=== PATIENT | female | born 1935 | race Caucasian/White ===

== ENCOUNTER 2016-09-02 05:07 | Inpatient (IN) | payer MEDICARE, OTHER ==
[~2016-09-02] VITALS: Ht 152.4 cm; Wt 73.3 kg
[~2016-09-02 05:07] MED LIST: AMLO5TAB4 PO; CALC500T11 PO; CHOL500051 PO; CLON0.2T5 PO; DOCU-144 PO; EZET10TA3 PO; FER325 PO; GLIM2TAB PO; HYDR-3498 PO; LORA1TAB PO; MECL12.574 PO; METO25TA7 PO; OLME40TA14 PO; OMEP20CA16 PO; ROSU20TA PO; SENN8.6C3 PO; SOLI5TAB5 PO; ZOLP5TAB PO
[2016-09-02] MEDS ORDERED: morphine 4 MG/ML VIAL IV STA ×2 (05:12→20:17)
[2016-09-02] MEDS ORDERED: HYDROmorphONE 1 MG/ML SYG IV STA ×3 (05:14→08:30)
--- NOTE | 2016-09-02 06:12 | RADRPT ---
PROCEDURE: Right hip. CLINICAL INDICATION: Pain. TECHNIQUE: Two views of the right hip were obtained. COMPARISON: 01/19/2015. FINDINGS: There is comminuted fractures of the right proximal humerus involving in the intertrochanteric regio n. There is a mildly displaced fracture of the right lesser trochanter. There is no dislocation. T here is mild narrowing of the right hip joint space. Bone mineralization is within normal limits. There is no radiopaque foreign body or abnormal calcification. IMPRESSION: Comminuted right intertrochanteric and proximal femoral shaft fractures. .Judson Burr MD, Date Time Electronically viewed and signed by .Judson Burr MD, MD on 09/02/2016 06:12 .T/
[2016-09-02] MEDS ORDERED: ONDANSETRON 4 MG INJ IV STA (06:29)
[2016-09-02] MEDS ORDERED: LORAZEPAM 2 MG INJ IV ONE (07:00)
[2016-09-02 07:17] LABS: ADD SCAN DIFF NO
[2016-09-02 07:21] LABS: ABNORMAL IP MESSAGE 1; HEMATOCRIT 36.7 % (37.0-47.0); HEMOGLOBIN 12.2 g/dl (12.0-16.0); MEAN CORPUSCULAR HEMOGLOBIN 30.7 pg (29.0-33.0); MEAN CORPUSCULAR HGB CONC 33.2 g/dl (32.0-37.0); MEAN CORPUSCULAR VOLUME 92.2 fl (82.0-101.0); MEAN PLATELET VOLUME 10.2 fl (7.4-10.4); PLATELET COUNT 258 10^3/UL (140-415); RED BLOOD COUNT 3.98 10^6/ul (4.20-5.40); RED CELL DISTRIBUTION WIDTH 12.6 % (11.5-14.5)
[2016-09-02 07:26] LABS: INR 1.01; PARTIAL THROMBOPLASTIN TIME 25.4 Sec (25.0-35.0); PROTIME 13.3 Sec (12.2-14.2)
[2016-09-02 07:28] LABS: ALANINE AMINOTRANSFERASE 30 IU/L (13-69); ALBUMIN 4.2 g/dl (3.3-4.9); ALBUMIN/GLOBULIN RATIO 1.27; ALKALINE PHOSPHATASE 52 IU/L (42-121); ANION GAP 16 (8-16); ASPARTATE AMINO TRANSFERASE 21 IU/L (15-46); BILIRUBIN,INDIRECT 0.1 mg/dl (0-1.1); BILIRUBIN,TOTAL 0.1 mg/dl (0.2-1.3); BLOOD UREA NITROGEN 20 mg/dl (7-20); CALCIUM 9.5 mg/dl (8.4-10.2); CARBON DIOXIDE 24 mmol/L (21-31); CHLORIDE 105 mmol/L (97-110); GLUCOSE 177 mg/dl (70-220); POTASSIUM 3.9 mmol/L (3.5-5.1); SODIUM 141 mmol/L (135-144); TOTAL PROTEIN 7.5 g/dl (6.1-8.1)
--- NOTE | 2016-09-02 07:30 | RADRPT ---
PROCEDURE: XR Chest. CLINICAL INDICATION: Status post fall, hip fracture. TECHNIQUE: AP Portable chest. COMPARISON: Chest x-ray 01/31/2014. FINDINGS: The cardiomediastinal silhouette is normal. Atherosclerotic calcifications of the thoracic aorta ar e noted. There are scattered interstitial markings seen in the lungs bilaterally, stable since the prior study. No areas of consolidation are noted. No pleural effusion is seen. Degenerative change s of the thoracic spine are evident. IMPRESSION: 1. No radiographic evidence of acute cardiopulmonary disease. 2. Unchanged interstitial prominence in the lungs bilaterally. 3. Atherosclerotic calcifications of the thoracic aorta. RPTAT: HJAH .Jo Gonzalez MD, MD Date Time Electronically viewed and signed by .Jo Gonzalez MD, on 09/02/2016 07:29 .H/
[2016-09-02 07:43] LABS: TROPONIN-I < 0.012 ng/ml (0.00-0.12)
--- NOTE | 2016-09-02 08:36 | ERA ---
ER Documentation Chief Complaint Date/Time DATE: 09/02/16 TIME: 08:33 Chief Complaint BIBA RA39, rt hip pain r/t fall, possible dislocation HPI This is an 81-year-old female who was getting up to use the bathroom early this morning and she lost her balance and sustained a mechanical fall that resulted in her landing on her right hip, resulting in a inability to stand or move her right leg due to pain. There is no loss of consciousness no head injury. She denies headache neck pain back pain chest pain shortness of breath abdominal pain. Patient is sharp pain in her right hip this worse with movement and better with rest. No radiation of pain. ROS All systems reviewed and are negative except as per history of present illness. Medications Home Meds Active Scripts Clonidine Hcl* (Clonidine Hcl*) 0.2 Mg Tablet, 0.2 MG PO Q8 Y for SBP>170, #30 TAB Prov:EDINSON PAREDES 03/21/16 Docusate Sodium* (Colace*) 100 Mg Capsule, 100 MG PO TID, #30 Prov:RUDY CARRIZALES MD 01/19/15 Hydrocodone Bit-Acetaminophen* (Olalla*) 5-325 Mg Tab, 1 TAB PO Q6 Y for PAIN, # 16 TAB Prov:RUDY CARRIZALES MD 01/19/15 Reported Medications Omeprazole* (Omeprazole*) 20 Mg Capsule.dr, 20 MG PO DAILY, #30 CAP 03/18/16 Meclizine Hcl* (Antivert*) 12.5 Mg Tab, 12.5 MG PO Q8H Y for VERTIGO, #30 TAB 03/18/16 Ezetimibe* (Zetia*) 10 Mg Tablet, 10 MG PO HS, TAB 03/18/16 Rosuvastatin Calcium* (Crestor*) 20 Mg Tablet, 20 MG PO QHS, #30 TAB 03/18/16 Calcium Carbonate (Oysco-500) 500 Mg Tablet, 500 MG PO DAILY, TAB 03/18/16 Cholecalciferol (Vitamin D3) (Vitamin D3) 50,000 Unit Capsule, 88668 UNIT PO WEEKLY, CAP 03/18/16 Solifenacin* (Vesicare*) 5 Mg Tablet, 5 MG PO DAILY, TAB 03/18/16 Lorazepam* (Lorazepam*) 1 Mg Tablet, 1 MG PO QPM, TAB 01/31/14 Lorazepam* (Lorazepam*) 1 Mg Tablet, 0.5 MG PO QAM, TAB 01/31/14 Zolpidem Tartrate* (Ambien*) 5 Mg Tablet, 10 MG PO HS Y for INSOMNIA, TAB 01/31/14 Sennosides* (Senna*) 8.6 Mg Capsule, 17.2 MG PO BID, CAP 01/31/14 Olmesartan Medoxomil (Benicar) 40 Mg Tablet, 40 MG PO DAILY, TAB 01/31/14 Ferrous Sulfate* (Ferrous Sulfate*) 325 Mg Tabec, 325 MG PO DAILY, TAB 01/31/14 Amlodipine Besylate* (Norvasc*) 5 Mg Tablet, 5 MG PO DAILY, TAB 01/31/14 Metoprolol Succinate* (Toprol XL*) 25 Mg Tab.sr.24h, 25 MG PO DAILY, TAB 01/31/14 Glimepiride* (Glimepiride*) 2 Mg Tablet, 2 MG PO BID, TAB 01/31/14 Allergies Allergies: Coded Allergies: aspirin (Verified Allergy, Mild, 01/31/14) ibuprofen (Verified Allergy, Unknown, 01/31/14) PMhx/Soc History of Surgery: Yes (R Colles' fx, lap. cholecystectomy, appy, cataract) Anesthesia Reaction: No Hx Neurological Disorder: Yes (DM type 2) Hx Respiratory Disorders: No Hx Cardiac Disorders: Yes (HTN) Hx Psychiatric Problems: No Hx Alcohol Use: No Hx Substance Use: No Hx Tobacco Use: No Smoking Status: Never smoker FmHx Family History: No coronary disease Physical Exam Vitals Vital Signs Date Time Temp Pulse Resp B/P Pulse Ox O2 Delivery O2 Flow Rate FiO2 09/02/16 06:33 Nasal Cannula 2 09/02/16 06:13 98.2 104 18 196/77 97 Room Air 09/02/16 05:11 98.2 95 18 184/98 98 09/02/16 05:10 100 20 185/80 100 Room Air Physical Exam Const: Well-developed, well-nourished Head: Atraumatic, normocephalic Eyes: Normal Conjunctiva, PERRLA, EOMI, normal sclera, no nystagmus ENT: Normal External Ears, Nose and Mouth, moist mucus membranes. Neck: Full range of motion. No meningismus, no lymphadenopathy. Resp: Clear to auscultation bilaterally, no wheezing, rhonchi, rales Cardio: Regular rate and rhythm, no murmurs, S1 S2 present Abd: Soft, non tender x 4, non distended. Normal bowel sounds, no guarding or rebound, no pulsitile abdominal masses or bruits Skin: No petechiae or rashes, no ecchymosis , no maculopapular rash Back: No midline or flank tenderness Ext: No cyanosis, or edema, FROM x 4, normal inspection, neurovascularly intact x 3, there is no movement of the right hip due to pain. There is a deformity of the right leg is shortened Neur: Awake and alert, STR 5/5 x 4, sensation intact x 4, no focal findings, cerebellum intact Psych: Normal Mood and Affect Result Diagram: 09/02/1651409/02/1615 Results 24 hrs Laboratory Tests Test 09/02/16 05:15 White Blood Count 14.110^3/ul Red Blood Count 3.9810^6/ul Hemoglobin 12.2g/dl Hematocrit 36.7% Mean Corpuscular Volume 92.2fl Mean Corpuscular Hemoglobin 30.7pg Mean Corpuscular Hemoglobin Concent 33.2g/dl Red Cell Distribution Width 12.6% Platelet Count 08508^3/UL Mean Platelet Volume 10.2fl Prothrombin Time 13.3Sec Prothrombin Time Ratio 1.0 INR International Normalized Ratio 1.01 Activated Partial Thromboplast Time 25.4Sec Sodium Level 141mmol/L Potassium Level 3.9mmol/L Chloride Level 105mmol/L Carbon Dioxide Level 24mmol/L Anion Gap 16 Blood Urea Nitrogen 20mg/dl Creatinine 0.90mg/dl Glucose Level 177mg/dl Calcium Level 9.5mg/dl Total Bilirubin 0.1mg/dl Direct Bilirubin 0.00mg/dl Indirect Bilirubin 0.1mg/dl Aspartate Amino Transf (AST/SGOT) 21IU/L Alanine Aminotransferase (ALT/SGPT) 30IU/L Alkaline Phosphatase 52IU/L Troponin I < 0.012ng/ml Total Protein 7.5g/dl Albumin 4.2g/dl Globulin 3.30g/dl Albumin/Globulin Ratio 1.27 Current Medications Medications (Trade) Dose Ordered Sig/Roxie Route PRN Reason Start Time Stop Time Status Last Admin Dose Admin Morphine Sulfate (morphine) 4 mg ONCE STAT IV 09/02/16 05:12 09/02/16 05:15 DC Hydromorphone HCl (Dilaudid) 1 mg ONCE STAT IV 09/02/16 05:14 09/02/16 05:15 DC 09/02/16 05:19 Hydromorphone HCl (Dilaudid) 1 mg ONCE STAT IV 09/02/16 06:29 09/02/16 06:32 DC 09/02/16 06:34 Ondansetron HCl (Zofran Inj) 4 mg ONCE STAT IV 09/02/16 06:29 09/02/16 06:32 DC 09/02/16 06:36 Lorazepam (Ativan) 1 mg ONCE ONCE IV 09/02/16 07:00 09/02/16 07:01 DC 09/02/16 07:04 Hydromorphone HCl (Dilaudid) 1 mg ONCE STAT IV 09/02/16 08:30 09/02/16 08:31 DC 09/02/16 08:33 Procedures/MDM PROCEDURE: XR Chest. CLINICAL INDICATION: Status post fall, hip fracture. TECHNIQUE: AP Portable chest. COMPARISON: Chest x-ray 01/31/2014. FINDINGS: The cardiomediastinal silhouette is normal. Atherosclerotic calcifications of the thoracic aorta are noted. There are scattered interstitial markings seen in the lungs bilaterally, stable since the prior study. No areas of consolidation are noted. No pleural effusion is seen. Degenerative changes of the thoracic spine are evident. IMPRESSION: 1. No radiographic evidence of acute cardiopulmonary disease. 2. Unchanged interstitial prominence in the lungs bilaterally. 3. Atherosclerotic calcifications of the thoracic aorta. RPTAT: HJAH .Jo Gonzalez MD, Date Time Electronically viewed and signed by .Jo Gonzalez MD, on 09/02/2016 07:29 .H/ CC: BEE KOCH DO PROCEDURE: Right hip. CLINICAL INDICATION: Pain. TECHNIQUE: Two views of the right hip were obtained. COMPARISON: 01/19/2015. FINDINGS: There is comminuted fractures of the right proximal humerus involving in the intertrochanteric region. There is a mildly displaced fracture of the right lesser trochanter. There is no dislocation. There is mild narrowing of the right hip joint space. Bone mineralization is within normal limits. There is no radiopaque foreign body or abnormal calcification. IMPRESSION: Comminuted right intertrochanteric and proximal femoral shaft fractures. .Judson Burr MD, Date Time Electronically viewed and signed by .Judson Burr MD, on 09/02/2016 06:12 .T/ CC: SOWMYA MODI DO Spoke with Dr. Roberts of orthopedics will see her in consultation. Spoke with Dr. Wall of panel for admission. She will get surgical clearance before operative repair right hip fracture EKG: Rate/Rhythm: Normal Sinus Rhythm,NL intervals QRS, ST, QT: NORMAL [place], QRS, QT] Impression: NORMAL EKG Departure Diagnosis: Primary Impression: Comminuted fracture of right hip Qualified Code: S72.091A - Comminuted fracture of right hip, closed, initial encounter Condition: Stable BEE KOCH RhondaBonifacio RAY September 02, 2016 08:36
[2016-09-02] MEDS ORDERED: SOD CHLORIDE 0.9% 1,000 ML IV SCH (08:37)
[2016-09-02 08:56] LABS: EOSINOPHILS # 0.3 10^3/ul (0.0-0.5); LYMPHOCYTES # 10.3 10^3/ul (0.8-2.9); MONOCYTE # 0.4 10^3/ul (0.3-0.9); NEUTROPHIL # 3.1 10^3/ul (1.6-7.5)
[2016-09-02 08:57] LABS: BURR CELLS OCCASIONAL
[2016-09-02] MEDS ORDERED: ACETAMINOPHEN 325 MG TAB PO PRN ×2 (09:00→10:00)
[2016-09-02] MEDS ORDERED: ONDANSETRON 4 MG INJ IV PRN ×2 (09:00→10:00)
[2016-09-02] MEDS ORDERED: morphine 2 MG INJ IV PRN (10:00)
[2016-09-02] MEDS ORDERED: NACL 0.9% 3 ML SYG IV SCH (10:00)
[2016-09-02] MEDS ORDERED: BISACODYL (EC) 5 MG TAB PO PRN (10:00)
[2016-09-02] MEDS ORDERED: hydrALAzine 20 MG INJ IV PRN (10:00)
[2016-09-02] MEDS ORDERED: MAGNESIUM HYDROXIDE 30ML CUP PO PRN (10:00)
[2016-09-02 10:21] VITALS: TEMP 98.3
[2016-09-02] MEDS ORDERED: Discontinue Glyburide, Glipizide, and/or Glimepiride prior to starting Insulin XX ONE (10:30)
[2016-09-02] MEDS ORDERED: GLUCOSE GEL 15 GRAM TUBE BUCCAL PRN (10:30)
[2016-09-02] MEDS ORDERED: DEXTROSE 50% 50 ML SYRINGE IV PRN ×2 (10:30)
[2016-09-02] MEDS ORDERED: GLUCOSE GEL 15 GRAM TUBE PO PRN ×2 (10:30)
[2016-09-02] MEDS ORDERED: HYPOGLYCEMIA PROTOCOL when Glucose is <70 mg/dL or symptomatic <90 mg/dL. XX ONE (10:30)
[2016-09-02] MEDS ORDERED: GLUCAGON 1 MG INJ IM PRN (10:30)
[2016-09-02 11:00] VITALS: Ht 152.4 cm; Wt 73.3 kg
[2016-09-02 11:10] VITALS: BP 185/80; RESP 24
[2016-09-02] MEDS: HYDROCODONE/APAP (5/325) TAB PO PRN ×2 (12:48→19:02)
[2016-09-02] MEDS: DOCUSATE SODIUM 100 MG CAP PO SCH ×2 (12:48→21:06)
[2016-09-02] MEDS: INSULIN ASPART [NOVOLOG] 3 ML PEN SC SCH ×5 (12:57→21:00)
[2016-09-02] MEDS ORDERED: morphine 2 MG INJ IV STA (15:09)
[2016-09-02] MEDS ORDERED: morphine 4 MG/ML VIAL IV PRN (15:30)
--- NOTE | 2016-09-02 16:15 | HP ---
DATE OF ADMISSION: 09/02/2016 TIME OF EVALUATION: 9:00 a.m. REASON FOR ADMISSION: Status post mechanical fall with right hip pain. CONSULTATIONS: 1. Dr. Ashok Roberts, Orthopedic Surgery. 2. Dr. Richardson Cannon, Cardiology. HISTORY OF PRESENT ILLNESS: This is an 81-year-old Ma[place] female with past medical history of essential hypertension, type 2 diabetes mellitus, dyslipidemia, carotid artery disease, multiple falls and recent left inferior and superior pubic rami fracture in 03/2016, who was brought to the emergency room status post fall at home. As per the patient's son, who was at the bedside , the patient had a mechanical fall while she was trying to get out of the bathroom. There was no reported presyncope or syncope. There was no reported loss of consciousness. There was no reported head injury. The patient uses a walker for walking. After the fall, the patient was having a sharp right hip pain and also noticeable deformity of the right hip joint. Hence, the patient was brought to the emergency room. The patient denied any chest pain, dyspnea, abdominal pain, diarrhea, hematochezia or dysuria. In the emergency room, the patient underwent a right hip x-ray that showed comminuted right intertrochanteric and proximal femoral shaft fractures. The patient was noticed to have leukocytosis with no bandemia. The patient's chest x-ray was negative for acute intra-thoracic findings. The patient was treated with IV analgesics in the emergency room. 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 Left inferior and superior pubic rami fracture. PAST SURGICAL HISTORY: Laparoscopic cholecystectomy, appendectomy, cataract surgery. HOME MEDICATIONS: 1. Clonidine 0.2 mg p.o. q.8 hours p.r.n. SBP greater than 170 mmHg. 2. Colace 100 mg p.o. t.i.d. 3. [place] 5/325 one tablet p.o. q.6 hours p.r.n. pain 4. Meclizine 12.5 mg p.o. q.8 hours p.r.n. vertigo. 5. Zetia 10 mg p.o. at bedtime. 6. Crestor 20 mg p.o. at bedtime. 7. Calcium carbonate 500 mg p.o. daily. 8. Vitamin D3 50,000 units p.o. weekly. 9. VESIcare 5 mg p.o. daily. 10. Lorazepam 1 mg p.o. q.a.m. p.r.n. anxiety. 11. Ambien 10 mg p.o. at bedtime p.r.n. insomnia. 12. Benicar 40 mg p.o. daily. 13. Ferrous sulfate 325 mg p.o. daily. 14. Amlodipine 5 mg p.o. daily. 15. Metoprolol succinate 25 mg p.o. daily. 16. Glimepiride 20 p.o. b.i.d. ALLERGIES: 1. ASPIRIN. 2. IBUPROFEN. SOCIAL HISTORY: The patient lives at home with her family. The patient currently uses a walker for ambulation. She denied any history of tobacco, alcohol or illicit drug use. REVIEW OF SYSTEMS: A 12-point review of systems were made and review of systems are negative other than what is mentioned in the history of present illness. PHYSICAL EXAMINATION: VITAL SIGNS: Temperature 98.2, pulse rate 80, respiratory rate 15, blood pressure is 177/60, oxygen saturation 97% on room air. GENERAL: This is a fragile looking 81-year-old female lying in bed in no apparent distress. HEENT: Head normocephalic and atraumatic. Eyes: Anicteric sclerae. Conjunctivae clear. ENT: Nasal septum is midline. Mucosa is dry. NECK: Supple. JVD noticed. RESPIRATORY: Bilaterally diminished breath sounds. No use of accessory muscles of respiration. No adventitious breath sounds. CARDIAC: S1, S2 heard. Regular rate and rhythm. GASTROINTESTINAL: Abdomen soft, nontender, nondistended. Bowel sounds positive in all 4 quadrants. GENITOURINARY: Deferred. EXTREMITIES: Right lower extremity externally rotated right hip joint. Tenderness to palpation of the right hip. Bilateral lower extremity pedal edema. Bilateral lower extremities, diminished peripheral pulses. NEUROLOGIC: The patient is awake, alert and oriented. Cranial nerves are grossly intact. LABORATORY AND DIAGNOSTIC DATA: WBC 14.1, hemoglobin 12.2, hematocrit 36.7, platelet count 258. Sodium 141, potassium 3.9, chloride 105, carbon dioxide 24 , anion gap 15, BUN 20, creatinine 0.96, glucose 177, calcium 9.5, AST 21, ALT 30, alkaline phosphatase 52. Troponin 0.012. PT 13.3, INR 1.01, aPTT 25.4. Chest x-ray: No acute intrathoracic findings. Hip x-ray. Comminuted right intratrochanteric and proximal femoral shaft fractures. IMPRESSION: This is an 81-year-old female with multiple comorbidities who was brought to the emergency room status post a fall at home with resultant right hip intertrochanteric fracture and proximal femoral shaft fracture, who will be admitted here for further treatment and evaluation. ASSESSMENT AND PLAN: 1. Status post mechanical fall with right femoral intratrochanteric and the proximal femoral shaft fracture. The patient will be kept on bed rest. The patient was provided with adequate pain control. The patient probably needs surgical repair. Cardiology consult will be obtained for cardiac clearance since the patient has multiple comorbidities. 2. Essential hypertension. The patient was maintained on antihypertensives including p.r.n. antihypertensives for any systolic blood pressure readings greater than 160 mmHg. 3. Type 2 diabetes mellitus. The patient will be started on sliding scale insulin along with basal insulin and premeal insulin. 4. Dyslipidemia. The patient will be maintained on a statin. A fasting lipid panel will be obtained. 5. 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 6. Osteoporosis. The patient will be maintained on vitamin D supplements. A vitamin D level will be obtained. 7. Leukocytosis, most probably reactive in origin. Will obtain a urinalysis on this patient. Plan. The patient will be admitted to inpatient setting. The patient will be started on a carbohydrate controlled low cholesterol diet. The patient was started on DVT prophylaxis and gastrointestinal prophylaxis. The patient will remain a FULL CODE. Activities will be as tolerated. The rest of the patient's management will be based on her clinical course, the results of diagnostic studies, and inputs from consultants. Based on the patient's clinical presentation, she most probably requires more than 2 midnights' stay for further management and evaluation of her clinical presentation. The case and management of this patient was fully discussed with Dr. Wall. CELY WALL MD, AM/THOMAS Conf#: [id number] DID#: [id number] [facility]
[2016-09-02] MEDS: morphine 4 MG/ML VIAL IV PRN (17:27)
--- NOTE | 2016-09-02 18:18 | CONS ---
DATE OF ADMISSION: 09/02/2016 DATE OF CONSULTATION: 09/02/2016 HISTORY OF PRESENT ILLNESS: The patient is an 81-year-old [place] female who was admitted on 09/02 when she was brought into the emergency room because of the painful swelling and deformity inv olving her right hip. She obviously was ambulating with walker until the day of injury, when she shelby d sustained a ground-level fall while she was trying to get out of the bathroom. Following the fall , there was a severe pain and swelling involving the right hip and she was not able to stand up or w alk. She is known to have multiple medical problems including essential hypertension, diabetes mellitus, dyslipidemia, carotid artery disease. Because of her multiple falls in the past, she had a pelvic f racture in March 2016. She obviously was conscious after the accident. She denies any head inju malcom. PHYSICAL EXAMINATION: My examination revealed an 81-year-old female who seems to be alert and orien kulwant, even though there was a language barrier. There was tenderness and swelling around the right h ip. Her right lower extremity was obviously shortened and externally rotated. There was no evidenc e of acute neurovascular compromise involving the right lower extremity. DIAGNOSTIC STUDIES: X-rays of the right hip revealed a severely comminuted intertrochanteric fractu re and subtrochanteric fracture. The greater trochanter and lesser trochanter were obviously averse d. DIAGNOSTIC IMPRESSION: Four part intertrochanteric and subtrochanteric fracture of the right femur, extremely comminuted and obviously unstable. TREATMENT PLAN: To carry out the open reduction and internal fixation as soon as she can be medical ly cleared for surgery. Dictated By: ADIN KWAN MD IK/NTS Conf#: [id number] DID#: [id number] CC: ANGELA DURHAM MD;*EndCC*
[2016-09-02 18:57] VITALS: BP 193/79; RESP 18
[2016-09-02] MEDS ORDERED: HYDROCODONE/APAP (10/325) TAB PO PRN (20:30)
[2016-09-02] MEDS ORDERED: GLIMEPIRIDE 2 MG TAB PO SCH (21:00)
[2016-09-02] MEDS ORDERED: ZOLPIDEM 5 MG TAB PO PRN (21:00)
[2016-09-02] MEDS: EZETIMIBE 10 MG TAB PO SCH (21:06)
[2016-09-02] MEDS: FAMOTIDINE 20 MG TAB PO SCH (21:06)
[2016-09-02] MEDS: ATORVASTATIN 80 MG TAB PO SCH (21:06)
[2016-09-02] MEDS: INSULIN GLARGINE [LANtus] 3 ML PEN SC SCH (21:27)
[2016-09-02 21:30] VITALS: BP 140/65; RESP 16
[2016-09-03] MEDS: morphine 4 MG/ML VIAL IV PRN ×5 (00:46→22:02)
[2016-09-03] MEDS: ACCUCHECK AT 2AM (Patients on SS coverage) XX SCH ×2 (02:00→22:51)
[2016-09-03] MEDS ORDERED: HYDROmorphONE 1 MG/ML SYG IV STA (03:46)
[2016-09-03] MEDS: HYDROCODONE/APAP (10/325) TAB PO PRN ×3 (03:57→15:40)
[2016-09-03 05:54] LABS: ADD SCAN DIFF NO
[2016-09-03 05:58] LABS: BASOPHILS % 0.2 % (0.0-2.0); EOSINOPHILS # 0.1 10^3/ul (0.0-0.5); EOSINOPHILS % 0.5 % (0.0-7.0); HEMATOCRIT 31.3 % (37.0-47.0); HEMOGLOBIN 9.9 g/dl (12.0-16.0); LYMPHOCYTES # 4.5 10^3/ul (0.8-2.9); LYMPHOCYTES % 36.3 % (15.0-51.0); MEAN CORPUSCULAR HEMOGLOBIN 29.7 pg (29.0-33.0); MEAN CORPUSCULAR HGB CONC 31.6 g/dl (32.0-37.0); MEAN PLATELET VOLUME 10.1 fl (7.4-10.4); MONOCYTE # 1.1 10^3/ul (0.3-0.9); MONOCYTES % 9.2 % (0.0-11.0); NEUTROPHIL # 6.6 10^3/ul (1.6-7.5); NEUTROPHILS % 53.4 % (39.0-77.0); PLATELET COUNT 197 10^3/UL (140-415); RED BLOOD COUNT 3.33 10^6/ul (4.20-5.40); WHITE BLOOD COUNT 12.4 10^3/ul (4.8-10.8)
[2016-09-03 06:19] LABS: CHOL/HDL RATIO 1.8 RATIO; MAGNESIUM 1.2 mg/dl (1.7-2.5); PHOSPHORUS 4.6 mg/dl (2.5-4.9)
[2016-09-03 06:26] LABS: TROPONIN-I 0.061 ng/ml (0.00-0.12)
--- NOTE | 2016-09-03 06:53 | CONS ---
DATE OF ADMISSION: 09/02/2016 DATE OF CONSULTATION: 09/02/2016 REASON FOR CONSULTATION: Preop cardiac clearance. HISTORY OF PRESENT ILLNESS: The patient is an 81-year-old female who had a fall in the middle of e night as she was going to the restroom. Apparently per son she felt dizzy prior to the fall, but n o syncope. No history of palpitations, chest pain, shortness of breath. No nausea, vomiting, no fe destinee, chills or rigors. PAST MEDICAL HISTORY: Significant for: 1. Coronary artery disease status post myocardial infarction. 2. Obesity. 3. Urinary incontinence. 4. Anxiety disorder. 5. Bilateral carotid artery stenosis. 6. Osteoporosis. 7. Alzheimer disease. 8. History of pelvic fracture. SOCIAL HISTORY: No smoking, alcohol or recreational drugs. ALLERGIES: ASPIRIN, IBUPROFEN. CURRENT MEDICATIONS: 1. Lovenox. 2. Amlodipine. 3. Calcium carbonate. 4. Ferrous sulfate. 5. Metoprolol. 6. VESIcare. 7. Losartan. 8. Vitamin D. 9. Famotidine. 10. Zetia. 11. Insulin. 12. Lipitor. 13. Colace. REVIEW OF SYSTEMS: unremarkable except that mentioned in the HPI. PHYSICAL EXAMINATION: VITAL SIGNS: Temperature 98.1, heart rate of 65, blood pressure 113/57 mmHg, breathing at 18 and sa turating 98%. GENERAL: Patient awake, alert, in no apparent distress. NECK: No JVD or carotid bruit. CARDIOVASCULAR: Regular rate and rhythm, no murmur, rub or gallop. LUNGS: Clear to auscultation. ABDOMEN: Soft. Bowel sounds are present. There is no organomegaly. EXTREMITIES: No pedal edema. Pedal pulses are felt bilaterally. DIAGNOSTIC DATA: Review of 12-lead EKG shows normal sinus rhythm with a ventricular rate of 92 beat s per minute with normal ID, normal QRS and normal QT interval. There was no acute ST-T wave change s. Chest x-ray shows no congestion or infiltrates. Hip x-ray shows right intertrochanteric and proximal femoral shaft fracture. LABORATORY DATA: WBC of 40.1, hemoglobin 12.2, hematocrit 36.7, with a platelet of 258. Sodium 141 , potassium 3.9, chloride 105, CO2 24, BUN 20, creatinine 0.9. Troponin first set is negative. TSH is elevated at 5.3. ASSESSMENT AND PLAN: 1. An 81-year-old female with a right intertrochanteric and proximal femoral shaft fracture. 2. Coronary artery disease status post myocardial infarction. 3. Hypertension. 4. Diabetes. 5. Dyslipidemia. 6. History of pelvic fracture. 7. Osteoporosis. 8. DJD. Review of 12-lead EKG shows normal sinus rhythm with no acute ST-T wave changes. SUMMARY: 1. Recommend a 2-D echo to assess for segmental wall motion abnormality and rule out for pulmonary hypertension and pericardial disease. 2. Recommend Lexiscan to rule out for reversible ischemia, since she has history of coronary artery disease status post [place] in the past and with traditional cardiac risk factors. 3. Trend troponins, BMP. 4. Continue current metoprolol, amlodipine and losartan as scheduled. 5. Continue Zetia and Lipitor. 6. Continue Insulin. 7. Continue GI and DVT prophylaxis. Patient will be cleared after review of 2D echocardiogram and stress test. Dictated By: MICHAEL DOWD MD SR/THOMAS Conf#: [id number] DID#: [id number]
[2016-09-03 06:57] LABS: POTASSIUM 3.9 mmol/L (3.5-5.1)
[2016-09-03 06:59] LABS: CREATININE 0.78 mg/dl (0.44-1.00)
[2016-09-03 07:00] LABS: CALCIUM 8.3 mg/dl (8.4-10.2)
[2016-09-03 07:37] VITALS: BP 121/59; RESP 18
[2016-09-03] MEDS: INSULIN ASPART [NOVOLOG] 3 ML PEN SC SCH ×7 (08:03→20:18)
[2016-09-03] MEDS: SOLIFENACIN 5 MG TAB PO SCH (08:04)
[2016-09-03] MEDS: METOPROLOL (XL) 25 MG TAB PO SCH (08:04)
[2016-09-03] MEDS: LOSARTAN 50 MG TAB PO SCH (08:04)
[2016-09-03] MEDS: CHOLECALCIFEROL 1,000 UNIT TAB PO SCH (08:04)
[2016-09-03] MEDS: CALCIUM CARBONATE 1.25 GM TAB PO SCH (08:04)
[2016-09-03] MEDS: AMLODIPINE 5 MG TAB PO SCH (08:04)
[2016-09-03] MEDS: FERROUS SULFATE (EC) 325 MG TAB PO SCH (08:04)
[2016-09-03] MEDS: DOCUSATE SODIUM 100 MG CAP PO SCH ×3 (08:04→20:17)
[2016-09-03] MEDS: ENOXAPARIN 30 MG/0.3 ML SYG SC SCH (08:05)
[2016-09-03] MEDS: REGADENOSON 0.4 MG/5 ML SYG ONE ×2 (10:53→11:55)
[2016-09-03] MEDS: LORAZEPAM 2 MG INJ IV PRN (11:23)
--- NOTE | 2016-09-03 12:02 | CONS ---
Date/Time of Note Date/Time of Note DATE: 09/03/16 TIME: 11:54 Assessment/Plan Assessment/Plan Chief Complaint/Hosp Course Imp: 1.Pre-op-for Hiop fx 2. s/p fall-? mechanical 3. H/O cad/MA 4.HTN 5.Dyslipidemia Recc: -Continue BB/ARB/CCB -Continue pain control -Lexiscan stress test today Problems: Consultation Date/Type/Reason Admit Date/Time September 02, 2016 at 08:37 Initial Consult Date 09/02/2016 Type of Consultation: Cardiology Reason for Consultation Pre-op Referring Provider: ANGELA DURHAM Exam/Review of Systems Vital Signs Vitals Vital Signs Date Time Temp Pulse Resp B/P Pulse Ox O2 Delivery O2 Flow Rate FiO2 09/03/16 07:37 98.8 110 18 121/59 96 09/02/16 21:30 Nasal Cannula 2.0 Intake and Output 09/02/16 09/02/16 09/03/16 15:00 23:00 07:00 Intake Total 740 ml 720 ml Output Total 700 ml 500 ml Balance 40 ml 220 ml Exam Review of Systems: CONSTITUTIONAL: No fevers, chills. PULMONARY: No sob CARDIOVASCULAR: No chest pain/palpitations GASTROINTESTINAL: No nausea/vomiting. GENITOURINARY: No hematuria/dysuria. MUSCULOSKELETAL: No myagias/arthalgias. PSYCHIATRIC: The patient denies depression. NEUROLOGIC: No weakness Constitutional: alert Psych: no complaints Head: normocephalic ENMT: mucosa pink and moist Neck: jvd, supple Respiratory: diminished breath sounds (at bases/B) Cardiovascular: regular rate and rhythm Gastrointestinal: non-tender, soft Musculoskeletal: other (s/p Hip fx) Results Result Diagram: 09/03/16 0525 09/03/16 0525 Results 24 hrs Laboratory Tests Test 09/02/16 12:20 09/02/16 17:29 09/02/16 18:35 09/02/16 21:09 Bedside Glucose 185 110 129 Troponin I 0.068 Test 09/03/16 00:21 09/03/16 05:25 09/03/16 07:57 Troponin I 0.075 0.061 White Blood Count 12.4 H Red Blood Count 3.33 L Hemoglobin 9.9 L Hematocrit 31.3 L Mean Corpuscular Volume 94.0 Mean Corpuscular Hemoglobin 29.7 Mean Corpuscular Hemoglobin Concent 31.6 L Red Cell Distribution Width 13.0 Platelet Count 197 # Mean Platelet Volume 10.1 Neutrophils % 53.4 Lymphocytes % 36.3 Monocytes % 9.2 Eosinophils % 0.5 Basophils % 0.2 Nucleated Red Blood Cells % 0.0 Neutrophils # 6.6 Lymphocytes # 4.5 H Monocytes # 1.1 H Eosinophils # 0.1 Basophils # 0.0 Nucleated Red Blood Cells # 0.0 Sodium Level 142 Potassium Level 3.9 Chloride Level 106 Carbon Dioxide Level 24 Anion Gap 16 Blood Urea Nitrogen 15 Creatinine 0.78 Glucose Level 153 Calcium Level 8.3 L Phosphorus Level 4.6 Magnesium Level 1.2 L Triglycerides Level 109 Cholesterol Level 73 L LDL Cholesterol, Calculated 11 HDL Cholesterol 40 Cholesterol/HDL Ratio 1.8 Bedside Glucose 132 Medications Medications Current Medications Lorazepam (Ativan) 0.5 mg Q6H PRN IV ANXIETY Last administered on 09/03/16 11: 23; Admin Dose 0.5 MG; Start 09/02/16 at 10:00 Ondansetron HCl (Zofran Inj) 4 mg Q6H PRN IV NAUSEA AND/OR VOMITING; Start at 10:00 Acetaminophen (Tylenol Tab) 650 mg Q6H PRN PO PAIN LEVEL 1-3 OR FEVER; Start at 10:00 Magnesium Hydroxide (Milk Of Mag) 30 ml DAILY PRN PO CONSTIPATION; Start at 10:00 Bisacodyl (Dulcolax) 5 mg DAILY PRN PO CONSTIPATION; Start 09/02/16 at 10:00 Famotidine (Pepcid) 20 mg Q24H PO Last administered on 09/02/16 21:06; Admin Dose 20 MG; Start 09/02/16 at 21:00 Enoxaparin Sodium (Lovenox) 30 mg DAILY SC ; Start 09/03/16 at 09:00 Hydralazine HCl (Apresoline) 10 mg Q6H PRN IV SBP>160; Start 09/02/16 at 10:00 Amlodipine Besylate (Norvasc) 5 mg DAILY PO ; Start 09/03/16 at 09:00 Calcium Carbonate (Oyster Shell Calcium) 0.5 gm DAILY PO ; Start 09/03/16 at 09: 00 Docusate Sodium (Colace) 100 mg TID PO Last administered on 09/02/16 21:06; Admin Dose 100 MG; Start 09/02/16 at 13:00 EZETIMIBE (Zetia) 10 mg HS PO Last administered on 09/02/16 21:06; Admin Dose 10 MG; Start 09/02/16 at 21:00 Ferrous Sulfate (Ferrous Sulfate (Ec)) 325 mg DAILY PO ; Start 09/03/16 at 09:00 Metoprolol Succinate (Toprol Xl) 25 mg DAILY PO ; Start 09/03/16 at 09:00 Solifenacin (Vesicare) 5 mg DAILY PO ; Start 09/03/16 at 09:00 Losartan Potassium (Cozaar) 100 mg DAILY PO ; Start 09/03/16 at 09:00 Atorvastatin Calcium (Lipitor) 80 mg DAILY@21 PO Last administered on 21:06; Admin Dose 80 MG; Start 09/02/16 at 21:00 Cholecalciferol (Vitamin D) 1,000 unit DAILY PO ; Start 09/03/16 at 09:00 Insulin Glargine (Lantus) 15 unit DAILY@20 SC Last administered on 09/02/16 21 :27; Admin Dose 15 UNIT; Start 09/02/16 at 20:00 Miscellaneous Information 1 ea NOTE XX ; Start 09/02/16 at 10:30 Glucose (Glutose) 15 gm Q15M PRN PO DECREASED GLUCOSE; Start 09/02/16 at 10:30 Glucose (Glutose) 22.5 gm Q15M PRN PO DECREASED GLUCOSE; Start 09/02/16 at 10: 30 Dextrose (D50w Syringe) 25 ml Q15M PRN IV DECREASED GLUCOSE; Start 09/02/16 at 10:30 Dextrose (D50w Syringe) 50 ml Q15M PRN IV DECREASED GLUCOSE; Start 09/02/16 at 10:30 Glucagon (Glucagen) 1 mg Q15M PRN IM DECREASED GLUCOSE; Start 09/02/16 at 10:30 Glucose (Glutose) 15 gm Q15M PRN BUCCAL DECREASED GLUCOSE; Start 09/02/16 at 10 :30 Diagnostic Test (Pha) (Accu-Chek) 1 ea 02 XX ; Start 09/03/16 at 02:00 Morphine Sulfate (morphine) 4 mg Q4H PRN IV SEVERE PAIN LEVEL 7-10 Last administered on 09/03/16 08:01; Admin Dose 4 MG; Start 09/02/16 at 15:30 Morphine Sulfate (morphine) 4 mg Q4H PRN IV Pain; Start 09/02/16 at 15:30 Acetaminophen/ Hydrocodone Bitart ([place] (10/325)) 1 tab Q4H PRN PO PAIN Last administered on 09/02/16 22:33; Admin Dose 1 TAB; Start 09/02/16 at 20:30 Acetaminophen/ Hydrocodone Bitart ([place] (10/325)) 2 tab Q4H PRN PO PAIN Last administered on 09/03/16 10:04; Admin Dose 2 TAB; Start 09/03/16 at 04:00 AMANDA DICK September 03, 2016 12:02
[2016-09-03 13:11] VITALS: BP 199/73; PULSE 126; RESP 22
--- NOTE | 2016-09-03 13:17 | RADRPT ---
PROCEDURE: Lexiscan myocardial perfusion study CLINICAL INDICATION: 81 -year-old patient complaining of chest pain. TECHNIQUE: Lexiscan 0.4 mg intravenously separate acquisition gated myocardial perfusion SPECT usi ng Tc 99m Myoview 30.2 mCi intravenously at stress and Tc-99m Myoview, 10.0 mCi intravenously at res t was performed using the rest/stress sequence. Poststress Myoview SPECT images were obtained in th e supine position. COMPARISON: No prior studies. FINDINGS: Perfusion images reveal no evidence of perfusion defects. Lexiscan post stress gated SPECT images demonstrate no wall motion abnormalities. IMPRESSION: 1. Normal study with no evidence of perfusion defects or wall motion abnormalities. 2. The left ventricle ejection fraction at stress is greater than 70%. A call report was made to Dr. Metzger at 01:15 p.m. on September 03, 2016 RPTAT: HH .Stephanie Marin MD, Date Time Electronically viewed and signed by .Stephanie Marin MD, on 09/03/2016 13:16 .L/
--- NOTE | 2016-09-03 13:42 | PN ---
Date/Time of Note Date/Time of Note DATE: 09/03/16 TIME: 13:41 Assessment/Plan VTE Prophylaxis VTE Prophylaxis Intervention: LMWH Lines/Catheters IV Catheter Type (from [place]): Peripheral IV Urinary Cath still in place: Yes Reason Cath still needed: other (indicate) Assessment/Plan Chief Complaint/Hosp Course 1. Status post mechanical fall with right femoral intratrochanteric and the proximal femoral shaft fracture. The patient will be kept on bed rest. The patient will be provided with adequate pain control. Orthopedic Surgery recommending surgical intervention. 2. Essential hypertension. The patient will be maintained on antihypertensives including p.r.n. antihypertensives for any systolic blood pressure readings greater than 160 mmHg. 3. Type 2 diabetes mellitus. The patient will be continued on sliding scale insulin along with basal insulin and premeal insulin. 4. Dyslipidemia. The patient will be maintained on statins. Fasting lipid panel satisfactory. 5. 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 6. Osteoporosis. The patient will be maintained on vitamin D supplements. 7. Leukocytosis. Most probably reactive in origin. Will obtain a urinalysis on this patient. 8. Fluids, electrolytes, and nutrition. Carbohydrate controlled diet. 9. DVT prophylaxis. Subcutaneous Lovenox. 10. Gastrointestinal prophylaxis. Histamine 2 receptor blockers. Plan. Continue pain control. Await surgical intervention. Replete magnesium. Perioperative risk stratification: The patient has multiple comorbidities including essential hypertension, DM, and dyslipidemia. The patient has a underlying acute right hip fracture. Given the patient's comorbidities, she is at intermediate risk for untoward medical complications perioperatively. Nevertheless, the benefits would outweigh the risks of any surgical intervention for the acute right hip fracture. Case discussed with Dr. Hu. Problems: Subjective 24 Hr Interval Summary Free Text/Dictation The patient is S/P cardiac stress test today. Exam/Review of Systems Vital Signs Vitals Vital Signs Date Time Temp Pulse Resp B/P Pulse Ox O2 Delivery O2 Flow Rate FiO2 09/03/16 13:11 126 22 199/73 99 Nasal Cannula 4.0 09/03/16 07:37 98.8 Intake and Output 09/02/16 09/02/16 09/03/16 15:00 23:00 07:00 Intake Total 740 ml 720 ml Output Total 700 ml 500 ml Balance 40 ml 220 ml Exam GENERAL: This is a fragile looking 81-year-old female lying in bed in no apparent distress. HEENT: Head normocephalic and atraumatic. Eyes: Anicteric sclerae. Conjunctivae clear. ENT: Nasal septum is midline. Mucosa is dry. NECK: Supple. JVD noticed. RESPIRATORY: Bilaterally diminished breath sounds. No use of accessory muscles of respiration. No adventitious breath sounds. CARDIAC: S1, S2 heard. Regular rate and rhythm. GASTROINTESTINAL: Abdomen soft, nontender, nondistended. Bowel sounds positive in all 4 quadrants. GENITOURINARY: Deferred. EXTREMITIES: Right lower extremity externally rotated right hip joint. Tenderness to palpation of the right hip. Bilateral lower extremity pedal edema. Bilateral lower extremities, diminished peripheral pulses. NEUROLOGIC: The patient is awake, alert and oriented. Cranial nerves are grossly intact. Results Result Diagram: 09/03/16 0525 09/03/16 0525 Results 24 hrs Laboratory Tests Test 09/02/16 17:29 09/02/16 18:35 09/02/16 21:09 09/03/16 00:21 Bedside Glucose 110 129 Troponin I 0.068 0.075 Test 09/03/16 05:25 09/03/16 07:57 09/03/16 13:15 White Blood Count 12.4 H Red Blood Count 3.33 L Hemoglobin 9.9 L Hematocrit 31.3 L Mean Corpuscular Volume 94.0 Mean Corpuscular Hemoglobin 29.7 Mean Corpuscular Hemoglobin Concent 31.6 L Red Cell Distribution Width 13.0 Platelet Count 197 # Mean Platelet Volume 10.1 Neutrophils % 53.4 Lymphocytes % 36.3 Monocytes % 9.2 Eosinophils % 0.5 Basophils % 0.2 Nucleated Red Blood Cells % 0.0 Neutrophils # 6.6 Lymphocytes # 4.5 H Monocytes # 1.1 H Eosinophils # 0.1 Basophils # 0.0 Nucleated Red Blood Cells # 0.0 Sodium Level 142 Potassium Level 3.9 Chloride Level 106 Carbon Dioxide Level 24 Anion Gap 16 Blood Urea Nitrogen 15 Creatinine 0.78 Glucose Level 153 Calcium Level 8.3 L Phosphorus Level 4.6 Magnesium Level 1.2 L Troponin I 0.061 Triglycerides Level 109 Cholesterol Level 73 L LDL Cholesterol, Calculated 11 HDL Cholesterol 40 Cholesterol/HDL Ratio 1.8 Bedside Glucose 132 196 Medications Medications Current Medications Lorazepam (Ativan) 0.5 mg Q6H PRN IV ANXIETY Last administered on 09/03/16 11: 23; Admin Dose 0.5 MG; Start 09/02/16 at 10:00 Ondansetron HCl (Zofran Inj) 4 mg Q6H PRN IV NAUSEA AND/OR VOMITING; Start at 10:00 Acetaminophen (Tylenol Tab) 650 mg Q6H PRN PO PAIN LEVEL 1-3 OR FEVER; Start at 10:00 Magnesium Hydroxide (Milk Of Mag) 30 ml DAILY PRN PO CONSTIPATION; Start at 10:00 Bisacodyl (Dulcolax) 5 mg DAILY PRN PO CONSTIPATION; Start 09/02/16 at 10:00 Famotidine (Pepcid) 20 mg Q24H PO Last administered on 09/02/16 21:06; Admin Dose 20 MG; Start 09/02/16 at 21:00 Enoxaparin Sodium (Lovenox) 30 mg DAILY SC ; Start 09/03/16 at 09:00 Hydralazine HCl (Apresoline) 10 mg Q6H PRN IV SBP>160; Start 09/02/16 at 10:00 Amlodipine Besylate (Norvasc) 5 mg DAILY PO ; Start 09/03/16 at 09:00 Calcium Carbonate (Oyster Shell Calcium) 0.5 gm DAILY PO ; Start 09/03/16 at 09: 00 Docusate Sodium (Colace) 100 mg TID PO Last administered on 09/02/16 21:06; Admin Dose 100 MG; Start 09/02/16 at 13:00 EZETIMIBE (Zetia) 10 mg HS PO Last administered on 09/02/16 21:06; Admin Dose 10 MG; Start 09/02/16 at 21:00 Ferrous Sulfate (Ferrous Sulfate (Ec)) 325 mg DAILY PO ; Start 09/03/16 at 09:00 Metoprolol Succinate (Toprol Xl) 25 mg DAILY PO ; Start 09/03/16 at 09:00 Solifenacin (Vesicare) 5 mg DAILY PO ; Start 09/03/16 at 09:00 Losartan Potassium (Cozaar) 100 mg DAILY PO ; Start 09/03/16 at 09:00 Atorvastatin Calcium (Lipitor) 80 mg DAILY@21 PO Last administered on 21:06; Admin Dose 80 MG; Start 09/02/16 at 21:00 Cholecalciferol (Vitamin D) 1,000 unit DAILY PO ; Start 09/03/16 at 09:00 Insulin Glargine (Lantus) 15 unit DAILY@20 SC Last administered on 09/02/16 21 :27; Admin Dose 15 UNIT; Start 09/02/16 at 20:00 Miscellaneous Information 1 ea NOTE XX ; Start 09/02/16 at 10:30 Glucose (Glutose) 15 gm Q15M PRN PO DECREASED GLUCOSE; Start 09/02/16 at 10:30 Glucose (Glutose) 22.5 gm Q15M PRN PO DECREASED GLUCOSE; Start 09/02/16 at 10: 30 Dextrose (D50w Syringe) 25 ml Q15M PRN IV DECREASED GLUCOSE; Start 09/02/16 at 10:30 Dextrose (D50w Syringe) 50 ml Q15M PRN IV DECREASED GLUCOSE; Start 09/02/16 at 10:30 Glucagon (Glucagen) 1 mg Q15M PRN IM DECREASED GLUCOSE; Start 09/02/16 at 10:30 Glucose (Glutose) 15 gm Q15M PRN BUCCAL DECREASED GLUCOSE; Start 09/02/16 at 10 :30 Diagnostic Test (Pha) (Accu-Chek) 1 ea 02 XX ; Start 09/03/16 at 02:00 Morphine Sulfate (morphine) 4 mg Q4H PRN IV SEVERE PAIN LEVEL 7-10 Last administered on 09/03/16 13:08; Admin Dose 4 MG; Start 09/02/16 at 15:30 Morphine Sulfate (morphine) 4 mg Q4H PRN IV Pain; Start 09/02/16 at 15:30 Acetaminophen/ Hydrocodone Bitart ([place] (10/325)) 1 tab Q4H PRN PO PAIN Last administered on 09/02/16 22:33; Admin Dose 1 TAB; Start 09/02/16 at 20:30 Acetaminophen/ Hydrocodone Bitart ([place] (10/325)) 2 tab Q4H PRN PO PAIN Last administered on 09/03/16 10:04; Admin Dose 2 TAB; Start 09/03/16 at 04:00 CELY WHATLEY NP September 03, 2016 13:42
[2016-09-03 14:00] VITALS: BP 139/75; PULSE 110; RESP 18
--- NOTE | 2016-09-03 15:40 | RADRPT ---
Echocardiogram Report Patient Name: CYNTHIA RAMIREZ Gender: Female Date: 1935 Study Date: 03-Sep-2016 [employer] Professor: Michael Dale [facility] Location: [id number] Ref. Physician: RICHARDSON CANNON Quality: Good Procedures: Transthoracic echocardiogram with complete 2D, M-Mode, and doppler examination. Indications: Pre-op. 2D/M Mode Doppler Measurement Value Normal Ranges Measurement Value Normal Ranges LVIDd 2D 3.4 3.5 - 5.6 cm AV Peak Rebel 1.9 m/sec LVIDs 2D 2.2 2.1 - 4.1 cm AV Peak PG 15.0 mmHg FS 2D 34.7 % AI Peak PG 44.0 mmHg LVPWd 2D 0.8 0.6 - 1.1 cm AI Peak Rebel 3.3 m/sec IVSd 2D 0.8 0.6 - 1.1 cm AI PHT 361.0 msec IVS/LVPW 2D 1.0 LVOT Peak Rebel 1.1 m/sec AoR Diam 2D 2.5 2.0 - 3.7 cm LVOT Peak PG 4.0 mmHg LA/Ao 2D 1 0 - 1 TR Peak Rebel 2.6 m/sec EDV 2D 40.4 cm3 TR Peak PG 27.0 mmHg ESV 2D 11.2 cm3 RVSP 30.0 mmHg LA Dimen 2D 2.9 2.3 - 4.0 cm Findings Left Ventricle: Normal left ventricular systolic function. Normal left ventricular cavity size. Normal left ventricular wall thickness. Ejection fraction is visually estimated at 65 %. Tissue Doppler/Mitral Doppler indices are consistent with impaired relaxation (Stage I diastolic dysfunction). Right Ventricle: Normal right ventricular size. Normal right ventricular systolic function. Left Atrium: The left atrium is normal in size. Right Atrium: The right atrium is normal in size. Mitral Valve: Mitral valve leaflets appear mildly thickened. Mild mitral annular calcification. Trace mitral regurgitation. Aortic Valve: No hemodynamically significant aortic stenosis by doppler. Aortic cusps appear mildly calcified. Trace aortic valve regurgitation. Tricuspid Valve: Normal appearance of the tricuspid valve. Estimated peak PA systolic pressure 30 mmHg. There is trace tricuspid regurgitation. Pulmonic Valve: Normal pulmonic valve appearance. Pericardium: Normal pericardium with no significant pericardial effusion. Aorta: Normal aortic root. IVC: Normal size and normal respiratory collapse consistent with normal right atrial pressure. Conclusions Normal left ventricular systolic function. Normal left ventricular cavity size. Normal left ventricular wall thickness. Ejection fraction is visually estimated at 65 %. Tissue Doppler/Mitral Doppler indices are consistent with impaired relaxation (Stage I diastolic dysfunction). Normal right ventricular size. Normal right ventricular systolic function. No hemodynamically significant aortic stenosis by doppler. Aortic cusps appear mildly calcified. Trace aortic valve regurgitation. Mitral valve leaflets appear mildly thickened. Mild mitral annular calcification. Trace mitral regurgitation. Normal appearance of the tricuspid valve. Estimated peak PA systolic pressure 30 mmHg. There is trace tricuspid regurgitation. Normal pericardium with no significant pericardial effusion. Electronically Signed By: Richardson Cannon 03-Sep-2016 15:39:11 -0700 Patient Name: CYNTHIA RAMIREZ Study Date: 03-Sep-2016 [id number]
[2016-09-03] MEDS ORDERED: MAGNESIUM SULFATE 3 GM in SOD CHLORIDE 0.9% 100 ML IVPB ONE (16:00)
[2016-09-03 19:47] VITALS: BP 189/83; RESP 18
[2016-09-03 20:09] VITALS: BP 125/56; PULSE 107
[2016-09-03] MEDS: ATORVASTATIN 80 MG TAB PO SCH (20:17)
[2016-09-03] MEDS: EZETIMIBE 10 MG TAB PO SCH (20:17)
[2016-09-03] MEDS: FAMOTIDINE 20 MG TAB PO SCH (20:17)
[2016-09-03] MEDS: INSULIN GLARGINE [LANtus] 3 ML PEN SC SCH (20:22)
[2016-09-03] MEDS ORDERED: DEXTROSE 5%-0.45% NACL 1,000 ML IV SCH (22:00)
[2016-09-04] MEDS: morphine 4 MG/ML VIAL IV PRN ×3 (02:21→11:24)
[2016-09-04 04:00] VITALS: BP 131/64; PULSE 102
[2016-09-04 05:50] LABS: ADD SCAN DIFF NO
[2016-09-04 05:59] LABS: BASOPHILS % 0.3 % (0.0-2.0); EOSINOPHILS % 0.3 % (0.0-7.0); HEMATOCRIT 29.8 % (37.0-47.0); HEMOGLOBIN 9.7 g/dl (12.0-16.0); LYMPHOCYTES # 3.3 10^3/ul (0.8-2.9); MEAN CORPUSCULAR HEMOGLOBIN 29.9 pg (29.0-33.0); MEAN CORPUSCULAR HGB CONC 32.6 g/dl (32.0-37.0); MEAN PLATELET VOLUME 10.1 fl (7.4-10.4); MONOCYTE # 0.8 10^3/ul (0.3-0.9); MONOCYTES % 6.8 % (0.0-11.0); NEUTROPHIL # 7.6 10^3/ul (1.6-7.5); NEUTROPHILS % 64.3 % (39.0-77.0); PLATELET COUNT 182 10^3/UL (140-415); RED BLOOD COUNT 3.24 10^6/ul (4.20-5.40); RED CELL DISTRIBUTION WIDTH 12.9 % (11.5-14.5); WHITE BLOOD COUNT 11.9 10^3/ul (4.8-10.8)
[2016-09-04 06:05] LABS: POTASSIUM 3.6 mmol/L (3.5-5.1)
[2016-09-04 06:08] LABS: CALCIUM 8.5 mg/dl (8.4-10.2); CREATININE 0.78 mg/dl (0.44-1.00)
[2016-09-04 06:11] LABS: PHOSPHORUS 2.1 mg/dl (2.5-4.9)
--- NOTE | 2016-09-04 07:35 | PN ---
Date/Time of Note Date/Time of Note DATE: 09/04/16 TIME: 07:33 Assessment/Plan VTE Prophylaxis VTE Prophylaxis Intervention: LMWH Lines/Catheters IV Catheter Type (from Nrs): Peripheral IV Urinary Cath still in place: Yes Reason Cath still needed: other (indicate) Assessment/Plan Chief Complaint/Hosp Course 1. Status post mechanical fall with right femoral intratrochanteric and the proximal femoral shaft fracture. The patient will be kept on bed rest. The patient will be provided with adequate pain control. Orthopedic Surgery recommending surgical intervention. 2. Essential hypertension. The patient will be maintained on antihypertensives including p.r.n. antihypertensives for any systolic blood pressure readings greater than 160 mmHg. 3. Type 2 diabetes mellitus. The patient will be continued on sliding scale insulin along with basal insulin and premeal insulin. 4. Dyslipidemia. The patient will be maintained on statins. Fasting lipid panel satisfactory. 5. 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 6. Osteoporosis. The patient will be maintained on vitamin D supplements. 7. Leukocytosis. Most probably reactive in origin. Improving. 8. Fluids, electrolytes, and nutrition. Carbohydrate controlled diet. 9. DVT prophylaxis. Subcutaneous Lovenox. 10. Gastrointestinal prophylaxis. Histamine 2 receptor blockers. Plan. Continue pain control. Await surgical intervention. Replete phosphorous. Perioperative risk stratification: The patient has multiple comorbidities including essential hypertension, DM, and dyslipidemia. The patient has a underlying acute right hip fracture. Given the patient's comorbidities, she is at intermediate risk for untoward medical complications perioperatively. Nevertheless, the benefits would outweigh the risks of any surgical intervention for the acute right hip fracture. Case discussed with Dr. Hu. Problems: Subjective 24 Hr Interval Summary Free Text/Dictation Complains of right hip pain. Exam/Review of Systems Vital Signs Vitals Vital Signs Date Time Temp Pulse Resp B/P Pulse Ox O2 Delivery O2 Flow Rate FiO2 09/04/16 04:00 102 131/64 95 Nasal Cannula 3.0 09/03/16 19:47 97.3 18 Intake and Output 09/03/16 09/03/16 09/04/16 15:00 23:00 07:00 Intake Total 946 ml 600 ml Output Total 450 ml Balance 496 ml 600 ml Exam GENERAL: This is a fragile looking 81-year-old female lying in bed in no apparent distress. HEENT: Head normocephalic and atraumatic. Eyes: Anicteric sclerae. Conjunctivae clear. ENT: Nasal septum is midline. Mucosa is dry. NECK: Supple. JVD noticed. RESPIRATORY: Bilaterally diminished breath sounds. No use of accessory muscles of respiration. No adventitious breath sounds. CARDIAC: S1, S2 heard. Regular rate and rhythm. GASTROINTESTINAL: Abdomen soft, nontender, nondistended. Bowel sounds positive in all 4 quadrants. GENITOURINARY: Deferred. EXTREMITIES: Right lower extremity externally rotated right hip joint. Tenderness to palpation of the right hip. Bilateral lower extremity pedal edema. Bilateral lower extremities, diminished peripheral pulses. NEUROLOGIC: The patient is awake, alert and oriented. Cranial nerves are grossly intact. Results Result Diagram: 09/04/1652509/04/16525 Results 24 hrs Laboratory Tests Test 09/03/16 07:57 09/03/16 13:15 09/03/16 17:16 09/03/16 18:30 Bedside Glucose 132 196 208 Troponin I 0.041 Test 09/03/16 20:11 09/04/16 05:26 Bedside Glucose 118 White Blood Count 11.9 H Red Blood Count 3.24 L Hemoglobin 9.7 L Hematocrit 29.8 L Mean Corpuscular Volume 92.0 Mean Corpuscular Hemoglobin 29.9 Mean Corpuscular Hemoglobin Concent 32.6 Red Cell Distribution Width 12.9 Platelet Count 182 Mean Platelet Volume 10.1 Neutrophils % 64.3 Lymphocytes % 28.0 Monocytes % 6.8 Eosinophils % 0.3 Basophils % 0.3 Nucleated Red Blood Cells % 0.0 Neutrophils # 7.6 H Lymphocytes # 3.3 H Monocytes # 0.8 Eosinophils # 0.0 Basophils # 0.0 Nucleated Red Blood Cells # 0.0 Sodium Level 139 Potassium Level 3.6 Chloride Level 106 Carbon Dioxide Level 22 Anion Gap 15 Blood Urea Nitrogen 11 Creatinine 0.78 Glucose Level 221 H Calcium Level 8.5 Phosphorus Level 2.1 #L Magnesium Level 2.0 Medications Medications Current Medications Lorazepam (Ativan) 0.5 mg Q6H PRN IV ANXIETY Last administered on 09/03/16t 11: 23; Admin Dose 0.5 MG; Start 09/02/16 at 10:00 Ondansetron HCl (Zofran Inj) 4 mg Q6H PRN IV NAUSEA AND/OR VOMITING; Start at 10:00 Acetaminophen (Tylenol Tab) 650 mg Q6H PRN PO PAIN LEVEL 1-3 OR FEVER; Start at 10:00 Magnesium Hydroxide (Milk Of Mag) 30 ml DAILY PRN PO CONSTIPATION; Start at 10:00 Bisacodyl (Dulcolax) 5 mg DAILY PRN PO CONSTIPATION; Start 09/02/16 at 10:00 Famotidine (Pepcid) 20 mg Q24H PO Last administered on 09/03/16 20:17; Admin Dose 20 MG; Start 09/02/16 at 21:00 Enoxaparin Sodium (Lovenox) 30 mg DAILY SC ; Start 09/03/16 at 09:00 Hydralazine HCl (Apresoline) 10 mg Q6H PRN IV SBP>160; Start 09/02/16 at 10:00 Amlodipine Besylate (Norvasc) 5 mg DAILY PO ; Start 09/03/16 at 09:00 Calcium Carbonate (Oyster Shell Calcium) 0.5 gm DAILY PO ; Start 09/03/16 at 09: 00 Docusate Sodium (Colace) 100 mg TID PO Last administered on 09/03/16 20:17; Admin Dose 100 MG; Start 09/02/16 at 13:00 EZETIMIBE (Zetia) 10 mg HS PO Last administered on 09/03/16 20:17; Admin Dose 10 MG; Start 09/02/16 at 21:00 Ferrous Sulfate (Ferrous Sulfate (Ec)) 325 mg DAILY PO ; Start 09/03/16 at 09:00 Metoprolol Succinate (Toprol Xl) 25 mg DAILY PO ; Start 09/03/16 at 09:00 Solifenacin (Vesicare) 5 mg DAILY PO ; Start 09/03/16 at 09:00 Losartan Potassium (Cozaar) 100 mg DAILY PO ; Start 09/03/16 at 09:00 Atorvastatin Calcium (Lipitor) 80 mg DAILY@21 PO Last administered on 20:17; Admin Dose 80 MG; Start 09/02/16 at 21:00 Cholecalciferol (Vitamin D) 1,000 unit DAILY PO ; Start 09/03/16 at 09:00 Insulin Glargine (Lantus) 15 unit DAILY@20 SC Last administered on 09/03/16 20 :22; Admin Dose 15 UNIT; Start 09/02/16 at 20:00 Miscellaneous Information 1 ea NOTE XX ; Start 09/02/16 at 10:30 Glucose (Glutose) 15 gm Q15M PRN PO DECREASED GLUCOSE; Start 09/02/16 at 10:30 Glucose (Glutose) 22.5 gm Q15M PRN PO DECREASED GLUCOSE; Start 09/02/16 at 10: 30 Dextrose (D50w Syringe) 25 ml Q15M PRN IV DECREASED GLUCOSE; Start 09/02/16 at 10:30 Dextrose (D50w Syringe) 50 ml Q15M PRN IV DECREASED GLUCOSE; Start 09/02/16 at 10:30 Glucagon (Glucagen) 1 mg Q15M PRN IM DECREASED GLUCOSE; Start 09/02/16 at 10:30 Glucose (Glutose) 15 gm Q15M PRN BUCCAL DECREASED GLUCOSE; Start 09/02/16 at 10 :30 Diagnostic Test (Pha) (Accu-Chek) 1 ea 02 XX ; Start 09/03/16 at 02:00 Morphine Sulfate (morphine) 4 mg Q4H PRN IV SEVERE PAIN LEVEL 7-10 Last administered on 09/04/16 06:09; Admin Dose 4 MG; Start 09/02/16 at 15:30 Morphine Sulfate (morphine) 4 mg Q4H PRN IV Pain; Start 09/02/16 at 15:30 Acetaminophen/ Hydrocodone Bitart ([employer] (10/325)) 1 tab Q4H PRN PO PAIN Last administered on 09/02/16 22:33; Admin Dose 1 TAB; Start 09/02/16 at 20:30 Acetaminophen/ Hydrocodone Bitart 2 tab 2 tab Q4H PRN PO PAIN Last administered on 09/03/16 15:40; Admin Dose 2 TAB; Start 09/03/16 at 04:00 Dextrose/Sodium Chloride (D5-1/2ns) 1,000 ml @ 75 mls/hr [id number] IV Last administered on 09/03/16 22:05; Admin Dose 75 MLS/HR; Start 09/03/16 at 22:00 CELY WHATLEY NP September 04, 2016 07:35
[2016-09-04 07:52] VITALS: BP 180/74; RESP 19
[2016-09-04] MEDS: INSULIN ASPART [NOVOLOG] 3 ML PEN SC SCH ×7 (08:00→21:01)
--- NOTE | 2016-09-04 08:02 | CARRPT ---
DATE OF PROCEDURE: 09/02/2016 TYPE OF PROCEDURE: Lexiscan Cardiolite stress test, electrocardiogram portion. INDICATION: Preoperative evaluation, abnormal electrocardiogram, assess for ischemia. BASELINE VITAL SIGNS AND ELECTROCARDIOGRAM: Pulse of 94, blood pressure 118/84. Electrocardiogram reveals normal sinus rhythm at 94, normal axis, normal intervals, with nonspecific ST ____. PROCEDURE: The patient ____ over 10 seconds followed by radiolabeled tracer. The patient's test wa s stopped due to completion of protocol. Maximal achieved maximum heart rate during the test 131. Maximal blood pressure during the test 117/31. SYMPTOMS: The patient had no obvious chest pain or shortness of breath during stress testing. The patient is somewhat agitated, ____ throughout the test. ELECTROCARDIOGRAM FINDINGS: The patient did not develop any new Lexiscan-induced ST or T-wave chapman es from baseline abnormalities. Patient had occasional PVCs. IMPRESSION: 1. No Lexiscan-induced ST or T-wave changes from baseline abnormalities of diagnostic cardiac ische manish. 2. No complaints of chest pain or shortness of breath during stress test. 3. Single PVC contractions during stress testing. 4. Report of nuclear images to follow in separate dictation. Dictated By: AMANDA MCINTOSH/THOMAS Conf#: [id number] DID#: [id number] CC: ANGELA DURHAM MD;*EndCC*
[2016-09-04] MEDS ORDERED: morphine 4 MG/ML VIAL IV STA (09:11)
[2016-09-04] MEDS: AMLODIPINE 5 MG TAB PO SCH (09:24)
[2016-09-04] MEDS: LOSARTAN 50 MG TAB PO SCH (09:25)
[2016-09-04] MEDS: METOPROLOL (XL) 25 MG TAB PO SCH (09:26)
[2016-09-04] MEDS: CALCIUM CARBONATE 1.25 GM TAB PO SCH (09:29)
[2016-09-04] MEDS: CHOLECALCIFEROL 1,000 UNIT TAB PO SCH (09:29)
[2016-09-04] MEDS: SOLIFENACIN 5 MG TAB PO SCH (09:29)
[2016-09-04] MEDS: DOCUSATE SODIUM 100 MG CAP PO SCH ×3 (09:29→20:29)
[2016-09-04] MEDS: FERROUS SULFATE (EC) 325 MG TAB PO SCH (09:29)
[2016-09-04] MEDS ORDERED: POTASSIUM PHOSPHATE 15 MM in SOD CHLORIDE 0.9% 250 ML IVPB SCH (10:00)
[2016-09-04] MEDS: ENOXAPARIN 30 MG/0.3 ML SYG SC SCH (10:15)
[2016-09-04 10:36] VITALS: BP 201/89; PULSE 122; RESP 18
--- NOTE | 2016-09-04 10:51 | CONS ---
Date/Time of Note Date/Time of Note DATE: 09/04/16 TIME: 10:48 Assessment/Plan Assessment/Plan Additional Assessment/Plan 1.Pre-op-for Hiop fx - s/p STRES TEST - normal EF, no ischemia - OK to proceed with surgery 2. s/p fall-? mechanical - will monito now 3. H/O cad/NM - now with negative s tress test 4.HTN - very high - with pain, con't to adjus t Rx as needed 5.Dyslipidemia Consultation Date/Type/Reason Admit Date/Time September 02, 2016 at 08:37 Initial Consult Date Type of Consultation: Cardiology Referring Provider: ANGEAL DURHAM 24 HR Interval Summary Free Text/Dictation Negative stress test - OK to proceed with surgery - Rx pain and HTN ROS: No fever, no chills, no nausea, no vomiting, no diarrhea/constipation No recent weight changes No chest pain, no PND, no orthopnea No dizziness, blurred vision No thirst, no heat or cold intolerance Exam/Review of Systems Vital Signs Vitals Vital Signs Date Time Temp Pulse Resp B/P Pulse Ox O2 Delivery O2 Flow Rate FiO2 09/04/16 10:36 98.5 122 18 201/89 95 Nasal Cannula 2.0 Intake and Output 09/03/16 09/03/16 09/04/16 15:00 23:00 07:00 Intake Total 946 ml 600 ml Output Total 450 ml Balance 496 ml 600 ml Exam General: WN/WD/NAD, AOx 1-2 s/p pain meds HEENT: Unicetric/atraumatic/EOMI (does not follow commands) NECK: JVD elevated, no thyromegaly Lymph: no lymphadenopathy HEART: regular with no S3, II/ systolic murmur at apex LUNGS: Coarse sounds ABD: soft, NT, ND, +BS : Intact Neuro: non focal SKIN: chronic changes EXT: trace edema, hip FXR Results Result Diagram: 09/04/16 0526 09/04/16 0526 Results 24 hrs Laboratory Tests Test 09/03/16 13:15 09/03/16 17:16 09/03/16 18:30 09/03/16 20:11 Bedside Glucose 196 208 118 Troponin I 0.041 Test 09/04/16 05:26 09/04/16 07:51 White Blood Count 11.9 H Red Blood Count 3.24 L Hemoglobin 9.7 L Hematocrit 29.8 L Mean Corpuscular Volume 92.0 Mean Corpuscular Hemoglobin 29.9 Mean Corpuscular Hemoglobin Concent 32.6 Red Cell Distribution Width 12.9 Platelet Count 182 Mean Platelet Volume 10.1 Neutrophils % 64.3 Lymphocytes % 28.0 Monocytes % 6.8 Eosinophils % 0.3 Basophils % 0.3 Nucleated Red Blood Cells % 0.0 Neutrophils # 7.6 H Lymphocytes # 3.3 H Monocytes # 0.8 Eosinophils # 0.0 Basophils # 0.0 Nucleated Red Blood Cells # 0.0 Sodium Level 139 Potassium Level 3.6 Chloride Level 106 Carbon Dioxide Level 22 Anion Gap 15 Blood Urea Nitrogen 11 Creatinine 0.78 Glucose Level 221 H Calcium Level 8.5 Phosphorus Level 2.1 #L Magnesium Level 2.0 Bedside Glucose 212 Medications Medications Current Medications Lorazepam (Ativan) 0.5 mg Q6H PRN IV ANXIETY Last administered on 09/03/16 11: 23; Admin Dose 0.5 MG; Start 09/02/16 at 10:00 Ondansetron HCl (Zofran Inj) 4 mg Q6H PRN IV NAUSEA AND/OR VOMITING; Start at 10:00 Acetaminophen (Tylenol Tab) 650 mg Q6H PRN PO PAIN LEVEL 1-3 OR FEVER; Start at 10:00 Magnesium Hydroxide (Milk Of Mag) 30 ml DAILY PRN PO CONSTIPATION; Start at 10:00 Bisacodyl (Dulcolax) 5 mg DAILY PRN PO CONSTIPATION; Start 09/02/16 at 10:00 Famotidine (Pepcid) 20 mg Q24H PO Last administered on 09/03/16 20:17; Admin Dose 20 MG; Start 09/02/16 at 21:00 Enoxaparin Sodium (Lovenox) 30 mg DAILY SC Last administered on 09/04/16 10:15 ; Admin Dose 30 MG; Start 09/03/16 at 09:00 Hydralazine HCl (Apresoline) 10 mg Q6H PRN IV SBP>160 Last administered on 09/04 10:39; Admin Dose 10 MG; Start 09/02/16 at 10:00 Amlodipine Besylate (Norvasc) 5 mg DAILY PO Last administered on 09/04/16 09: 24; Admin Dose 5 MG; Start 09/03/16 at 09:00 Calcium Carbonate (Oyster Shell Calcium) 0.5 gm DAILY PO Last administered on 09:29; Admin Dose 0.5 GM; Start 09/03/16 at 09:00 Docusate Sodium (Colace) 100 mg TID PO Last administered on 09/04/16 09:29; Admin Dose 100 MG; Start 09/02/16 at 13:00 EZETIMIBE (Zetia) 10 mg HS PO Last administered on 09/03/16 20:17; Admin Dose 10 MG; Start 09/02/16 at 21:00 Ferrous Sulfate (Ferrous Sulfate (Ec)) 325 mg DAILY PO Last administered on 09:29; Admin Dose 325 MG; Start 09/03/16 at 09:00 Metoprolol Succinate (Toprol Xl) 25 mg DAILY PO Last administered on 09/04/16 09:26; Admin Dose 25 MG; Start 09/03/16 at 09:00 Solifenacin (Vesicare) 5 mg DAILY PO Last administered on 09/04/16 09:29; Admin Dose 5 MG; Start 09/03/16 at 09:00 Losartan Potassium (Cozaar) 100 mg DAILY PO Last administered on 09/04/16 09: 25; Admin Dose 100 MG; Start 09/03/16 at 09:00 Atorvastatin Calcium (Lipitor) 80 mg DAILY@21 PO Last administered on 20:17; Admin Dose 80 MG; Start 09/02/16 at 21:00 Cholecalciferol (Vitamin D) 1,000 unit DAILY PO Last administered on 09/04/16 09:29; Admin Dose 1,000 UNIT; Start 09/03/16 at 09:00 Insulin Glargine (Lantus) 15 unit DAILY@20 SC Last administered on 09/03/16 20 :22; Admin Dose 15 UNIT; Start 09/02/16 at 20:00 Miscellaneous Information 1 ea NOTE XX ; Start 09/02/16 at 10:30 Glucose (Glutose) 15 gm Q15M PRN PO DECREASED GLUCOSE; Start 09/02/16 at 10:30 Glucose (Glutose) 22.5 gm Q15M PRN PO DECREASED GLUCOSE; Start 09/02/16 at 10: 30 Dextrose (D50w Syringe) 25 ml Q15M PRN IV DECREASED GLUCOSE; Start 09/02/16 at 10:30 Dextrose (D50w Syringe) 50 ml Q15M PRN IV DECREASED GLUCOSE; Start 09/02/16 at 10:30 Glucagon (Glucagen) 1 mg Q15M PRN IM DECREASED GLUCOSE; Start 09/02/16 at 10:30 Glucose (Glutose) 15 gm Q15M PRN BUCCAL DECREASED GLUCOSE; Start 09/02/16 at 10 :30 Diagnostic Test (Pha) (Accu-Chek) 1 ea 02 XX ; Start 09/03/16 at 02:00 Morphine Sulfate (morphine) 4 mg Q4H PRN IV SEVERE PAIN LEVEL 7-10 Last administered on 09/04/16 06:09; Admin Dose 4 MG; Start 09/02/16 at 15:30 Morphine Sulfate (morphine) 4 mg Q4H PRN IV Pain; Start 09/02/16 at 15:30 Acetaminophen/ Hydrocodone Bitart ([place] (10/325)) 1 tab Q4H PRN PO PAIN Last administered on 09/02/16 22:33; Admin Dose 1 TAB; Start 09/02/16 at 20:30 Acetaminophen/ Hydrocodone Bitart 2 tab 2 tab Q4H PRN PO PAIN Last administered on 09/03/16 15:40; Admin Dose 2 TAB; Start 09/03/16 at 04:00 Dextrose/Sodium Chloride 1,000 ml @ 75 mls/hr [id number] IV Last administered on 09/03/16 22:05; Admin Dose 75 MLS/HR; Start 09/03/16 at 22:00 Potassium Phosphate/Sodium Chloride (K Phos (Mm)/NS) 255 ml @ 63.75 mls/ hr ONCE IVPB Last administered on 09/04/16 10:41; Admin Dose 63.75 MLS/HR; Start 09/04/16 at 10:00; Stop 09/04/16 at 13:59 SHAILESH SAINI MD September 04, 2016 10:51
[2016-09-04 10:59] VITALS: BP 147/64; PULSE 119; RESP 18
[2016-09-04] MEDS ORDERED: hydrALAzine 20 MG INJ IV PRN (11:30)
[2016-09-04] MEDS: NS + KCL 20 MEQ 1,000 ML IV SCH (13:18)
[2016-09-04] MEDS: LORAZEPAM 2 MG INJ IV PRN (14:31)
[2016-09-04 14:34] LABS: ADD UMIC YES; URINE BILIRUBIN (Dip) NEGATIVE (NEGATIVE); URINE BLOOD (Dip) 3+ (NEGATIVE); URINE COLOR LT. YELLOW (YELLOW); URINE GLUCOSE (Dip) NEGATIVE (NEGATIVE); URINE KETONES (Dip) 15 (NEGATIVE); URINE LEUKOCYTE ESTERASE (Dip) 3+ (NEGATIVE); URINE NITRITE (Dip) NEGATIVE (NEGATIVE); URINE TOTAL PROTEIN (Dip) 1+ (NEGATIVE); URINE UROBILINOGEN (Dip) 0.2 E.U./dL (0.1-1.0)
[2016-09-04] MEDS: HYDROmorphONE 1 MG/ML SYG IV PRN ×2 (14:46→20:20)
[2016-09-04 16:03] LABS: BACTERIA,URINE MANY; SQUAMOUS EPITHELIAL CELL,UR MODERATE
[2016-09-04 19:19] VITALS: BP 153/67; RESP 20
[2016-09-04] MEDS: ATORVASTATIN 80 MG TAB PO SCH (20:29)
[2016-09-04] MEDS: EZETIMIBE 10 MG TAB PO SCH (20:30)
[2016-09-04] MEDS: FAMOTIDINE 20 MG TAB PO SCH (20:30)
[2016-09-04] MEDS: INSULIN GLARGINE [LANtus] 3 ML PEN SC SCH (21:00)
[2016-09-05] VITALS (10 sets, daily range): BP systolic 101–157; BP diastolic 46–70; PULSE 92–108; RESP 18–46
[2016-09-05] MEDS: HYDROmorphONE 1 MG/ML SYG IV PRN (00:36)
[2016-09-05] MEDS: NS + KCL 20 MEQ 1,000 ML IV SCH ×2 (01:50→03:56)
[2016-09-05] MEDS: ACCUCHECK AT 2AM (Patients on SS coverage) XX SCH (02:33)
[2016-09-05] MEDS: LORAZEPAM 2 MG INJ IV PRN (06:38)
[2016-09-05] MEDS: DOCUSATE SODIUM 100 MG CAP PO SCH ×3 (08:10→20:48)
[2016-09-05] MEDS: LOSARTAN 50 MG TAB PO SCH (08:10)
[2016-09-05] MEDS: AMLODIPINE 5 MG TAB PO SCH (08:10)
[2016-09-05] MEDS: FERROUS SULFATE (EC) 325 MG TAB PO SCH (08:10)
[2016-09-05] MEDS: CALCIUM CARBONATE 1.25 GM TAB PO SCH (08:11)
[2016-09-05] MEDS: METOPROLOL (XL) 25 MG TAB PO SCH (08:11)
[2016-09-05] MEDS: CHOLECALCIFEROL 1,000 UNIT TAB PO SCH (08:11)
[2016-09-05] MEDS: SOLIFENACIN 5 MG TAB PO SCH (08:11)
[2016-09-05] MEDS: ENOXAPARIN 30 MG/0.3 ML SYG SC SCH (08:11)
[2016-09-05] MEDS: INSULIN ASPART [NOVOLOG] 3 ML PEN SC SCH ×7 (08:15→21:04)
[2016-09-05] MEDS ORDERED: HALOPERIDOL 5 MG INJ IM PRN (11:30)
[2016-09-05 11:55] LABS: ADD SCAN DIFF NO
[2016-09-05 12:04] LABS: BASOPHILS % 0.3 % (0.0-2.0); EOSINOPHILS % 0.2 % (0.0-7.0); HEMOGLOBIN 9.1 g/dl (12.0-16.0); LYMPHOCYTES % 18.9 % (15.0-51.0); MEAN CORPUSCULAR HEMOGLOBIN 30.5 pg (29.0-33.0); MEAN CORPUSCULAR HGB CONC 32.5 g/dl (32.0-37.0); MEAN PLATELET VOLUME 10.1 fl (7.4-10.4); MONOCYTE # 0.9 10^3/ul (0.3-0.9); MONOCYTES % 8.2 % (0.0-11.0); NEUTROPHIL # 7.8 10^3/ul (1.6-7.5); NEUTROPHILS % 71.9 % (39.0-77.0); PLATELET COUNT 206 10^3/UL (140-415); RED BLOOD COUNT 2.98 10^6/ul (4.20-5.40); RED CELL DISTRIBUTION WIDTH 12.9 % (11.5-14.5); WHITE BLOOD COUNT 10.8 10^3/ul (4.8-10.8)
[2016-09-05 12:24] LABS: MAGNESIUM 1.7 mg/dl (1.7-2.5); PHOSPHORUS 2.9 mg/dl (2.5-4.9)
[2016-09-05 12:25] LABS: CALCIUM 8.2 mg/dl (8.4-10.2); CREATININE 0.76 mg/dl (0.44-1.00); POTASSIUM 4.1 mmol/L (3.5-5.1)
[2016-09-05] MEDS ORDERED: POLYMYXIN/BACITRACIN 1L IRRIG ONE (13:38)
--- NOTE | 2016-09-05 14:29 | HPN ---
Date/Time of Note Date/Time of Note DATE: 09/05/16 TIME: 14:28 Interval H&P Admission Note Pt. seen H&P reviewed: No system changes KENNETH KWAN MD September 05, 2016 14:29
[2016-09-05] MEDS ORDERED: PROPOFOL 20 ML ONE (14:47)
[2016-09-05] MEDS ORDERED: LIDOCAINE 2% (SDV) 5 ML INJ ONE (14:47)
[2016-09-05] MEDS ORDERED: morphine SULFATE/PF (10 MG/10 ML) INJ ONE (14:48)
[2016-09-05] MEDS ORDERED: FENTAnyl 50 MCG/ML VIAL ONE (14:48)
[2016-09-05] MEDS ORDERED: PHENYLephrine (100 MCG/ML) 5ML SYG ONE (15:36)
--- NOTE | 2016-09-05 15:37 | CONS ---
Date/Time of Note Date/Time of Note DATE: 09/05/16 TIME: 15:32 Assessment/Plan Assessment/Plan Chief Complaint/Hosp Course Imp: 1.Pre-op-for Hip fx- No ischemia by lexiscan/NL EF. NO cardiac contraindication to proceeding to oR on current medications without further noninvasive evaluation at moderate risk. NL EF by echo and no sig valve abnl 2. s/p fall-? mechanical 3. H/O cad/NH 4.HTN 5.Dyslipidemia Recc: -Continue BB/ARB/CCB -Continue pain control -pnding surgery today Problems: Consultation Date/Type/Reason Admit Date/Time September 02, 2016 at 08:37 Initial Consult Date 09/02/2016 Type of Consultation: Cardiology Reason for Consultation HTN Referring Provider: ANGELA DURHAM Exam/Review of Systems Vital Signs Vitals Vital Signs Date Time Temp Pulse Resp B/P Pulse Ox O2 Delivery O2 Flow Rate FiO2 09/05/16 07:36 98.8 117 21 156/70 93 09/05/16 02:54 3.0 09/04/16 20:00 Nasal Cannula Intake and Output 09/04/16 09/04/16 09/05/16 15:00 23:00 07:00 Intake Total 915 ml 540 ml 920 ml Output Total 550 ml 300 ml 450 ml Balance 365 ml 240 ml 470 ml Exam Review of Systems: CONSTITUTIONAL: No fevers, chills. PULMONARY: No sob CARDIOVASCULAR: No chest pain/palpitations GASTROINTESTINAL: No nausea/vomiting. GENITOURINARY: No hematuria/dysuria. MUSCULOSKELETAL: No myagias/arthalgias. PSYCHIATRIC: The patient denies depression. NEUROLOGIC: No weakness Constitutional: alert Psych: no complaints Head: normocephalic ENMT: mucosa pink and moist Neck: jvd (9 cm water), supple Respiratory: diminished breath sounds (at bases/B) Cardiovascular: regular rate and rhythm Gastrointestinal: non-tender, soft Musculoskeletal: muscle tone (normakl) Extremities: edema (none) Neurological: other (No focal deficits) Results Result Diagram: 09/05/16 1150 09/05/16 1150 Results 24 hrs Laboratory Tests Test 09/04/16 17:20 09/04/16 20:26 09/05/16 02:26 09/05/16 08:05 Bedside Glucose 212 214 174 219 Test 09/05/16 11:50 09/05/16 12:19 White Blood Count 10.8 Red Blood Count 2.98 L Hemoglobin 9.1 L Hematocrit 28.0 L Mean Corpuscular Volume 94.0 Mean Corpuscular Hemoglobin 30.5 Mean Corpuscular Hemoglobin Concent 32.5 Red Cell Distribution Width 12.9 Platelet Count 206 Mean Platelet Volume 10.1 Neutrophils % 71.9 Lymphocytes % 18.9 Monocytes % 8.2 Eosinophils % 0.2 Basophils % 0.3 Nucleated Red Blood Cells % 0.0 Neutrophils # 7.8 H Lymphocytes # 2.0 Monocytes # 0.9 Eosinophils # 0.0 Basophils # 0.0 Nucleated Red Blood Cells # 0.0 Sodium Level 139 Potassium Level 4.1 Chloride Level 109 Carbon Dioxide Level 23 Anion Gap 11 Blood Urea Nitrogen 12 Creatinine 0.76 Glucose Level 180 Calcium Level 8.2 L Phosphorus Level 2.9 Magnesium Level 1.7 Bedside Glucose 176 Medications Medications Current Medications Lorazepam (Ativan) 0.5 mg Q6H PRN IV ANXIETY Last administered on 09/05/16 06: 38; Admin Dose 0.5 MG; Start 09/02/16 at 10:00 Ondansetron HCl (Zofran Inj) 4 mg Q6H PRN IV NAUSEA AND/OR VOMITING; Start at 10:00 Acetaminophen (Tylenol Tab) 650 mg Q6H PRN PO PAIN LEVEL 1-3 OR FEVER; Start at 10:00 Magnesium Hydroxide (Milk Of Mag) 30 ml DAILY PRN PO CONSTIPATION; Start at 10:00 Bisacodyl (Dulcolax) 5 mg DAILY PRN PO CONSTIPATION Last administered on 14:39; Admin Dose 5 MG; Start 09/02/16 at 10:00 Famotidine (Pepcid) 20 mg Q24H PO Last administered on 09/04/16 20:30; Admin Dose 20 MG; Start 09/02/16 at 21:00 Enoxaparin Sodium (Lovenox) 30 mg DAILY SC Last administered on 09/04/16 10:15 ; Admin Dose 30 MG; Start 09/03/16 at 09:00 Hydralazine HCl (Apresoline) 10 mg Q6H PRN IV SBP>160 Last administered on 09/04 10:39; Admin Dose 10 MG; Start 09/02/16 at 10:00 Amlodipine Besylate (Norvasc) 5 mg DAILY PO Last administered on 09/04/16 09: 24; Admin Dose 5 MG; Start 09/03/16 at 09:00 Calcium Carbonate (Oyster Shell Calcium) 0.5 gm DAILY PO Last administered on 09:29; Admin Dose 0.5 GM; Start 09/03/16 at 09:00 Docusate Sodium (Colace) 100 mg TID PO Last administered on 09/04/16 20:29; Admin Dose 100 MG; Start 09/02/16 at 13:00 EZETIMIBE (Zetia) 10 mg HS PO Last administered on 09/04/16 20:30; Admin Dose 10 MG; Start 09/02/16 at 21:00 Ferrous Sulfate (Ferrous Sulfate (Ec)) 325 mg DAILY PO Last administered on 09:29; Admin Dose 325 MG; Start 09/03/16 at 09:00 Metoprolol Succinate (Toprol Xl) 25 mg DAILY PO Last administered on 09/04/16 09:26; Admin Dose 25 MG; Start 09/03/16 at 09:00 Solifenacin (Vesicare) 5 mg DAILY PO Last administered on 09/04/16 09:29; Admin Dose 5 MG; Start 09/03/16 at 09:00 Losartan Potassium (Cozaar) 100 mg DAILY PO Last administered on 09/04/16 09: 25; Admin Dose 100 MG; Start 09/03/16 at 09:00 Atorvastatin Calcium (Lipitor) 80 mg DAILY@21 PO Last administered on 20:29; Admin Dose 80 MG; Start 09/02/16 at 21:00 Cholecalciferol (Vitamin D) 1,000 unit DAILY PO Last administered on 09/04/16 09:29; Admin Dose 1,000 UNIT; Start 09/03/16 at 09:00 Insulin Glargine (Lantus) 15 unit DAILY@20 SC Last administered on 09/04/16 21 :00; Admin Dose 15 UNIT; Start 09/02/16 at 20:00 Miscellaneous Information 1 ea NOTE XX ; Start 09/02/16 at 10:30 Glucose (Glutose) 15 gm Q15M PRN PO DECREASED GLUCOSE; Start 09/02/16 at 10:30 Glucose (Glutose) 22.5 gm Q15M PRN PO DECREASED GLUCOSE; Start 09/02/16 at 10: 30 Dextrose (D50w Syringe) 25 ml Q15M PRN IV DECREASED GLUCOSE; Start 09/02/16 at 10:30 Dextrose (D50w Syringe) 50 ml Q15M PRN IV DECREASED GLUCOSE; Start 09/02/16 at 10:30 Glucagon (Glucagen) 1 mg Q15M PRN IM DECREASED GLUCOSE; Start 09/02/16 at 10:30 Glucose (Glutose) 15 gm Q15M PRN BUCCAL DECREASED GLUCOSE; Start 09/02/16 at 10 :30 Diagnostic Test (Pha) (Accu-Chek) 1 ea 02 XX Last administered on 09/05/16 02: 33; Admin Dose 1 EA; Start 09/03/16 at 02:00 Acetaminophen/ Hydrocodone Bitart ([place] (10/325)) 1 tab Q4H PRN PO PAIN Last administered on 09/02/16 22:33; Admin Dose 1 TAB; Start 09/02/16 at 20:30 Acetaminophen/ Hydrocodone Bitart ([place] (10/325)) 2 tab Q4H PRN PO PAIN Last administered on 09/03/16 15:40; Admin Dose 2 TAB; Start 09/03/16 at 04:00 Hydralazine HCl (Apresoline) 10 mg Q4H PRN IV sbp > 160; Start 09/04/16 at 11: 30 Hydromorphone HCl 1 mg 1 mg Q4H PRN IV PAIN Last administered on 09/05/16 00: 36; Admin Dose 1 MG; Start 09/04/16 at 12:30 Potassium Chloride/Sodium Chloride (NS-KCl 20 Meq) 1,000 ml @ 75 mls/hr [id number] IV Last administered on 09/05/16 03:56; Admin Dose 75 MLS/HR; Start at 12:30 Haloperidol (Haldol) 5 mg Q8H PRN IM PSYCHOSIS; Start 09/05/16 at 11:30 AMANDA DICK September 05, 2016 15:37
[2016-09-05] MEDS ORDERED: CEFAZOLIN 1 GM INJ ONE (15:55)
[2016-09-05] MEDS ORDERED: hydrALAzine 20 MG INJ IV PRN (16:00)
[2016-09-05] MEDS ORDERED: HYDROmorphONE (0.2 MG/ML) 10ML SYG IV PRN (16:00)
[2016-09-05] MEDS ORDERED: PROCHLORPERAZINE 10 MG INJ IV PRN (16:00)
[2016-09-05] MEDS ORDERED: MEPERIDINE 25 MG INJ IV PRN (16:00)
[2016-09-05] MEDS ORDERED: ONDANSETRON 4 MG INJ IV PRN (16:00)
[2016-09-05] MEDS ORDERED: FENTAnyl 50 MCG/ML VIAL IV PRN (16:00)
[2016-09-05] MEDS ORDERED: LABETALOL HCL 20MG INJ IV PRN (16:00)
[2016-09-05] MEDS ORDERED: POLYMYXIN/BACITRACIN 1L IRRIG IRR ONE (16:03)
--- NOTE | 2016-09-05 16:03 | PN ---
Date/Time of Note Date/Time of Note DATE: 09/05/16 TIME: 15:58, Patient was evaluate at 10 am Assessment/Plan VTE Prophylaxis VTE Prophylaxis Intervention: heparin Lines/Catheters IV Catheter Type (from Nrsg): Peripheral IV Urinary Cath still in place: No (patient pulled out valles) Reason Cath still needed: other (indicate) Assessment/Plan Assessment/Plan 1. Status post mechanical fall with right femoral intratrochanteric and the proximal femoral shaft fracture. The patient will be kept on bed rest. The patient will be provided with adequate pain control. Orthopedic Surgery recommending surgical intervention. 2. Essential hypertension. The patient will be maintained on antihypertensives including p.r.n. antihypertensives for any systolic blood pressure readings greater than 160 mmHg. 3. Type 2 diabetes mellitus. The patient will be continued on sliding scale insulin along with basal insulin and premeal insulin. 4. Dyslipidemia. The patient will be maintained on statins. Fasting lipid panel satisfactory. 5. 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 6. Osteoporosis. The patient will be maintained on vitamin D supplements. 7. Leukocytosis. Most probably reactive in origin. Improving. 8. Fluids, electrolytes, and nutrition. Carbohydrate controlled diet. 9. DVT prophylaxis. Subcutaneous Lovenox. 10. Gastrointestinal prophylaxis. Histamine 2 receptor blockers. Plan. Continue pain control. Await surgical intervention Subjective 24 Hr Interval Summary Free Text/Dictation * patient belligerent and ?confused. * Had pulled out valles with balloon yesterday * refuses nurses to even touch her * Son at bedside, gave consent for haldol Exam/Review of Systems Vital Signs Vitals Vital Signs Date Time Temp Pulse Resp B/P Pulse Ox O2 Delivery O2 Flow Rate FiO2 09/05/16 07:36 98.8 117 21 156/70 93 09/05/16 02:54 3.0 09/04/16 20:00 Nasal Cannula Intake and Output 09/04/16 09/04/16 09/05/16 15:00 23:00 07:00 Intake Total 915 ml 540 ml 920 ml Output Total 550 ml 300 ml 450 ml Balance 365 ml 240 ml 470 ml Exam Constitutional: alert, obese Psych: confusion Head: normocephalic Eyes: PERRL ENMT: mucosa pink and moist Neck: supple Respiratory: diminished breath sounds Cardiovascular: regular rate and rhythm, No murmurs/extra sounds Gastrointestinal: bowel sounds, non-tender, soft Musculoskeletal: No range of motion Extremities: No edema Neurological: confused Results Result Diagram: 09/05/16 1150 09/05/16 1150 Results 24 hrs Laboratory Tests Test 09/04/16 17:20 09/04/16 20:26 09/05/16 02:26 09/05/16 08:05 Bedside Glucose 212 214 174 219 Test 09/05/16 11:50 09/05/16 12:19 White Blood Count 10.8 Red Blood Count 2.98 L Hemoglobin 9.1 L Hematocrit 28.0 L Mean Corpuscular Volume 94.0 Mean Corpuscular Hemoglobin 30.5 Mean Corpuscular Hemoglobin Concent 32.5 Red Cell Distribution Width 12.9 Platelet Count 206 Mean Platelet Volume 10.1 Neutrophils % 71.9 Lymphocytes % 18.9 Monocytes % 8.2 Eosinophils % 0.2 Basophils % 0.3 Nucleated Red Blood Cells % 0.0 Neutrophils # 7.8 H Lymphocytes # 2.0 Monocytes # 0.9 Eosinophils # 0.0 Basophils # 0.0 Nucleated Red Blood Cells # 0.0 Sodium Level 139 Potassium Level 4.1 Chloride Level 109 Carbon Dioxide Level 23 Anion Gap 11 Blood Urea Nitrogen 12 Creatinine 0.76 Glucose Level 180 Calcium Level 8.2 L Phosphorus Level 2.9 Magnesium Level 1.7 Bedside Glucose 176 Medications Medications Current Medications Lorazepam (Ativan) 0.5 mg Q6H PRN IV ANXIETY Last administered on 09/05/16 06: 38; Admin Dose 0.5 MG; Start 09/02/16 at 10:00 Ondansetron HCl (Zofran Inj) 4 mg Q6H PRN IV NAUSEA AND/OR VOMITING; Start at 10:00 Acetaminophen (Tylenol Tab) 650 mg Q6H PRN PO PAIN LEVEL 1-3 OR FEVER; Start at 10:00 Magnesium Hydroxide (Milk Of Mag) 30 ml DAILY PRN PO CONSTIPATION; Start at 10:00 Bisacodyl (Dulcolax) 5 mg DAILY PRN PO CONSTIPATION Last administered on 14:39; Admin Dose 5 MG; Start 09/02/16 at 10:00 Famotidine (Pepcid) 20 mg Q24H PO Last administered on 09/04/16 20:30; Admin Dose 20 MG; Start 09/02/16 at 21:00 Enoxaparin Sodium (Lovenox) 30 mg DAILY SC Last administered on 09/04/16 10:15 ; Admin Dose 30 MG; Start 09/03/16 at 09:00 Hydralazine HCl (Apresoline) 10 mg Q6H PRN IV SBP>160 Last administered on 09/04 10:39; Admin Dose 10 MG; Start 09/02/16 at 10:00 Amlodipine Besylate (Norvasc) 5 mg DAILY PO Last administered on 09/04/16 09: 24; Admin Dose 5 MG; Start 09/03/16 at 09:00 Calcium Carbonate (Oyster Shell Calcium) 0.5 gm DAILY PO Last administered on 09:29; Admin Dose 0.5 GM; Start 09/03/16 at 09:00 Docusate Sodium (Colace) 100 mg TID PO Last administered on 09/04/16 20:29; Admin Dose 100 MG; Start 09/02/16 at 13:00 EZETIMIBE (Zetia) 10 mg HS PO Last administered on 09/04/16 20:30; Admin Dose 10 MG; Start 09/02/16 at 21:00 Ferrous Sulfate (Ferrous Sulfate (Ec)) 325 mg DAILY PO Last administered on 09:29; Admin Dose 325 MG; Start 09/03/16 at 09:00 Metoprolol Succinate (Toprol Xl) 25 mg DAILY PO Last administered on 09/04/16 09:26; Admin Dose 25 MG; Start 09/03/16 at 09:00 Solifenacin (Vesicare) 5 mg DAILY PO Last administered on 09/04/16 09:29; Admin Dose 5 MG; Start 09/03/16 at 09:00 Losartan Potassium (Cozaar) 100 mg DAILY PO Last administered on 09/04/16 09: 25; Admin Dose 100 MG; Start 09/03/16 at 09:00 Atorvastatin Calcium (Lipitor) 80 mg DAILY@21 PO Last administered on 20:29; Admin Dose 80 MG; Start 09/02/16 at 21:00 Cholecalciferol (Vitamin D) 1,000 unit DAILY PO Last administered on 09/04/16 09:29; Admin Dose 1,000 UNIT; Start 09/03/16 at 09:00 Insulin Glargine (Lantus) 15 unit DAILY@20 SC Last administered on 09/04/16 21 :00; Admin Dose 15 UNIT; Start 09/02/16 at 20:00 Miscellaneous Information 1 ea NOTE XX ; Start 09/02/16 at 10:30 Glucose (Glutose) 15 gm Q15M PRN PO DECREASED GLUCOSE; Start 09/02/16 at 10:30 Glucose (Glutose) 22.5 gm Q15M PRN PO DECREASED GLUCOSE; Start 09/02/16 at 10: 30 Dextrose (D50w Syringe) 25 ml Q15M PRN IV DECREASED GLUCOSE; Start 09/02/16 at 10:30 Dextrose (D50w Syringe) 50 ml Q15M PRN IV DECREASED GLUCOSE; Start 09/02/16 at 10:30 Glucagon (Glucagen) 1 mg Q15M PRN IM DECREASED GLUCOSE; Start 09/02/16 at 10:30 Glucose (Glutose) 15 gm Q15M PRN BUCCAL DECREASED GLUCOSE; Start 09/02/16 at 10 :30 Diagnostic Test (Pha) (Accu-Chek) 1 ea 02 XX Last administered on 09/05/16 02: 33; Admin Dose 1 EA; Start 09/03/16 at 02:00 Acetaminophen/ Hydrocodone Bitart ([place] (10/325)) 1 tab Q4H PRN PO PAIN Last administered on 09/02/16 22:33; Admin Dose 1 TAB; Start 09/02/16 at 20:30 Acetaminophen/ Hydrocodone Bitart ([place] (10/325)) 2 tab Q4H PRN PO PAIN Last administered on 09/03/16 15:40; Admin Dose 2 TAB; Start 09/03/16 at 04:00 Hydralazine HCl (Apresoline) 10 mg Q4H PRN IV sbp > 160; Start 09/04/16 at 11: 30 Hydromorphone HCl 1 mg 1 mg Q4H PRN IV PAIN Last administered on 09/05/16 00: 36; Admin Dose 1 MG; Start 09/04/16 at 12:30 Potassium Chloride/Sodium Chloride (NS-KCl 20 Meq) 1,000 ml @ 75 mls/hr [id number] IV Last administered on 09/05/16 03:56; Admin Dose 75 MLS/HR; Start at 12:30 Haloperidol (Haldol) 5 mg Q8H PRN IM PSYCHOSIS; Start 09/05/16 at 11:30 Procedures Procedures PROCEDURE: Right hip. CLINICAL INDICATION: Pain. TECHNIQUE: Two views of the right hip were obtained. COMPARISON: 01/19/2015. FINDINGS: There is comminuted fractures of the right proximal humerus involving in the intertrochanteric region. There is a mildly displaced fracture of the right lesser trochanter. There is no dislocation. There is mild narrowing of the right hip joint space. Bone mineralization is within normal limits. There is no radiopaque foreign body or abnormal calcification. IMPRESSION: Comminuted right intertrochanteric and proximal femoral shaft fractures. .Judson Burr MD, MD Date Time Electronically viewed and signed by .Judson Burr MD, on 09/02/2016 06:12 .T/ CC: SOWMYA MODI DO PROCEDURE: Lexiscan myocardial perfusion study CLINICAL INDICATION: 81 -year-old patient complaining of chest pain. TECHNIQUE: Lexiscan 0.4 mg intravenously separate acquisition gated myocardial perfusion SPECT using Tc 99m Myoview 30.2 mCi intravenously at stress and Tc-99m Myoview, 10.0 mCi intravenously at rest was performed using the rest/stress sequence. Poststress Myoview SPECT images were obtained in the supine position. COMPARISON: No prior studies. FINDINGS: Perfusion images reveal no evidence of perfusion defects. Lexiscan post stress gated SPECT images demonstrate no wall motion abnormalities. IMPRESSION: 1. Normal study with no evidence of perfusion defects or wall motion abnormalities. 2. The left ventricle ejection fraction at stress is greater than 70%. A call report was made to Dr. Metzger at 01:15 p.m. on September 03, 2016 RPTAT: HH .Stephanie Marin MD, MD Date Time Electronically viewed and signed by .Stephanie Marin MD, MD on 09/03/2016 13:16 .L/ PROCEDURE: Lexiscan myocardial perfusion study CLINICAL INDICATION: 81 -year-old patient complaining of chest pain. TECHNIQUE: Lexiscan 0.4 mg intravenously separate acquisition gated myocardial perfusion SPECT using Tc 99m Myoview 30.2 mCi intravenously at stress and Tc-99m Myoview, 10.0 mCi intravenously at rest was performed using the rest/stress sequence. Poststress Myoview SPECT images were obtained in the supine position. COMPARISON: No prior studies. FINDINGS: Perfusion images reveal no evidence of perfusion defects. Lexiscan post stress gated SPECT images demonstrate no wall motion abnormalities. IMPRESSION: 1. Normal study with no evidence of perfusion defects or wall motion abnormalities. 2. The left ventricle ejection fraction at stress is greater than 70%. A call report was made to Dr. Metzger at 01:15 p.m. on September 03, 2016 RPTAT: HH .Stephanie Marin MD, MD Date Time Electronically viewed and signed by .Stephanie Marin MD, on 09/03/2016 13:16 .ANGELA TONY September 05, 2016 16:03
[2016-09-05] MEDS ORDERED: LABETALOL HCL 20MG INJ ONE (16:08)
[2016-09-05 16:10] LABS: WHITE BLOOD COUNT 14.1 10^3/ul (4.8-10.8)
[2016-09-05] MEDS ORDERED: FAMOTIDINE 20 MG INJ ONE (16:21)
[2016-09-05] MEDS ORDERED: ONDANSETRON 4 MG INJ ONE (16:21)
[2016-09-05] MEDS ORDERED: NACL 0.9% 3 ML SYG IV SCH (17:30)
[2016-09-05] MEDS ORDERED: HYDROCODONE/APAP (5/325) TAB PO PRN (17:30)
[2016-09-05] MEDS ORDERED: INSULIN ASPART [NOVOLOG] 3 ML PEN SC ONE (17:30)
[2016-09-05] MEDS ORDERED: morphine 2 MG INJ IV PRN (17:30)
[2016-09-05 17:51] LABS: ADD SCAN DIFF NO
[2016-09-05 17:52] LABS: BASOPHILS % 0.2 % (0.0-2.0); EOSINOPHILS # 0.1 10^3/ul (0.0-0.5); EOSINOPHILS % 0.4 % (0.0-7.0); HEMATOCRIT 24.7 % (37.0-47.0); HEMOGLOBIN 7.9 g/dl (12.0-16.0); LYMPHOCYTES # 2.5 10^3/ul (0.8-2.9); LYMPHOCYTES % 20.3 % (15.0-51.0); MEAN CORPUSCULAR HEMOGLOBIN 30.6 pg (29.0-33.0); MEAN CORPUSCULAR VOLUME 95.7 fl (82.0-101.0); MEAN PLATELET VOLUME 10.1 fl (7.4-10.4); NEUTROPHIL # 8.8 10^3/ul (1.6-7.5); NEUTROPHILS % 70.5 % (39.0-77.0); PLATELET COUNT 215 10^3/UL (140-415); RED BLOOD COUNT 2.58 10^6/ul (4.20-5.40); WHITE BLOOD COUNT 12.5 10^3/ul (4.8-10.8)
--- NOTE | 2016-09-05 18:15 | RADRPT ---
PROCEDURE: XR Hip. CLINICAL INDICATION: Internal metallic fixation of fracture of the right hip. TECHNIQUE: Single frontal view of the right hip.. COMPARISON: None. FINDINGS: To and IM bob fixation at the proximal right femur status post comminuted subtrochanteric fracture. Post surgical air and fluid over the right hip. IMPRESSION: No evident hardware complication. RPTAT: [facility] Physician Sheron Date Time Electronically viewed and signed by Physician Sheron on 09/05/2016 18:15 RS/
[2016-09-05] MEDS: CEFAZOLIN 1 GM/50 ML (PMX) 50 ML IVPB SCH (20:10)
[2016-09-05] MEDS: DEXTROSE 5%-LR 1,000 ML IV SCH (20:11)
[2016-09-05] MEDS: INSULIN GLARGINE [LANtus] 3 ML PEN SC SCH (20:20)
[2016-09-05] MEDS: FAMOTIDINE 20 MG TAB PO SCH (20:48)
[2016-09-05] MEDS: ATORVASTATIN 80 MG TAB PO SCH (20:48)
[2016-09-05] MEDS: EZETIMIBE 10 MG TAB PO SCH (20:48)
[2016-09-06] VITALS (12 sets, daily range): BP systolic 111–148; BP diastolic 55–77; PULSE 101–114; RESP 16–20
[2016-09-06] MEDS: CEFAZOLIN 1 GM/50 ML (PMX) 50 ML IVPB SCH ×2 (01:50→09:03)
[2016-09-06] MEDS: ACCUCHECK AT 2AM (Patients on SS coverage) XX SCH (01:54)
[2016-09-06] MEDS: NS + KCL 20 MEQ 1,000 ML IV SCH ×2 (04:30→17:45)
[2016-09-06] MEDS: DEXTROSE 5%-LR 1,000 ML IV SCH (05:35)
[2016-09-06 05:40] LABS: ADD SCAN DIFF NO
[2016-09-06 05:55] LABS: ABNORMAL IP MESSAGE 1; BASOPHILS % 0.1 % (0.0-2.0); EOSINOPHILS # 0.1 10^3/ul (0.0-0.5); EOSINOPHILS % 0.6 % (0.0-7.0); HEMATOCRIT 21.3 % (37.0-47.0); LYMPHOCYTES # 1.7 10^3/ul (0.8-2.9); LYMPHOCYTES % 19.4 % (15.0-51.0); MEAN CORPUSCULAR HEMOGLOBIN 30.4 pg (29.0-33.0); MEAN CORPUSCULAR HGB CONC 32.4 g/dl (32.0-37.0); MEAN CORPUSCULAR VOLUME 93.8 fl (82.0-101.0); MEAN PLATELET VOLUME 10.3 fl (7.4-10.4); MONOCYTE # 0.8 10^3/ul (0.3-0.9); NEUTROPHIL # 6.1 10^3/ul (1.6-7.5); NEUTROPHILS % 70.4 % (39.0-77.0); PLATELET COUNT 203 10^3/UL (140-415); RED BLOOD COUNT 2.27 10^6/ul (4.20-5.40); RED CELL DISTRIBUTION WIDTH 13.1 % (11.5-14.5); WHITE BLOOD COUNT 8.7 10^3/ul (4.8-10.8)
[2016-09-06 06:04] LABS: HEMOGLOBIN 6.9 g/dl (12.0-16.0)
[2016-09-06 06:18] LABS: INR 1.42; PROTIME 17.4 Sec (12.2-14.2); PT RATIO 1.4
[2016-09-06 06:32] LABS: ALBUMIN 2.6 g/dl (3.3-4.9)
[2016-09-06 06:33] LABS: POTASSIUM 3.7 mmol/L (3.5-5.1)
[2016-09-06 06:35] LABS: ALBUMIN/GLOBULIN RATIO 0.86; BILIRUBIN,INDIRECT 0.4 mg/dl (0-1.1); BILIRUBIN,TOTAL 0.4 mg/dl (0.2-1.3); CALCIUM 7.8 mg/dl (8.4-10.2); CREATININE 0.81 mg/dl (0.44-1.00); MAGNESIUM 1.6 mg/dl (1.7-2.5); TOTAL PROTEIN 5.6 g/dl (6.1-8.1)
[2016-09-06] MEDS: ENOXAPARIN 30 MG/0.3 ML SYG SC SCH (07:45)
[2016-09-06] MEDS ORDERED: ENOXAPARIN 30 MG/0.3 ML SYG SC ONE (08:00)
[2016-09-06] MEDS: SOLIFENACIN 5 MG TAB PO SCH (09:01)
[2016-09-06] MEDS: FERROUS SULFATE (EC) 325 MG TAB PO SCH (09:01)
[2016-09-06] MEDS: CHOLECALCIFEROL 1,000 UNIT TAB PO SCH (09:02)
[2016-09-06] MEDS: DOCUSATE SODIUM 100 MG CAP PO SCH ×3 (09:02→21:01)
[2016-09-06] MEDS: METOPROLOL (XL) 25 MG TAB PO SCH (09:02)
[2016-09-06] MEDS: CALCIUM CARBONATE 1.25 GM TAB PO SCH (09:02)
[2016-09-06] MEDS: AMLODIPINE 5 MG TAB PO SCH (09:03)
[2016-09-06] MEDS: LOSARTAN 50 MG TAB PO SCH (09:03)
[2016-09-06] MEDS: INSULIN ASPART [NOVOLOG] 3 ML PEN SC SCH ×7 (09:10→21:00)
--- NOTE | 2016-09-06 10:06 | PN ---
Date/Time of Note Date/Time of Note DATE: 09/06/16 TIME: 09:56 Assessment/Plan VTE Prophylaxis VTE Prophylaxis Intervention: LMWH Lines/Catheters IV Catheter Type (from [facility], [place]): Peripheral IV Urinary Cath still in place: No (patient pulled out valles) Assessment/Plan Assessment/Plan 1. Status post mechanical fall with right femoral intratrochanteric and the proximal femoral shaft fracture. * Patient is status post surgical repair September 05, 2016 /now a routine postop care. 2. Essential hypertension. The patient will be maintained on antihypertensives including p.r.n. antihypertensives for any systolic blood pressure readings greater than 160 mmHg. 3. Type 2 diabetes mellitus. The patient will be continued on sliding scale insulin along with basal insulin and premeal insulin. 4. Dyslipidemia. The patient will be maintained on statins. Fasting lipid panel satisfactory. 5. 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 6. Osteoporosis. The patient will be maintained on vitamin D supplements. 7. Leukocytosis. Most probably reactive in origin. Improving. 8. Fluids, electrolytes, and nutrition. Carbohydrate controlled diet. 9. DVT prophylaxis. Subcutaneous Lovenox. 10. Gastrointestinal prophylaxis. Histamine 2 receptor blockers. Plan. Continue pain control. Continue supportive care. Physical therapy and ambulation per Ortho. Patient will likely need halfway facility versus acute rehab. Subjective 24 Hr Interval Summary Free Text/Dictation Patient quite calm today, alert. Complains of pain at surgical site. Exam/Review of Systems Vital Signs Vitals Vital Signs Date Time Temp Pulse Resp B/P Pulse Ox O2 Delivery O2 Flow Rate FiO2 09/06/16 07:50 99.1 113 18 130/62 92 09/06/16 06:00 Room Air 09/05/16 17:32 2.0 Intake and Output 09/05/16 09/05/16 09/06/16 15:00 23:00 07:00 Intake Total 675 ml 1550 ml 690 ml Output Total 325 ml 600 ml Balance 675 ml 1225 ml 90 ml Exam Constitutional: other (Lethargic), No distress Head: atraumatic, normocephalic Eyes: PERRL, No icteric ENMT: mucosa pink and moist Neck: non-tender, supple Respiratory: clear to auscultation, No labored breathing Cardiovascular: regular rate and rhythm, No murmurs/extra sounds Gastrointestinal: bowel sounds, non-tender, soft Extremities: No edema Neurological: lethargic, No focal weakness Results Result Diagram: 09/06/1651609/06/16 0517 Results 24 hrs Laboratory Tests Test 09/05/16 11:50 09/05/16 12:19 09/05/16 17:21 09/05/16 17:40 White Blood Count 10.8 12.5 H Red Blood Count 2.98 L 2.58 L Hemoglobin 9.1 L 7.9 L Hematocrit 28.0 L 24.7 L Mean Corpuscular Volume 94.0 95.7 Mean Corpuscular Hemoglobin 30.5 30.6 Mean Corpuscular Hemoglobin Concent 32.5 32.0 Red Cell Distribution Width 12.9 13.0 Platelet Count 206 215 Mean Platelet Volume 10.1 10.1 Neutrophils % 71.9 70.5 Lymphocytes % 18.9 20.3 Monocytes % 8.2 8.0 Eosinophils % 0.2 0.4 Basophils % 0.3 0.2 Nucleated Red Blood Cells % 0.0 0.0 Neutrophils # 7.8 H 8.8 H Lymphocytes # 2.0 2.5 Monocytes # 0.9 1.0 H Eosinophils # 0.0 0.1 Basophils # 0.0 0.0 Nucleated Red Blood Cells # 0.0 0.0 Sodium Level 139 Potassium Level 4.1 Chloride Level 109 Carbon Dioxide Level 23 Anion Gap 11 Blood Urea Nitrogen 12 Creatinine 0.76 Glucose Level 180 Calcium Level 8.2 L Phosphorus Level 2.9 Magnesium Level 1.7 Bedside Glucose 176 218 Test 09/05/16 20:14 09/06/16 01:53 09/06/16 05:17 09/06/16 08:05 Bedside Glucose 224 H 218 260 H White Blood Count 8.7 # Red Blood Count 2.27 L Hemoglobin 6.9 *L Hematocrit 21.3 L Mean Corpuscular Volume 93.8 Mean Corpuscular Hemoglobin 30.4 Mean Corpuscular Hemoglobin Concent 32.4 Red Cell Distribution Width 13.1 Platelet Count 203 Mean Platelet Volume 10.3 Neutrophils % 70.4 Lymphocytes % 19.4 Monocytes % 9.0 Eosinophils % 0.6 Basophils % 0.1 Nucleated Red Blood Cells % 0.0 Neutrophils # 6.1 Lymphocytes # 1.7 Monocytes # 0.8 Eosinophils # 0.1 Basophils # 0.0 Nucleated Red Blood Cells # 0.0 Prothrombin Time 17.4 #H Prothrombin Time Ratio 1.4 INR International Normalized Ratio 1.42 Sodium Level 142 Potassium Level 3.7 Chloride Level 108 Carbon Dioxide Level 24 Anion Gap 14 Blood Urea Nitrogen 14 Creatinine 0.81 Glucose Level 227 H Calcium Level 7.8 L Magnesium Level 1.6 L Total Bilirubin 0.4 Direct Bilirubin 0.00 Indirect Bilirubin 0.4 Aspartate Amino Transf (AST/SGOT) 30 Alanine Aminotransferase (ALT/SGPT) 29 Alkaline Phosphatase 39 L Total Protein 5.6 L Albumin 2.6 L Globulin 3.00 Albumin/Globulin Ratio 0.86 Test 09/06/16 09:00 Bedside Glucose 339 H Medications Medications Current Medications Lorazepam (Ativan) 0.5 mg Q6H PRN IV ANXIETY Last administered on 09/05/16 06: 38; Admin Dose 0.5 MG; Start 09/02/16 at 10:00 Ondansetron HCl (Zofran Inj) 4 mg Q6H PRN IV NAUSEA AND/OR VOMITING; Start at 10:00 Acetaminophen (Tylenol Tab) 650 mg Q6H PRN PO PAIN LEVEL 1-3 OR FEVER; Start at 10:00 Magnesium Hydroxide (Milk Of Mag) 30 ml DAILY PRN PO CONSTIPATION; Start at 10:00 Bisacodyl (Dulcolax) 5 mg DAILY PRN PO CONSTIPATION Last administered on 14:39; Admin Dose 5 MG; Start 09/02/16 at 10:00 Famotidine (Pepcid) 20 mg Q24H PO Last administered on 09/05/16 20:48; Admin Dose 20 MG; Start 09/02/16 at 21:00 Enoxaparin Sodium (Lovenox) 30 mg DAILY SC Last administered on 09/04/16 10:15 ; Admin Dose 30 MG; Start 09/03/16 at 09:00 Hydralazine HCl (Apresoline) 10 mg Q6H PRN IV SBP>160 Last administered on 09/04 10:39; Admin Dose 10 MG; Start 09/02/16 at 10:00 Amlodipine Besylate (Norvasc) 5 mg DAILY PO Last administered on 09/06/16 09: 03; Admin Dose 5 MG; Start 09/03/16 at 09:00 Calcium Carbonate (Oyster Shell Calcium) 0.5 gm DAILY PO Last administered on 09:02; Admin Dose 0.5 GM; Start 09/03/16 at 09:00 Docusate Sodium (Colace) 100 mg TID PO Last administered on 09/06/16 09:02; Admin Dose 100 MG; Start 09/02/16 at 13:00 EZETIMIBE (Zetia) 10 mg HS PO Last administered on 09/05/16 20:48; Admin Dose 10 MG; Start 09/02/16 at 21:00 Ferrous Sulfate (Ferrous Sulfate (Ec)) 325 mg DAILY PO Last administered on 09:01; Admin Dose 325 MG; Start 09/03/16 at 09:00 Metoprolol Succinate (Toprol Xl) 25 mg DAILY PO Last administered on 09/06/16 09:02; Admin Dose 25 MG; Start 09/03/16 at 09:00 Solifenacin (Vesicare) 5 mg DAILY PO Last administered on 09/06/16 09:01; Admin Dose 5 MG; Start 09/03/16 at 09:00 Losartan Potassium (Cozaar) 100 mg DAILY PO Last administered on 09/06/16 09: 03; Admin Dose 100 MG; Start 09/03/16 at 09:00 Atorvastatin Calcium (Lipitor) 80 mg DAILY@21 PO Last administered on 20:48; Admin Dose 80 MG; Start 09/02/16 at 21:00 Cholecalciferol (Vitamin D) 1,000 unit DAILY PO Last administered on 09/06/16 09:02; Admin Dose 1,000 UNIT; Start 09/03/16 at 09:00 Insulin Glargine (Lantus) 15 unit DAILY@20 SC Last administered on 09/05/16 20 :20; Admin Dose 15 UNIT; Start 09/02/16 at 20:00 Miscellaneous Information 1 ea NOTE XX ; Start 09/02/16 at 10:30 Glucose (Glutose) 15 gm Q15M PRN PO DECREASED GLUCOSE; Start 09/02/16 at 10:30 Glucose (Glutose) 22.5 gm Q15M PRN PO DECREASED GLUCOSE; Start 09/02/16 at 10: 30 Dextrose (D50w Syringe) 25 ml Q15M PRN IV DECREASED GLUCOSE; Start 09/02/16 at 10:30 Dextrose (D50w Syringe) 50 ml Q15M PRN IV DECREASED GLUCOSE; Start 09/02/16 at 10:30 Glucagon (Glucagen) 1 mg Q15M PRN IM DECREASED GLUCOSE; Start 09/02/16 at 10:30 Glucose (Glutose) 15 gm Q15M PRN BUCCAL DECREASED GLUCOSE; Start 09/02/16 at 10 :30 Diagnostic Test (Pha) (Accu-Chek) 1 ea 02 XX Last administered on 09/06/16 01: 54; Admin Dose 1 EA; Start 09/03/16 at 02:00 Acetaminophen/ Hydrocodone Bitart ([place] (325)) 1 tab Q4H PRN PO PAIN Last administered on 09/02/16 22:33; Admin Dose 1 TAB; Start 09/02/16 at 20:30 Acetaminophen/ Hydrocodone Bitart ([place] (325)) 2 tab Q4H PRN PO PAIN Last administered on 09/03/16 15:40; Admin Dose 2 TAB; Start 09/03/16 at 04:00 Hydralazine HCl (Apresoline) 10 mg Q4H PRN IV sbp > 160; Start 09/04/16 at 11: 30 Hydromorphone HCl 1 mg 1 mg Q4H PRN IV PAIN Last administered on 09/05/16 00: 36; Admin Dose 1 MG; Start 09/04/16 at 12:30 Potassium Chloride/Sodium Chloride (NS-KCl 20 Meq) 1,000 ml @ 75 mls/hr [id number] IV Last administered on 09/05/16 03:56; Admin Dose 75 MLS/HR; Start at 12:30 Haloperidol 5 mg 5 mg Q8H PRN IM PSYCHOSIS Last administered on 09/05/16 18:19 ; Admin Dose 5 MG; Start 09/05/16 at 11:30 Dextrose/Lactated Ringer's 1,000 ml @ 80 mls/hr [id number] IV Last administered on 09/05/16 20:11; Admin Dose 80 MLS/HR; Start 09/05/16 at 17:05 Cefazolin Sodium (Ancef 1 Gm/50 ml (Pmx)) 50 ml @ 100 mls/hr Q8H IVPB Last administered on 09/06/16t 09:03; Admin Dose 100 MLS/HR; Start 09/05/16 at 17:30 ; Stop 09/06/16 at 09:59 Morphine Sulfate (morphine) 2 mg Q2H PRN IV PAIN; Start 09/05/16 at 17:30 Acetaminophen/ Hydrocodone Bitart ([place] (5/325)) 1 tab Q3H PRN PO PAIN; Start 09/05/16 at 17:30 Procedures Procedures PROCEDURE: XR Hip. CLINICAL INDICATION: Internal metallic fixation of fracture of the right hip. TECHNIQUE: Single frontal view of the right hip.. COMPARISON: None. FINDINGS: To and IM bob fixation at the proximal right femur status post comminuted subtrochanteric fracture. Post surgical air and fluid over the right hip. IMPRESSION: No evident hardware complication. RPTAT: [facility] Physician Sheron Date Time Electronically viewed and signed by Jerrell Rooney Physician on 09/05/2016 18:15 RS/ CC: KENNETH KWAN MD, B[place] M. September 06, 2016 10:06
--- NOTE | 2016-09-06 11:13 | RADRPT ---
PROCEDURE: XR Hip. CLINICAL INDICATION: Fracture. TECHNIQUE: Right hip x-rays, 7 intraoperative fluoroscopic views. Fluoroscopy time: 188.9 second s. COMPARISON: 09/02/2016. FINDINGS: Preliminary images demonstrate a comminuted intertrochanteric fracture of the right proximal femur. Final images demonstrate intramedullary hardware in place throughout the length of the femur. The hip joint is intact. IMPRESSION: Surgical changes compatible with ORIF of right intertrochanteric fracture. RPTAT: [facility] .Rachel Elmore MD, MD Date Time Electronically viewed and signed by .Rachel Elmore MD, on 09/06/2016 11:13 .T/
[2016-09-06] MEDS ORDERED: ACETAMINOPHEN 500 MG TAB PO PRN (11:30)
--- NOTE | 2016-09-06 13:31 | CONS ---
Date/Time of Note Date/Time of Note DATE: 09/06/16 TIME: 13:29 Assessment/Plan Assessment/Plan Chief Complaint/Hosp Course Imp: 1.Pre-op-for Hip fx- No ischemia by lexiscan/NL EF. NO cardiac contraindication to proceeding to oR on current medications without further noninvasive evaluation at moderate risk. NL EF by echo and no sig valve abnl. Now POD#1 s/p LE ORIF 2. s/p fall-? mechanical 3. H/O cad/PR 4.HTN 5.Dyslipidemia Recc: -Continue BB/ARB/CCB post-op -Continue pain control -Routine post-op care -check 12 lead ecg Problems: Consultation Date/Type/Reason Admit Date/Time September 02, 2016 at 08:37 Initial Consult Date 09/02/2016 Type of Consultation: Cardiology Reason for Consultation Preop Referring Provider: ANGELA DURHAM Exam/Review of Systems Vital Signs Vitals Vital Signs Date Time Temp Pulse Resp B/P Pulse Ox O2 Delivery O2 Flow Rate FiO2 09/06/16 07:50 99.1 113 18 130/62 92 09/06/16 06:00 Room Air 09/05/16 17:32 2.0 Intake and Output 09/05/16 09/05/16 09/06/16 15:00 23:00 07:00 Intake Total 675 ml 1550 ml 690 ml Output Total 325 ml 600 ml Balance 675 ml 1225 ml 90 ml Exam Review of Systems: CONSTITUTIONAL: No fevers, chills. PULMONARY: No sob CARDIOVASCULAR: No chest pain/palpitations GASTROINTESTINAL: No nausea/vomiting. GENITOURINARY: No hematuria/dysuria. MUSCULOSKELETAL:Pain in hip PSYCHIATRIC: The patient denies depression. NEUROLOGIC: No weakness Constitutional: alert Psych: no complaints Head: normocephalic ENMT: mucosa pink and moist Neck: jvd (9 cm water), supple Respiratory: diminished breath sounds (at bases/B) Cardiovascular: regular rate and rhythm Gastrointestinal: non-tender, soft Musculoskeletal: muscle tone (normal) Extremities: edema (none) Neurological: other (No focal deficits) Results Result Diagram: 09/06/16 0517 09/06/16 0517 Results 24 hrs Laboratory Tests Test 09/05/16 17:21 09/05/16 17:40 5/24/17 20:14 09/06/16 01:53 Bedside Glucose 218 224 H 218 White Blood Count 12.5 H Red Blood Count 2.58 L Hemoglobin 7.9 L Hematocrit 24.7 L Mean Corpuscular Volume 95.7 Mean Corpuscular Hemoglobin 30.6 Mean Corpuscular Hemoglobin Concent 32.0 Red Cell Distribution Width 13.0 Platelet Count 215 Mean Platelet Volume 10.1 Neutrophils % 70.5 Lymphocytes % 20.3 Monocytes % 8.0 Eosinophils % 0.4 Basophils % 0.2 Nucleated Red Blood Cells % 0.0 Neutrophils # 8.8 H Lymphocytes # 2.5 Monocytes # 1.0 H Eosinophils # 0.1 Basophils # 0.0 Nucleated Red Blood Cells # 0.0 Test 09/06/16 05:17 09/06/16 08:05 09/06/16 09:00 09/06/16 12:08 White Blood Count 8.7 # Red Blood Count 2.27 L Hemoglobin 6.9 *L Hematocrit 21.3 L Mean Corpuscular Volume 93.8 Mean Corpuscular Hemoglobin 30.4 Mean Corpuscular Hemoglobin Concent 32.4 Red Cell Distribution Width 13.1 Platelet Count 203 Mean Platelet Volume 10.3 Neutrophils % 70.4 Lymphocytes % 19.4 Monocytes % 9.0 Eosinophils % 0.6 Basophils % 0.1 Nucleated Red Blood Cells % 0.0 Neutrophils # 6.1 Lymphocytes # 1.7 Monocytes # 0.8 Eosinophils # 0.1 Basophils # 0.0 Nucleated Red Blood Cells # 0.0 Prothrombin Time 17.4 #H Prothrombin Time Ratio 1.4 INR International Normalized Ratio 1.42 Sodium Level 142 Potassium Level 3.7 Chloride Level 108 Carbon Dioxide Level 24 Anion Gap 14 Blood Urea Nitrogen 14 Creatinine 0.81 Glucose Level 227 H Calcium Level 7.8 L Magnesium Level 1.6 L Total Bilirubin 0.4 Direct Bilirubin 0.00 Indirect Bilirubin 0.4 Aspartate Amino Transf (AST/SGOT) 30 Alanine Aminotransferase (ALT/SGPT) 29 Alkaline Phosphatase 39 L Total Protein 5.6 L Albumin 2.6 L Globulin 3.00 Albumin/Globulin Ratio 0.86 Bedside Glucose 260 H 339 H 192 Medications Medications Current Medications Lorazepam (Ativan) 0.5 mg Q6H PRN IV ANXIETY Last administered on 09/05/16t 06: 38; Admin Dose 0.5 MG; Start 09/02/16 at 10:00 Ondansetron HCl (Zofran Inj) 4 mg Q6H PRN IV NAUSEA AND/OR VOMITING; Start at 10:00 Acetaminophen (Tylenol Tab) 650 mg Q6H PRN PO PAIN LEVEL 1-3 OR FEVER; Start at 10:00 Magnesium Hydroxide (Milk Of Mag) 30 ml DAILY PRN PO CONSTIPATION; Start at 10:00 Bisacodyl (Dulcolax) 5 mg DAILY PRN PO CONSTIPATION Last administered on 14:39; Admin Dose 5 MG; Start 09/02/16 at 10:00 Famotidine (Pepcid) 20 mg Q24H PO Last administered on 09/05/16 20:48; Admin Dose 20 MG; Start 09/02/16 at 21:00 Enoxaparin Sodium (Lovenox) 30 mg DAILY SC Last administered on 09/04/16 10:15 ; Admin Dose 30 MG; Start 09/03/16 at 09:00 Hydralazine HCl (Apresoline) 10 mg Q6H PRN IV SBP>160 Last administered on 09/04 10:39; Admin Dose 10 MG; Start 09/02/16 at 10:00 Amlodipine Besylate (Norvasc) 5 mg DAILY PO Last administered on 09/06/16 09: 03; Admin Dose 5 MG; Start 09/03/16 at 09:00 Calcium Carbonate (Oyster Shell Calcium) 0.5 gm DAILY PO Last administered on 09:02; Admin Dose 0.5 GM; Start 09/03/16 at 09:00 Docusate Sodium (Colace) 100 mg TID PO Last administered on 09/06/16 09:02; Admin Dose 100 MG; Start 09/02/16 at 13:00 EZETIMIBE (Zetia) 10 mg HS PO Last administered on 09/05/16 20:48; Admin Dose 10 MG; Start 09/02/16 at 21:00 Ferrous Sulfate (Ferrous Sulfate (Ec)) 325 mg DAILY PO Last administered on 09:01; Admin Dose 325 MG; Start 09/03/16 at 09:00 Metoprolol Succinate (Toprol Xl) 25 mg DAILY PO Last administered on 09/06/16 09:02; Admin Dose 25 MG; Start 09/03/16 at 09:00 Solifenacin (Vesicare) 5 mg DAILY PO Last administered on 09/06/16 09:01; Admin Dose 5 MG; Start 09/03/16 at 09:00 Losartan Potassium (Cozaar) 100 mg DAILY PO Last administered on 09/06/16 09: 03; Admin Dose 100 MG; Start 09/03/16 at 09:00 Atorvastatin Calcium (Lipitor) 80 mg DAILY@21 PO Last administered on 20:48; Admin Dose 80 MG; Start 09/02/16 at 21:00 Cholecalciferol (Vitamin D) 1,000 unit DAILY PO Last administered on 09/06/16 09:02; Admin Dose 1,000 UNIT; Start 09/03/16 at 09:00 Insulin Glargine (Lantus) 15 unit DAILY@20 SC Last administered on 09/05/16 20 :20; Admin Dose 15 UNIT; Start 09/02/16 at 20:00 Miscellaneous Information 1 ea NOTE XX ; Start 09/02/16 at 10:30 Glucose (Glutose) 15 gm Q15M PRN PO DECREASED GLUCOSE; Start 09/02/16 at 10:30 Glucose (Glutose) 22.5 gm Q15M PRN PO DECREASED GLUCOSE; Start 09/02/16 at 10: 30 Dextrose (D50w Syringe) 25 ml Q15M PRN IV DECREASED GLUCOSE; Start 09/02/16 at 10:30 Dextrose (D50w Syringe) 50 ml Q15M PRN IV DECREASED GLUCOSE; Start 09/02/16 at 10:30 Glucagon (Glucagen) 1 mg Q15M PRN IM DECREASED GLUCOSE; Start 09/02/16 at 10:30 Glucose (Glutose) 15 gm Q15M PRN BUCCAL DECREASED GLUCOSE; Start 09/02/16 at 10 :30 Diagnostic Test (Pha) (Accu-Chek) 1 ea 02 XX Last administered on 09/06/16 01: 54; Admin Dose 1 EA; Start 09/03/16 at 02:00 Acetaminophen/ Hydrocodone Bitart ([place] (10325)) 1 tab Q4H PRN PO PAIN Last administered on 09/02/16 22:33; Admin Dose 1 TAB; Start 09/02/16 at 20:30 Acetaminophen/ Hydrocodone Bitart ([place] (10/325)) 2 tab Q4H PRN PO PAIN Last administered on 09/03/16 15:40; Admin Dose 2 TAB; Start 09/03/16 at 04:00 Hydralazine HCl (Apresoline) 10 mg Q4H PRN IV sbp > 160; Start 09/04/16 at 11: 30 Hydromorphone HCl 1 mg 1 mg Q4H PRN IV PAIN Last administered on 09/05/16 00: 36; Admin Dose 1 MG; Start 09/04/16 at 12:30 Potassium Chloride/Sodium Chloride (NS-KCl 20 Meq) 1,000 ml @ 75 mls/hr [id number] IV Last administered on 09/05/16 03:56; Admin Dose 75 MLS/HR; Start at 12:30 Haloperidol 5 mg 5 mg Q8H PRN IM PSYCHOSIS Last administered on 09/05/16 18:19 ; Admin Dose 5 MG; Start 09/05/16 at 11:30 Dextrose/Lactated Ringer's (D5-Lr) 1,000 ml @ 80 mls/hr [id number] IV Last administered on 09/05/16 20:11; Admin Dose 80 MLS/HR; Start 09/05/16 at 17:05 Morphine Sulfate (morphine) 2 mg Q2H PRN IV PAIN; Start 09/05/16 at 17:30 Acetaminophen/ Hydrocodone Bitart ([place] (5/325)) 1 tab Q3H PRN PO PAIN; Start 09/05/16 at 17:30 Acetaminophen (Tylenol Tab) 1,000 mg Q6H PRN PO PAIN AND OR ELEVATED TEMP Last administered on 09/06/16 11:22; Admin Dose 1,000 MG; Start 09/06/16 at 11:30 AMANDA DICK September 06, 2016 13:31
[2016-09-06] MEDS: POLYETHYLENE GLYCOL 17 GM PACKET PO SCH (15:00)
--- NOTE | 2016-09-06 17:23 | OPR ---
DATE OF OPERATION: 09/06/2016 PROCEDURE AND FINDINGS: Under general anesthesia, the patient was placed on the fracture table. Ut ilizing fracture table and under fluoroscopic monitoring, preliminary manipulative reduction of the left hip was carried out until an acceptable alignment could be achieved. Usual prep and drape was done exposing the right hip. The right hip was approached through the late ral longitudinal incision, and the intertrochanteric area of the right hip was approached. The inte rtrochanteric area was approached with the small lateral longitudinal incision. After opening fasci a leticia, the tip of the greater trochanter was identified and through this tip of the greater trochan ter intramedullary canal was entered with the guide drill. After confirming satisfactory position o f the guide drill, opening was enlarged and after opening further with the cannulated drill. A ream er guide was then introduced into the intramedullary canal. After adjusting the position of the crow lukasz guide, measurement was made and it was my estimation that this patient would do best with the 34 cm intramedullary nailing combined with the 10 mm thickness and 125 degree angle. After reaming al teja the reamer, we selected intramedullary device in the size of 10 mm x 34 cm was pounded in. The tip after confirming satisfactory position of the intramedullary nail and after proper rotator adjus tment, a guide pin for the lag screw was properly positioned and the measurement revealed that the l ength of the lag screw should be 85 mm. At the end of the procedure, the alignment of the fracture was satisfactory and the position of the fixation device was proper. After irrigation and hemostasis, closure of the incision was carried ou t using 0 Vicryl for muscle and fascia and 2-0 Vicryl for subcutaneous tissues. Skin closure was ca rried out. The patient tolerated the entire procedure very well and was sent to the recovery room in good condi tion. Dictated By: ADIN CARPIO/THOMAS Conf#: [id number] DID#: [id number]
--- NOTE | 2016-09-06 17:40 | RADRPT ---
Vent Rate: 110 bpm RR Interval: 0 msec DE Interval: 142 msec QRS Duration: 70 msec QT Interval: 296 msec QTC Interval: 400 msec P-R-T [place]: 40 - 15 - 136 degrees Sinus tachycardia Nonspecific T wave abnormality Abnormal ECG Electronically Signed By: Ramez Blount [id number]
--- NOTE | 2016-09-06 20:18 | PN ---
DATE: 09/06/2016 SUBJECTIVE: Low-grade temperature. Postop x-ray shows acceptable alignment of the fractures. H an d H are down to 6.9/21.3, being transfused. No sign of neurovascular compromise. Dictated By: ADIN CARPIO/THOMAS Conf#: [id number] DID#: [id number]
[2016-09-06] MEDS: ATORVASTATIN 80 MG TAB PO SCH (21:01)
[2016-09-06] MEDS: EZETIMIBE 10 MG TAB PO SCH (21:01)
[2016-09-06] MEDS: FAMOTIDINE 20 MG TAB PO SCH (21:01)
[2016-09-06] MEDS: INSULIN GLARGINE [LANtus] 3 ML PEN SC SCH (21:06)
[2016-09-07] MEDS: ACCUCHECK AT 2AM (Patients on SS coverage) XX SCH (02:00)
[2016-09-07 05:30] LABS: ADD SCAN DIFF NO
[2016-09-07 05:38] LABS: BASOPHILS % 0.1 % (0.0-2.0); EOSINOPHILS # 0.3 10^3/ul (0.0-0.5); EOSINOPHILS % 2.8 % (0.0-7.0); HEMATOCRIT 28.6 % (37.0-47.0); HEMOGLOBIN 9.5 g/dl (12.0-16.0); LYMPHOCYTES % 28.3 % (15.0-51.0); MEAN CORPUSCULAR HEMOGLOBIN 30.3 pg (29.0-33.0); MEAN CORPUSCULAR HGB CONC 33.2 g/dl (32.0-37.0); MEAN CORPUSCULAR VOLUME 91.1 fl (82.0-101.0); MEAN PLATELET VOLUME 10.1 fl (7.4-10.4); MONOCYTE # 0.8 10^3/ul (0.3-0.9); MONOCYTES % 7.4 % (0.0-11.0); NEUTROPHIL # 6.4 10^3/ul (1.6-7.5); PLATELET COUNT 203 10^3/UL (140-415); RED BLOOD COUNT 3.14 10^6/ul (4.20-5.40); RED CELL DISTRIBUTION WIDTH 14.8 % (11.5-14.5); WHITE BLOOD COUNT 10.5 10^3/ul (4.8-10.8)
[2016-09-07 05:45] LABS: ALBUMIN 2.6 g/dl (3.3-4.9)
[2016-09-07 05:46] LABS: POTASSIUM 4.4 mmol/L (3.5-5.1)
[2016-09-07 05:48] LABS: ALBUMIN/GLOBULIN RATIO 0.86; BILIRUBIN,INDIRECT 0.6 mg/dl (0-1.1); BILIRUBIN,TOTAL 0.6 mg/dl (0.2-1.3); CREATININE 0.81 mg/dl (0.44-1.00); TOTAL PROTEIN 5.6 g/dl (6.1-8.1)
[2016-09-07 05:49] LABS: CALCIUM 7.6 mg/dl (8.4-10.2)
[2016-09-07 06:00] LABS: INR 1.15; PROTIME 14.7 Sec (12.2-14.2); PT RATIO 1.1
[2016-09-07] MEDS: NS + KCL 20 MEQ 1,000 ML IV SCH (06:13)
[2016-09-07 07:42] VITALS: BP 149/65; RESP 20
[2016-09-07] MEDS: FERROUS SULFATE (EC) 325 MG TAB PO SCH (08:09)
[2016-09-07] MEDS: DOCUSATE SODIUM 100 MG CAP PO SCH ×3 (08:09→20:47)
[2016-09-07] MEDS: SOLIFENACIN 5 MG TAB PO SCH (08:09)
[2016-09-07] MEDS: LOSARTAN 50 MG TAB PO SCH (08:09)
[2016-09-07] MEDS: CHOLECALCIFEROL 1,000 UNIT TAB PO SCH (08:09)
[2016-09-07] MEDS: AMLODIPINE 5 MG TAB PO SCH (08:10)
[2016-09-07] MEDS: CALCIUM CARBONATE 1.25 GM TAB PO SCH (08:10)
[2016-09-07] MEDS: METOPROLOL (XL) 25 MG TAB PO SCH ×2 (08:10→20:46)
[2016-09-07] MEDS: POLYETHYLENE GLYCOL 17 GM PACKET PO SCH (08:11)
[2016-09-07] MEDS: INSULIN ASPART [NOVOLOG] 3 ML PEN SC SCH ×7 (08:23→20:43)
[2016-09-07] MEDS: ENOXAPARIN 30 MG/0.3 ML SYG SC SCH (08:23)
--- NOTE | 2016-09-07 13:16 | PN ---
Date/Time of Note Date/Time of Note DATE: 09/07/16 TIME: 13:12 Assessment/Plan VTE Prophylaxis VTE Prophylaxis Intervention: LMWH Lines/Catheters IV Catheter Type (from Nrs): Peripheral IV Urinary Cath still in place: Yes (patient pulled out valles) Reason Cath still needed: other (indicate) (post op, pt is not ambulatory and weight bearing yet ) Assessment/Plan Assessment/Plan 1. Status post mechanical fall with right femoral intratrochanteric and the proximal femoral shaft fracture. * Patient is status post surgical repair September 05, 2016 2. Post op Acute blood loss anemia s/p PRBC transfusion 2. Essential hypertension. controlled, pain control 3. Type 2 diabetes mellitus. The patient will be continued on sliding scale insulin along with basal insulin and premeal insulin. 4. Dyslipidemia. on statin 5. 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 6. Osteoporosis. The patient will be maintained on vitamin D supplements. 7. Leukocytosis. Most probably reactive in origin. Improving. DVT prophylaxis. Subcutaneous Lovenox. GI prophylaxis; pepcid pt is still bedridden, BP stable, As per Orthopedic no weight bearing yet due to complex surgery , will wait for Ortho to clear for PT keep valles catheter for now SNF placement Subjective 24 Hr Interval Summary Free Text/Dictation Doing ok, s/p 2 units PRBC, BP stable , No weightbearing yet, still has valles catheter Exam/Review of Systems Vital Signs Vitals Vital Signs Date Time Temp Pulse Resp B/P Pulse Ox O2 Delivery O2 Flow Rate FiO2 09/07/16 11:59 98.1 09/07/16 07:42 108 20 149/65 94 09/06/16 16:00 Room Air 09/05/16 17:32 2.0 Intake and Output 09/06/16 09/06/16 09/07/16 15:00 23:00 07:00 Intake Total 410 ml 2580 ml 1240 ml Output Total 1200 ml 1200 ml Balance 410 ml 1380 ml 40 ml Exam Constitutional: alert, obese Psych: confusion Head: normocephalic awake,alert, no acute distress Respiratory: diminished breath sounds Cardiovascular: regular rate and rhythm, No murmurs/extra sounds Gastrointestinal: bowel sounds, non-tender, soft Musculoskeletal: No range of motion Extremities: knee dressing, + valles catheter Results Result Diagram: 09/07/16 0513 09/07/16 0513 Results 24 hrs Laboratory Tests Test 09/06/16 17:30 09/06/16 21:00 09/07/16 05:13 09/07/16 08:05 Bedside Glucose 275 H 138 175 White Blood Count 10.5 # Red Blood Count 3.14 #L Hemoglobin 9.5 #L Hematocrit 28.6 #L Mean Corpuscular Volume 91.1 Mean Corpuscular Hemoglobin 30.3 Mean Corpuscular Hemoglobin Concent 33.2 Red Cell Distribution Width 14.8 H Platelet Count 203 Mean Platelet Volume 10.1 Neutrophils % 61.0 Lymphocytes % 28.3 Monocytes % 7.4 Eosinophils % 2.8 Basophils % 0.1 Nucleated Red Blood Cells % 0.0 Neutrophils # 6.4 Lymphocytes # 3.0 H Monocytes # 0.8 Eosinophils # 0.3 Basophils # 0.0 Nucleated Red Blood Cells # 0.0 Prothrombin Time 14.7 H Prothrombin Time Ratio 1.1 INR International Normalized Ratio 1.15 Sodium Level 138 Potassium Level 4.4 Chloride Level 106 Carbon Dioxide Level 24 Anion Gap 12 Blood Urea Nitrogen 11 Creatinine 0.81 Glucose Level 160 Calcium Level 7.6 L Total Bilirubin 0.6 Direct Bilirubin 0.00 Indirect Bilirubin 0.6 Aspartate Amino Transf (AST/SGOT) 67 H Alanine Aminotransferase (ALT/SGPT) 53 Alkaline Phosphatase 54 Total Protein 5.6 L Albumin 2.6 L Globulin 3.00 Albumin/Globulin Ratio 0.86 Test 09/07/16 12:11 Bedside Glucose 174 Medications Medications Current Medications Lorazepam (Ativan) 0.5 mg Q6H PRN IV ANXIETY Last administered on 09/05/16 06: 38; Admin Dose 0.5 MG; Start 09/02/16 at 10:00 Ondansetron HCl (Zofran Inj) 4 mg Q6H PRN IV NAUSEA AND/OR VOMITING; Start at 10:00 Acetaminophen (Tylenol Tab) 650 mg Q6H PRN PO PAIN LEVEL 1-3 OR FEVER; Start at 10:00 Magnesium Hydroxide (Milk Of Mag) 30 ml DAILY PRN PO CONSTIPATION Last administered on 09/06/16 14:27; Admin Dose 30 ML; Start 09/02/16 at 10:00 Bisacodyl (Dulcolax) 5 mg DAILY PRN PO CONSTIPATION Last administered on 14:39; Admin Dose 5 MG; Start 09/02/16 at 10:00 Famotidine (Pepcid) 20 mg Q24H PO Last administered on 09/06/16 21:01; Admin Dose 20 MG; Start 09/02/16 at 21:00 Enoxaparin Sodium (Lovenox) 30 mg DAILY SC Last administered on 09/07/16 08:23 ; Admin Dose 30 MG; Start 09/03/16 at 09:00 Hydralazine HCl (Apresoline) 10 mg Q6H PRN IV SBP>160 Last administered on 09/04 10:39; Admin Dose 10 MG; Start 09/02/16 at 10:00 Amlodipine Besylate (Norvasc) 5 mg DAILY PO Last administered on 09/07/16 08: 10; Admin Dose 5 MG; Start 09/03/16 at 09:00 Calcium Carbonate (Oyster Shell Calcium) 0.5 gm DAILY PO Last administered on 08:10; Admin Dose 0.5 GM; Start 09/03/16 at 09:00 Docusate Sodium (Colace) 100 mg TID PO Last administered on 09/07/16 08:09; Admin Dose 100 MG; Start 09/02/16 at 13:00 EZETIMIBE (Zetia) 10 mg HS PO Last administered on 09/06/16 21:01; Admin Dose 10 MG; Start 09/02/16 at 21:00 Ferrous Sulfate (Ferrous Sulfate (Ec)) 325 mg DAILY PO Last administered on 08:09; Admin Dose 325 MG; Start 09/03/16 at 09:00 Metoprolol Succinate (Toprol Xl) 25 mg DAILY PO Last administered on 09/07/16 08:10; Admin Dose 25 MG; Start 09/03/16 at 09:00 Solifenacin (Vesicare) 5 mg DAILY PO Last administered on 09/07/16 08:09; Admin Dose 5 MG; Start 09/03/16 at 09:00 Losartan Potassium (Cozaar) 100 mg DAILY PO Last administered on 09/07/16 08: 09; Admin Dose 100 MG; Start 09/03/16 at 09:00 Atorvastatin Calcium (Lipitor) 80 mg DAILY@21 PO Last administered on 21:01; Admin Dose 80 MG; Start 09/02/16 at 21:00 Cholecalciferol (Vitamin D) 1,000 unit DAILY PO Last administered on 09/07/16 08:09; Admin Dose 1,000 UNIT; Start 09/03/16 at 09:00 Insulin Glargine (Lantus) 15 unit DAILY@20 SC Last administered on 09/06/16 21 :06; Admin Dose 15 UNIT; Start 09/02/16 at 20:00 Miscellaneous Information 1 ea NOTE XX ; Start 09/02/16 at 10:30 Glucose (Glutose) 15 gm Q15M PRN PO DECREASED GLUCOSE; Start 09/02/16 at 10:30 Glucose (Glutose) 22.5 gm Q15M PRN PO DECREASED GLUCOSE; Start 09/02/16 at 10: 30 Dextrose (D50w Syringe) 25 ml Q15M PRN IV DECREASED GLUCOSE; Start 09/02/16 at 10:30 Dextrose (D50w Syringe) 50 ml Q15M PRN IV DECREASED GLUCOSE; Start 09/02/16 at 10:30 Glucagon (Glucagen) 1 mg Q15M PRN IM DECREASED GLUCOSE; Start 09/02/16 at 10:30 Glucose (Glutose) 15 gm Q15M PRN BUCCAL DECREASED GLUCOSE; Start 09/02/16 at 10 :30 Diagnostic Test (Pha) (Accu-Chek) 1 ea 02 XX Last administered on 09/06/16 01: 54; Admin Dose 1 EA; Start 09/03/16 at 02:00 Acetaminophen/ Hydrocodone Bitart ([place] (10/325)) 1 tab Q4H PRN PO PAIN Last administered on 09/02/16 22:33; Admin Dose 1 TAB; Start 09/02/16 at 20:30 Acetaminophen/ Hydrocodone Bitart ([place] (10/325)) 2 tab Q4H PRN PO PAIN Last administered on 09/03/16 15:40; Admin Dose 2 TAB; Start 09/03/16 at 04:00 Hydralazine HCl (Apresoline) 10 mg Q4H PRN IV sbp > 160; Start 09/04/16 at 11: 30 Hydromorphone HCl 1 mg 1 mg Q4H PRN IV PAIN Last administered on 09/05/16 00: 36; Admin Dose 1 MG; Start 09/04/16 at 12:30 Potassium Chloride/Sodium Chloride (NS-KCl 20 Meq) 1,000 ml @ 75 mls/hr [id number] IV Last administered on 09/07/16 06:13; Admin Dose 75 MLS/HR; Start at 12:30 Haloperidol (Haldol) 5 mg Q8H PRN IM PSYCHOSIS Last administered on 09/05/16 18:19; Admin Dose 5 MG; Start 09/05/16 at 11:30 Morphine Sulfate (morphine) 2 mg Q2H PRN IV PAIN; Start 09/05/16 at 17:30 Acetaminophen/ Hydrocodone Bitart ([place] (5/325)) 1 tab Q3H PRN PO PAIN; Start 09/05/16 at 17:30 Acetaminophen (Tylenol Tab) 1,000 mg Q6H PRN PO PAIN AND OR ELEVATED TEMP Last administered on 09/06/16 11:22; Admin Dose 1,000 MG; Start 09/06/16 at 11:30 Polyethylene Glycol (Miralax) 8.5 gm DAILY PO ; Start 09/06/16 at 15:00 ADDISON BIRMINGHAM MD September 07, 2016 13:16
[2016-09-07 19:42] VITALS: BP 140/65; RESP 20
[2016-09-07] MEDS: INSULIN GLARGINE [LANtus] 3 ML PEN SC SCH (20:45)
[2016-09-07] MEDS: FAMOTIDINE 20 MG TAB PO SCH (20:46)
[2016-09-07] MEDS: EZETIMIBE 10 MG TAB PO SCH (20:46)
[2016-09-07] MEDS: ATORVASTATIN 20 MG TAB PO SCH (20:46)
[2016-09-08] MEDS: ACCUCHECK AT 2AM (Patients on SS coverage) XX SCH (02:00)
[2016-09-08 05:55] LABS: ADD SCAN DIFF NO
[2016-09-08 05:58] LABS: BASOPHILS % 0.3 % (0.0-2.0); EOSINOPHILS # 0.3 10^3/ul (0.0-0.5); EOSINOPHILS % 2.7 % (0.0-7.0); HEMATOCRIT 30.7 % (37.0-47.0); HEMOGLOBIN 10.2 g/dl (12.0-16.0); LYMPHOCYTES # 2.7 10^3/ul (0.8-2.9); LYMPHOCYTES % 28.2 % (15.0-51.0); MEAN CORPUSCULAR HEMOGLOBIN 30.3 pg (29.0-33.0); MEAN CORPUSCULAR HGB CONC 33.2 g/dl (32.0-37.0); MEAN CORPUSCULAR VOLUME 91.1 fl (82.0-101.0); MEAN PLATELET VOLUME 10.2 fl (7.4-10.4); MONOCYTE # 0.8 10^3/ul (0.3-0.9); MONOCYTES % 8.4 % (0.0-11.0); NEUTROPHIL # 5.8 10^3/ul (1.6-7.5); NEUTROPHILS % 59.9 % (39.0-77.0); PLATELET COUNT 259 10^3/UL (140-415); RED BLOOD COUNT 3.37 10^6/ul (4.20-5.40); RED CELL DISTRIBUTION WIDTH 14.3 % (11.5-14.5); WHITE BLOOD COUNT 9.7 10^3/ul (4.8-10.8)
[2016-09-08 06:20] LABS: INR 1.12; PROTIME 14.4 Sec (12.2-14.2); PT RATIO 1.1
[2016-09-08 06:23] LABS: CALCIUM 8.5 mg/dl (8.4-10.2); CREATININE 0.78 mg/dl (0.44-1.00); POTASSIUM 3.7 mmol/L (3.5-5.1)
[2016-09-08 06:25] LABS: PARTIAL THROMBOPLASTIN TIME 28.7 Sec (25.0-35.0)
[2016-09-08 07:46] VITALS: BP 180/74; RESP 18
[2016-09-08 08:31] VITALS: BP 158/74; PULSE 98
[2016-09-08] MEDS: CHOLECALCIFEROL 1,000 UNIT TAB PO SCH (08:32)
[2016-09-08] MEDS: CALCIUM CARBONATE 1.25 GM TAB PO SCH (08:32)
[2016-09-08] MEDS: DOCUSATE SODIUM 100 MG CAP PO SCH ×3 (08:32→21:39)
[2016-09-08] MEDS: METOPROLOL (XL) 25 MG TAB PO SCH ×2 (08:33→21:40)
[2016-09-08] MEDS: SOLIFENACIN 5 MG TAB PO SCH (08:33)
[2016-09-08] MEDS: AMLODIPINE 5 MG TAB PO SCH (08:33)
[2016-09-08] MEDS: LOSARTAN 50 MG TAB PO SCH (08:33)
[2016-09-08] MEDS: FERROUS SULFATE (EC) 325 MG TAB PO SCH (08:33)
[2016-09-08] MEDS: POLYETHYLENE GLYCOL 17 GM PACKET PO SCH (08:34)
[2016-09-08] MEDS: INSULIN ASPART [NOVOLOG] 3 ML PEN SC SCH ×7 (08:46→21:43)
[2016-09-08] MEDS: ENOXAPARIN 30 MG/0.3 ML SYG SC SCH (08:47)
--- NOTE | 2016-09-08 13:43 | PN ---
Date/Time of Note Date/Time of Note DATE: 09/08/16 TIME: 13:42 Assessment/Plan VTE Prophylaxis VTE Prophylaxis Intervention: LMWH Lines/Catheters IV [facility]ter [facility]from [facility] Assessment/Plan Chief Complaint/Hosp Course 1. Status post mechanical fall with right femoral intratrochanteric and the proximal femoral shaft fracture. * Patient is status post surgical repair September 05, 2016 2. Post op Acute blood loss anemia s/p PRBC transfusion 2. Essential hypertension. controlled, pain control 3. Type 2 diabetes mellitus. The patient will be continued on sliding scale insulin along with basal insulin and premeal insulin. 4. Dyslipidemia. on statin 5. 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 6. Osteoporosis. The patient will be maintained on vitamin D supplements. 7. Leukocytosis. Most probably reactive in origin. Improving. DVT prophylaxis. Subcutaneous Lovenox. GI prophylaxis; pepcid pt is still bedridden, BP stable, As per Orthopedic no weight bearing yet due to complex surgery , will wait for Ortho to clear for PT keep valles catheter for now SNF placement Problems: Subjective 24 Hr Interval Summary Constitutional: no complaints Exam/Review of Systems Vital Signs Vitals Vital Signs Date Time Temp Pulse Resp B/P Pulse Ox O2 Delivery O2 Flow Rate FiO2 09/08/16 08:31 98 158/74 09/08/16 07:46 98.5 18 96 09/06/16 16:00 Room Air 09/05/16 17:32 2.0 Intake and Output 09/07/16 09/07/16 09/08/16 15:00 23:00 07:00 Intake Total 425 ml 970 ml 360 ml Output Total 1100 ml 1200 ml Balance 425 ml -130 ml -840 ml Exam Constitutional: alert Respiratory: clear to auscultation Cardiovascular: regular rate and rhythm Gastrointestinal: soft, No distended Musculoskeletal: nl extremities to inspection Results Result Diagram: 09/08/16 0515 09/08/16 0515 Results 24 hrs Laboratory Tests Test 09/07/16 17:10 09/07/16 20:39 09/08/16 05:15 09/08/16 08:36 Bedside Glucose 210 234 H 202 White Blood Count 9.7 Red Blood Count 3.37 L Hemoglobin 10.2 L Hematocrit 30.7 L Mean Corpuscular Volume 91.1 Mean Corpuscular Hemoglobin 30.3 Mean Corpuscular Hemoglobin Concent 33.2 Red Cell Distribution Width 14.3 Platelet Count 259 # Mean Platelet Volume 10.2 Neutrophils % 59.9 Lymphocytes % 28.2 Monocytes % 8.4 Eosinophils % 2.7 Basophils % 0.3 Nucleated Red Blood Cells % 0.0 Neutrophils # 5.8 Lymphocytes # 2.7 Monocytes # 0.8 Eosinophils # 0.3 Basophils # 0.0 Nucleated Red Blood Cells # 0.0 Prothrombin Time 14.4 H Prothrombin Time Ratio 1.1 INR International Normalized Ratio 1.12 Activated Partial Thromboplast Time 28.7 Sodium Level 136 Potassium Level 3.7 Chloride Level 106 Carbon Dioxide Level 24 Anion Gap 10 Blood Urea Nitrogen 12 Creatinine 0.78 Glucose Level 205 Calcium Level 8.5 Test 09/08/16 12:10 Bedside Glucose 217 Medications Medications Current Medications Lorazepam (Ativan) 0.5 mg Q6H PRN IV ANXIETY Last administered on 09/05/16 06: 38; Admin Dose 0.5 MG; Start 09/02/16 at 10:00 Ondansetron HCl (Zofran Inj) 4 mg Q6H PRN IV NAUSEA AND/OR VOMITING; Start at 10:00 Acetaminophen (Tylenol Tab) 650 mg Q6H PRN PO PAIN LEVEL 1-3 OR FEVER; Start at 10:00 Magnesium Hydroxide (Milk Of Mag) 30 ml DAILY PRN PO CONSTIPATION Last administered on 09/06/16 14:27; Admin Dose 30 ML; Start 09/02/16 at 10:00 Bisacodyl (Dulcolax) 5 mg DAILY PRN PO CONSTIPATION Last administered on 14:39; Admin Dose 5 MG; Start 09/02/16 at 10:00 Famotidine (Pepcid) 20 mg Q24H PO Last administered on 09/07/16 20:46; Admin Dose 20 MG; Start 09/02/16 at 21:00 Enoxaparin Sodium (Lovenox) 30 mg DAILY SC Last administered on 09/08/16 08:47 ; Admin Dose 30 MG; Start 09/03/16 at 09:00 Hydralazine HCl (Apresoline) 10 mg Q6H PRN IV SBP>160 Last administered on 09/04 10:39; Admin Dose 10 MG; Start 09/02/16 at 10:00 Amlodipine Besylate (Norvasc) 5 mg DAILY PO Last administered on 09/08/16 08: 33; Admin Dose 5 MG; Start 09/03/16 at 09:00 Calcium Carbonate (Oyster Shell Calcium) 0.5 gm DAILY PO Last administered on 08:32; Admin Dose 0.5 GM; Start 09/03/16 at 09:00 Docusate Sodium (Colace) 100 mg TID PO Last administered on 09/08/16 12:07; Admin Dose 100 MG; Start 09/02/16 at 13:00 EZETIMIBE (Zetia) 10 mg HS PO Last administered on 09/07/16 20:46; Admin Dose 10 MG; Start 09/02/16 at 21:00 Ferrous Sulfate (Ferrous Sulfate (Ec)) 325 mg DAILY PO Last administered on 08:33; Admin Dose 325 MG; Start 09/03/16 at 09:00 Solifenacin (Vesicare) 5 mg DAILY PO Last administered on 09/08/16 08:33; Admin Dose 5 MG; Start 09/03/16 at 09:00 Losartan Potassium (Cozaar) 100 mg DAILY PO Last administered on 09/08/16 08: 33; Admin Dose 100 MG; Start 09/03/16 at 09:00 Cholecalciferol (Vitamin D) 1,000 unit DAILY PO Last administered on 09/08/16 08:32; Admin Dose 1,000 UNIT; Start 09/03/16 at 09:00 Insulin Glargine (Lantus) 15 unit DAILY@20 SC Last administered on 09/07/16 20 :45; Admin Dose 15 UNIT; Start 09/02/16 at 20:00 Miscellaneous Information 1 ea NOTE XX ; Start 09/02/16 at 10:30 Glucose (Glutose) 15 gm Q15M PRN PO DECREASED GLUCOSE; Start 09/02/16 at 10:30 Glucose (Glutose) 22.5 gm Q15M PRN PO DECREASED GLUCOSE; Start 09/02/16 at 10: 30 Dextrose (D50w Syringe) 25 ml Q15M PRN IV DECREASED GLUCOSE; Start 09/02/16 at 10:30 Dextrose (D50w Syringe) 50 ml Q15M PRN IV DECREASED GLUCOSE; Start 09/02/16 at 10:30 Glucagon (Glucagen) 1 mg Q15M PRN IM DECREASED GLUCOSE; Start 09/02/16 at 10:30 Glucose (Glutose) 15 gm Q15M PRN BUCCAL DECREASED GLUCOSE; Start 09/02/16 at 10 :30 Diagnostic Test (Pha) (Accu-Chek) 1 ea 02 XX Last administered on 09/06/16 01: 54; Admin Dose 1 EA; Start 09/03/16 at 02:00 Acetaminophen/ Hydrocodone Bitart ([place] (10/325)) 1 tab Q4H PRN PO PAIN Last administered on 09/02/16 22:33; Admin Dose 1 TAB; Start 09/02/16 at 20:30 Acetaminophen/ Hydrocodone Bitart ([place] (10/325)) 2 tab Q4H PRN PO PAIN Last administered on 09/03/16 15:40; Admin Dose 2 TAB; Start 09/03/16 at 04:00 Hydralazine HCl (Apresoline) 10 mg Q4H PRN IV sbp > 160; Start 09/04/16 at 11: 30 Hydromorphone HCl (Dilaudid) 1 mg Q4H PRN IV PAIN Last administered on 00:36; Admin Dose 1 MG; Start 09/04/16 at 12:30 Haloperidol (Haldol) 5 mg Q8H PRN IM PSYCHOSIS Last administered on 09/05/16 18:19; Admin Dose 5 MG; Start 09/05/16 at 11:30 Morphine Sulfate (morphine) 2 mg Q2H PRN IV PAIN; Start 09/05/16 at 17:30 Acetaminophen/ Hydrocodone Bitart ([place] (5/325)) 1 tab Q3H PRN PO PAIN; Start 09/05/16 at 17:30 Acetaminophen (Tylenol Tab) 1,000 mg Q6H PRN PO PAIN AND OR ELEVATED TEMP Last administered on 09/06/16 11:22; Admin Dose 1,000 MG; Start 09/06/16 at 11:30 Polyethylene Glycol (Miralax) 8.5 gm DAILY PO Last administered on 09/08/16 08 :34; Admin Dose 8.5 GM; Start 5/25/17 at 15:00 Atorvastatin Calcium (Lipitor) 20 mg DAILY@21 PO Last administered on 20:46; Admin Dose 20 MG; Start 09/07/16 at 21:00 Metoprolol Succinate (Toprol Xl) 25 mg BID PO Last administered on 09/08/16 08 :33; Admin Dose 25 MG; Start 09/07/16 at 21:00 EDINSON PAREDES September 08, 2016 13:43
--- NOTE | 2016-09-08 17:45 | CONS ---
Date/Time of Note Date/Time of Note DATE: 09/08/16 TIME: 17:41 Assessment/Plan Assessment/Plan Additional Assessment/Plan 1. Coronary artery disease status post myocardial infarction. 2. Obesity. 3. Urinary incontinence. 4. Anxiety disorder. 5. Bilateral carotid artery stenosis. 6. Osteoporosis. 7. Alzheimer disease. 8. History of pelvic fracture s/p ORIF Hypertensive Continue Metoprolol, Norvasc and losartan Continue Lipitor and Zetia Continue Insulin Continue GI and DVT Prophylaxis Continue to Closely Monitor BP if persistently elevated will consider adding Hydralaxine Consultation Date/Type/Reason Admit Date/Time September 02, 2016 at 08:37 Constitutional: no complaints Psychological: no complaints Social History Smoking Status: Never smoker Exam/Review of Systems Vital Signs Vitals Vital Signs Date Time Temp Pulse Resp B/P Pulse Ox O2 Delivery O2 Flow Rate FiO2 09/08/16 08:31 98 158/74 09/08/16 07:46 98.5 18 96 09/06/16 16:00 Room Air 09/05/16 17:32 2.0 Intake and Output 09/07/16 09/07/16 09/08/16 15:00 23:00 07:00 Intake Total 425 ml 970 ml 360 ml Output Total 1100 ml 1200 ml Balance 425 ml -130 ml -840 ml Exam Constitutional: alert Head: atraumatic, normocephalic Neck: non-tender, supple Respiratory: clear to auscultation Cardiovascular: regular rate and rhythm Gastrointestinal: nl liver, spleen, soft Extremities: normal pulses Results Result Diagram: 09/08/16 0515 09/08/16 0515 Results 24 hrs Laboratory Tests Test 09/07/16 20:39 09/08/16 05:15 09/08/16 08:36 09/08/16 12:10 Bedside Glucose 234 H 202 217 White Blood Count 9.7 Red Blood Count 3.37 L Hemoglobin 10.2 L Hematocrit 30.7 L Mean Corpuscular Volume 91.1 Mean Corpuscular Hemoglobin 30.3 Mean Corpuscular Hemoglobin Concent 33.2 Red Cell Distribution Width 14.3 Platelet Count 259 # Mean Platelet Volume 10.2 Neutrophils % 59.9 Lymphocytes % 28.2 Monocytes % 8.4 Eosinophils % 2.7 Basophils % 0.3 Nucleated Red Blood Cells % 0.0 Neutrophils # 5.8 Lymphocytes # 2.7 Monocytes # 0.8 Eosinophils # 0.3 Basophils # 0.0 Nucleated Red Blood Cells # 0.0 Prothrombin Time 14.4 H Prothrombin Time Ratio 1.1 INR International Normalized Ratio 1.12 Activated Partial Thromboplast Time 28.7 Sodium Level 136 Potassium Level 3.7 Chloride Level 106 Carbon Dioxide Level 24 Anion Gap 10 Blood Urea Nitrogen 12 Creatinine 0.78 Glucose Level 205 Calcium Level 8.5 Medications Medications Current Medications Lorazepam (Ativan) 0.5 mg Q6H PRN IV ANXIETY Last administered on 09/05/16 06: 38; Admin Dose 0.5 MG; Start 09/02/16 at 10:00 Ondansetron HCl (Zofran Inj) 4 mg Q6H PRN IV NAUSEA AND/OR VOMITING; Start at 10:00 Acetaminophen (Tylenol Tab) 650 mg Q6H PRN PO PAIN LEVEL 1-3 OR FEVER; Start at 10:00 Magnesium Hydroxide (Milk Of Mag) 30 ml DAILY PRN PO CONSTIPATION Last administered on 09/06/16 14:27; Admin Dose 30 ML; Start 09/02/16 at 10:00 Bisacodyl (Dulcolax) 5 mg DAILY PRN PO CONSTIPATION Last administered on 14:39; Admin Dose 5 MG; Start 09/02/16 at 10:00 Famotidine (Pepcid) 20 mg Q24H PO Last administered on 09/07/16 20:46; Admin Dose 20 MG; Start 09/02/16 at 21:00 Enoxaparin Sodium (Lovenox) 30 mg DAILY SC Last administered on 09/08/16 08:47 ; Admin Dose 30 MG; Start 09/03/16 at 09:00 Hydralazine HCl (Apresoline) 10 mg Q6H PRN IV SBP>160 Last administered on 09/04 10:39; Admin Dose 10 MG; Start 09/02/16 at 10:00 Amlodipine Besylate (Norvasc) 5 mg DAILY PO Last administered on 09/08/16 08: 33; Admin Dose 5 MG; Start 09/03/16 at 09:00 Calcium Carbonate (Oyster Shell Calcium) 0.5 gm DAILY PO Last administered on 08:32; Admin Dose 0.5 GM; Start 09/03/16 at 09:00 Docusate Sodium (Colace) 100 mg TID PO Last administered on 09/08/16 12:07; Admin Dose 100 MG; Start 09/02/16 at 13:00 EZETIMIBE (Zetia) 10 mg HS PO Last administered on 09/07/16 20:46; Admin Dose 10 MG; Start 09/02/16 at 21:00 Ferrous Sulfate (Ferrous Sulfate (Ec)) 325 mg DAILY PO Last administered on 08:33; Admin Dose 325 MG; Start 09/03/16 at 09:00 Solifenacin (Vesicare) 5 mg DAILY PO Last administered on 09/08/16 08:33; Admin Dose 5 MG; Start 09/03/16 at 09:00 Losartan Potassium (Cozaar) 100 mg DAILY PO Last administered on 09/08/16 08: 33; Admin Dose 100 MG; Start 09/03/16 at 09:00 Cholecalciferol (Vitamin D) 1,000 unit DAILY PO Last administered on 09/08/16 08:32; Admin Dose 1,000 UNIT; Start 09/03/16 at 09:00 Insulin Glargine (Lantus) 15 unit DAILY@20 SC Last administered on 09/07/16 20 :45; Admin Dose 15 UNIT; Start 09/02/16 at 20:00 Miscellaneous Information 1 ea NOTE XX ; Start 09/02/16 at 10:30 Glucose (Glutose) 15 gm Q15M PRN PO DECREASED GLUCOSE; Start 09/02/16 at 10:30 Glucose (Glutose) 22.5 gm Q15M PRN PO DECREASED GLUCOSE; Start 09/02/16 at 10: 30 Dextrose (D50w Syringe) 25 ml Q15M PRN IV DECREASED GLUCOSE; Start 09/02/16 at 10:30 Dextrose (D50w Syringe) 50 ml Q15M PRN IV DECREASED GLUCOSE; Start 09/02/16 at 10:30 Glucagon (Glucagen) 1 mg Q15M PRN IM DECREASED GLUCOSE; Start 09/02/16 at 10:30 Glucose (Glutose) 15 gm Q15M PRN BUCCAL DECREASED GLUCOSE; Start 09/02/16 at 10 :30 Diagnostic Test (Pha) (Accu-Chek) 1 ea 02 XX Last administered on 09/06/16 01: 54; Admin Dose 1 EA; Start 09/03/16 at 02:00 Acetaminophen/ Hydrocodone Bitart ([place] (10/325)) 1 tab Q4H PRN PO PAIN Last administered on 09/02/16 22:33; Admin Dose 1 TAB; Start 09/02/16 at 20:30 Acetaminophen/ Hydrocodone Bitart ([place] (10/325)) 2 tab Q4H PRN PO PAIN Last administered on 09/03/16 15:40; Admin Dose 2 TAB; Start 09/03/16 at 04:00 Hydralazine HCl (Apresoline) 10 mg Q4H PRN IV sbp > 160; Start 09/04/16 at 11: 30 Hydromorphone HCl (Dilaudid) 1 mg Q4H PRN IV PAIN Last administered on 00:36; Admin Dose 1 MG; Start 09/04/16 at 12:30 Haloperidol (Haldol) 5 mg Q8H PRN IM PSYCHOSIS Last administered on 09/05/16 18:19; Admin Dose 5 MG; Start 09/05/16 at 11:30 Morphine Sulfate (morphine) 2 mg Q2H PRN IV PAIN; Start 09/05/16 at 17:30 Acetaminophen/ Hydrocodone Bitart ([place] (5/325)) 1 tab Q3H PRN PO PAIN; Start 09/05/16 at 17:30 Acetaminophen (Tylenol Tab) 1,000 mg Q6H PRN PO PAIN AND OR ELEVATED TEMP Last administered on 09/06/16 11:22; Admin Dose 1,000 MG; Start 09/06/16 at 11:30 Polyethylene Glycol (Miralax) 8.5 gm DAILY PO Last administered on 09/08/16 08 :34; Admin Dose 8.5 GM; Start 09/06/16 at 15:00 Atorvastatin Calcium (Lipitor) 20 mg DAILY@21 PO Last administered on 20:46; Admin Dose 20 MG; Start 09/07/16 at 21:00 Metoprolol Succinate (Toprol Xl) 25 mg BID PO Last administered on 09/08/16 08 :33; Admin Dose 25 MG; Start 09/07/16 at 21:00 MICHAEL DOWD M.D. September 08, 2016 17:45
[2016-09-08 19:52] VITALS: BP 167/74; RESP 18
[2016-09-08] MEDS: EZETIMIBE 10 MG TAB PO SCH (21:39)
[2016-09-08] MEDS: ATORVASTATIN 20 MG TAB PO SCH (21:39)
[2016-09-08] MEDS: FAMOTIDINE 20 MG TAB PO SCH (21:39)
[2016-09-08] MEDS: INSULIN GLARGINE [LANtus] 3 ML PEN SC SCH (21:42)
[2016-09-09] MEDS: ACCUCHECK AT 2AM (Patients on SS coverage) XX SCH (02:00)
[2016-09-09 06:34] LABS: INR 1.06; PROTIME 13.8 Sec (12.2-14.2); PT RATIO 1.1
[2016-09-09 06:44] LABS: POTASSIUM 3.6 mmol/L (3.5-5.1)
[2016-09-09 06:46] LABS: CREATININE 0.79 mg/dl (0.44-1.00)
[2016-09-09 06:47] LABS: CALCIUM 8.9 mg/dl (8.4-10.2)
[2016-09-09 07:24] VITALS: BP 150/67; RESP 18
[2016-09-09] MEDS: INSULIN ASPART [NOVOLOG] 3 ML PEN SC SCH ×7 (07:46→21:00)
[2016-09-09] MEDS: DOCUSATE SODIUM 100 MG CAP PO SCH ×3 (07:58→21:00)
[2016-09-09] MEDS: POLYETHYLENE GLYCOL 17 GM PACKET PO SCH (07:58)
[2016-09-09] MEDS: CHOLECALCIFEROL 1,000 UNIT TAB PO SCH (08:23)
[2016-09-09] MEDS: FERROUS SULFATE (EC) 325 MG TAB PO SCH (08:23)
[2016-09-09] MEDS: SOLIFENACIN 5 MG TAB PO SCH (08:24)
[2016-09-09] MEDS: AMLODIPINE 5 MG TAB PO SCH (08:24)
[2016-09-09] MEDS: METOPROLOL (XL) 25 MG TAB PO SCH (08:25)
[2016-09-09] MEDS: LOSARTAN 50 MG TAB PO SCH (08:25)
[2016-09-09] MEDS: CALCIUM CARBONATE 1.25 GM TAB PO SCH (08:25)
[2016-09-09] MEDS: ENOXAPARIN 30 MG/0.3 ML SYG SC SCH (08:34)
--- NOTE | 2016-09-09 15:37 | CONS ---
Date/Time of Note Date/Time of Note DATE: 09/09/16 TIME: 15:33 Assessment/Plan Assessment/Plan Additional Assessment/Plan 1. Coronary artery disease status post myocardial infarction. 2. Obesity. 3. Urinary incontinence. 4. Anxiety disorder. 5. Bilateral carotid artery stenosis. 6. Osteoporosis. 7. Alzheimer disease. 8. History of pelvic fracture s/p ORIF Hypertensive Increased Metoprolol and Norvasc dose Continue losartan Continue Lipitor and Zetia Continue Insulin Continue GI and DVT Prophylaxis Consultation Date/Type/Reason Admit Date/Time September 02, 2016 at 08:37 Initial Consult Date Type of Consultation: Cardiology Referring Provider: ANGELA DURHAM Exam/Review of Systems Vital Signs Vitals Vital Signs Date Time Temp Pulse Resp B/P Pulse Ox O2 Delivery O2 Flow Rate FiO2 09/09/16 07:24 98.2 98 18 150/67 94 09/06/16 16:00 Room Air 09/05/16 17:32 2.0 Intake and Output 09/08/16 09/08/16 09/09/16 15:00 23:00 07:00 Intake Total 128 ml 340 ml Output Total 651 ml 450 ml Balance -523 ml -110 ml Exam Constitutional: alert Head: atraumatic, normocephalic Neck: non-tender, supple Respiratory: clear to auscultation Cardiovascular: regular rate and rhythm Gastrointestinal: nl liver, spleen, soft Extremities: normal pulses Results Result Diagram: 09/08/16 0515 09/09/16 0538 Results 24 hrs Laboratory Tests Test 09/08/16 17:50 09/08/16 21:38 09/09/16 02:02 09/09/16 05:38 Bedside Glucose 178 183 172 Prothrombin Time 13.8 Prothrombin Time Ratio 1.1 INR International Normalized Ratio 1.06 Sodium Level 139 Potassium Level 3.6 Chloride Level 109 Carbon Dioxide Level 27 Anion Gap 7 L Blood Urea Nitrogen 18 Creatinine 0.79 Glucose Level 199 Calcium Level 8.9 Test 09/09/16 07:40 09/09/16 11:59 Bedside Glucose 196 195 Medications Medications Current Medications Lorazepam (Ativan) 0.5 mg Q6H PRN IV ANXIETY Last administered on 09/05/16t 06: 38; Admin Dose 0.5 MG; Start 09/02/16 at 10:00 Ondansetron HCl (Zofran Inj) 4 mg Q6H PRN IV NAUSEA AND/OR VOMITING; Start at 10:00 Acetaminophen (Tylenol Tab) 650 mg Q6H PRN PO PAIN LEVEL 1-3 OR FEVER Last administered on 09/09/16 13:31; Admin Dose 650 MG; Start 09/02/16 at 10:00 Magnesium Hydroxide (Milk Of Mag) 30 ml DAILY PRN PO CONSTIPATION Last administered on 09/06/16 14:27; Admin Dose 30 ML; Start 09/02/16 at 10:00 Bisacodyl (Dulcolax) 5 mg DAILY PRN PO CONSTIPATION Last administered on 14:39; Admin Dose 5 MG; Start 09/02/16 at 10:00 Famotidine (Pepcid) 20 mg Q24H PO Last administered on 09/08/16 21:39; Admin Dose 20 MG; Start 09/02/16 at 21:00 Enoxaparin Sodium (Lovenox) 30 mg DAILY SC Last administered on 09/09/16 08:34 ; Admin Dose 30 MG; Start 09/03/16 at 09:00 Amlodipine Besylate (Norvasc) 5 mg DAILY PO Last administered on 09/09/16 08: 24; Admin Dose 5 MG; Start 09/03/16 at 09:00 Calcium Carbonate (Oyster Shell Calcium) 0.5 gm DAILY PO Last administered on 08:25; Admin Dose 0.5 GM; Start 09/03/16 at 09:00 Docusate Sodium (Colace) 100 mg TID PO Last administered on 09/08/16 21:39; Admin Dose 100 MG; Start 09/02/16 at 13:00 EZETIMIBE (Zetia) 10 mg HS PO Last administered on 09/08/16 21:39; Admin Dose 10 MG; Start 09/02/16 at 21:00 Ferrous Sulfate (Ferrous Sulfate (Ec)) 325 mg DAILY PO Last administered on 08:23; Admin Dose 325 MG; Start 09/03/16 at 09:00 Solifenacin (Vesicare) 5 mg DAILY PO Last administered on 09/09/16 08:24; Admin Dose 5 MG; Start 09/03/16 at 09:00 Losartan Potassium (Cozaar) 100 mg DAILY PO Last administered on 09/09/16 08: 25; Admin Dose 100 MG; Start 09/03/16 at 09:00 Cholecalciferol (Vitamin D) 1,000 unit DAILY PO Last administered on 09/09/16 08:23; Admin Dose 1,000 UNIT; Start 09/03/16 at 09:00 Insulin Glargine (Lantus) 15 unit DAILY@20 SC Last administered on 09/08/16 21 :42; Admin Dose 15 UNIT; Start 09/02/16 at 20:00 Miscellaneous Information 1 ea NOTE XX ; Start 09/02/16 at 10:30 Glucose (Glutose) 15 gm Q15M PRN PO DECREASED GLUCOSE; Start 09/02/16 at 10:30 Glucose (Glutose) 22.5 gm Q15M PRN PO DECREASED GLUCOSE; Start 09/02/16 at 10: 30 Dextrose (D50w Syringe) 25 ml Q15M PRN IV DECREASED GLUCOSE; Start 09/02/16 at 10:30 Dextrose (D50w Syringe) 50 ml Q15M PRN IV DECREASED GLUCOSE; Start 09/02/16 at 10:30 Glucagon (Glucagen) 1 mg Q15M PRN IM DECREASED GLUCOSE; Start 09/02/16 at 10:30 Glucose (Glutose) 15 gm Q15M PRN BUCCAL DECREASED GLUCOSE; Start 09/02/16 at 10 :30 Diagnostic Test (Pha) (Accu-Chek) 1 ea 02 XX Last administered on 09/06/16 01: 54; Admin Dose 1 EA; Start 09/03/16 at 02:00 Acetaminophen/ Hydrocodone Bitart ([place] (10/325)) 1 tab Q4H PRN PO PAIN Last administered on 09/02/16 22:33; Admin Dose 1 TAB; Start 09/02/16 at 20:30 Acetaminophen/ Hydrocodone Bitart ([place] (10/325)) 2 tab Q4H PRN PO PAIN Last administered on 09/03/16 15:40; Admin Dose 2 TAB; Start 09/03/16 at 04:00 Hydralazine HCl (Apresoline) 10 mg Q4H PRN IV sbp > 160; Start 09/04/16 at 11: 30 Hydromorphone HCl (Dilaudid) 1 mg Q4H PRN IV PAIN Last administered on 00:36; Admin Dose 1 MG; Start 09/04/16 at 12:30 Haloperidol (Haldol) 5 mg Q8H PRN IM PSYCHOSIS Last administered on 09/05/16 18:19; Admin Dose 5 MG; Start 09/05/16 at 11:30 Morphine Sulfate (morphine) 2 mg Q2H PRN IV PAIN; Start 09/05/16 at 17:30 Acetaminophen/ Hydrocodone Bitart ([place] (5/325)) 1 tab Q3H PRN PO PAIN; Start 09/05/16 at 17:30 Acetaminophen (Tylenol Tab) 1,000 mg Q6H PRN PO PAIN AND OR ELEVATED TEMP Last administered on 09/06/16 11:22; Admin Dose 1,000 MG; Start 09/06/16 at 11:30 Polyethylene Glycol (Miralax) 8.5 gm DAILY PO Last administered on 09/08/16 08 :34; Admin Dose 8.5 GM; Start 09/06/16 at 15:00 Atorvastatin Calcium (Lipitor) 20 mg DAILY@21 PO Last administered on 21:39; Admin Dose 20 MG; Start 09/07/16 at 21:00 Metoprolol Succinate (Toprol Xl) 25 mg BID PO Last administered on 09/09/16 08 :25; Admin Dose 25 MG; Start 09/07/16 at 21:00 MICHAEL DOWD M.D. September 09, 2016 15:37
[2016-09-09 16:05] VITALS: BP 162/74; PULSE 88
[2016-09-09] MEDS: AMLODIPINE 10 MG TAB PO SCH (16:11)
--- NOTE | 2016-09-09 17:59 | PN ---
Date/Time of Note Date/Time of Note DATE: 09/09/16 TIME: 17:59 Assessment/Plan VTE Prophylaxis VTE Prophylaxis Intervention: LMWH Lines/Catheters IV Catheter Type (from [facility]): [facility]ine [facility] Assessment/Plan Chief Complaint/Hosp Course 1. Status post mechanical fall with right femoral intratrochanteric and the proximal femoral shaft fracture. * Patient is status post surgical repair September 05, 2016 2. Post op Acute blood loss anemia s/p PRBC transfusion 2. Essential hypertension. controlled, pain control 3. Type 2 diabetes mellitus. The patient will be continued on sliding scale insulin along with basal insulin and premeal insulin. 4. Dyslipidemia. on statin 5. 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 6. Osteoporosis. The patient will be maintained on vitamin D supplements. 7. Leukocytosis. Most probably reactive in origin. Improving. DVT prophylaxis. Subcutaneous Lovenox. GI prophylaxis; pepcid pt is still bedridden, BP stable, As per Orthopedic no weight bearing yet due to complex surgery , will wait for Ortho to clear for PT keep valles catheter for now SNF placement Problems: Subjective 24 Hr Interval Summary Constitutional: no complaints Exam/Review of Systems Vital Signs Vitals Vital Signs Date Time Temp Pulse Resp B/P Pulse Ox O2 Delivery O2 Flow Rate FiO2 09/09/16 16:05 88 162/74 09/09/16 07:24 98.2 18 94 09/06/16 16:00 Room Air 09/05/16 17:32 2.0 Intake and Output 09/08/16 09/08/16 09/09/16 15:00 23:00 07:00 Intake Total 128 ml 340 ml Output Total 651 ml 450 ml Balance -523 ml -110 ml Exam Constitutional: alert Respiratory: clear to auscultation Cardiovascular: regular rate and rhythm Gastrointestinal: soft, No distended Musculoskeletal: nl extremities to inspection Results Result Diagram: 09/08/16 0515 09/09/16 0538 Results 24 hrs Laboratory Tests Test 09/08/16 21:38 09/09/16 02:02 09/09/16 05:38 09/09/16 07:40 Bedside Glucose 183 172 196 Prothrombin Time 13.8 Prothrombin Time Ratio 1.1 INR International Normalized Ratio 1.06 Sodium Level 139 Potassium Level 3.6 Chloride Level 109 Carbon Dioxide Level 27 Anion Gap 7 L Blood Urea Nitrogen 18 Creatinine 0.79 Glucose Level 199 Calcium Level 8.9 Test 09/09/16 11:59 09/09/16 17:25 Bedside Glucose 195 270 H Medications Medications Current Medications Lorazepam (Ativan) 0.5 mg Q6H PRN IV ANXIETY Last administered on 09/05/16 06: 38; Admin Dose 0.5 MG; Start 09/02/16 at 10:00 Ondansetron HCl (Zofran Inj) 4 mg Q6H PRN IV NAUSEA AND/OR VOMITING; Start at 10:00 Acetaminophen (Tylenol Tab) 650 mg Q6H PRN PO PAIN LEVEL 1-3 OR FEVER Last administered on 09/09/16 13:31; Admin Dose 650 MG; Start 09/02/16 at 10:00 Magnesium Hydroxide (Milk Of Mag) 30 ml DAILY PRN PO CONSTIPATION Last administered on 09/06/16 14:27; Admin Dose 30 ML; Start 09/02/16 at 10:00 Bisacodyl (Dulcolax) 5 mg DAILY PRN PO CONSTIPATION Last administered on 14:39; Admin Dose 5 MG; Start 09/02/16 at 10:00 Famotidine (Pepcid) 20 mg Q24H PO Last administered on 09/08/16 21:39; Admin Dose 20 MG; Start 09/02/16 at 21:00 Enoxaparin Sodium (Lovenox) 30 mg DAILY SC Last administered on 09/09/16 08:34 ; Admin Dose 30 MG; Start 09/03/16 at 09:00 Calcium Carbonate (Oyster Shell Calcium) 0.5 gm DAILY PO Last administered on 08:25; Admin Dose 0.5 GM; Start 09/03/16 at 09:00 Docusate Sodium (Colace) 100 mg TID PO Last administered on 09/08/16 21:39; Admin Dose 100 MG; Start 09/02/16 at 13:00 EZETIMIBE (Zetia) 10 mg HS PO Last administered on 09/08/16 21:39; Admin Dose 10 MG; Start 09/02/16 at 21:00 Ferrous Sulfate (Ferrous Sulfate (Ec)) 325 mg DAILY PO Last administered on 08:23; Admin Dose 325 MG; Start 09/03/16 at 09:00 Solifenacin (Vesicare) 5 mg DAILY PO Last administered on 09/09/16 08:24; Admin Dose 5 MG; Start 09/03/16 at 09:00 Losartan Potassium (Cozaar) 100 mg DAILY PO Last administered on 09/09/16 08: 25; Admin Dose 100 MG; Start 09/03/16 at 09:00 Cholecalciferol (Vitamin D) 1,000 unit DAILY PO Last administered on 09/09/16 08:23; Admin Dose 1,000 UNIT; Start 09/03/16 at 09:00 Insulin Glargine (Lantus) 15 unit DAILY@20 SC Last administered on 09/08/16 21 :42; Admin Dose 15 UNIT; Start 09/02/16 at 20:00 Miscellaneous Information 1 ea NOTE XX ; Start 09/02/16 at 10:30 Glucose (Glutose) 15 gm Q15M PRN PO DECREASED GLUCOSE; Start 09/02/16 at 10:30 Glucose (Glutose) 22.5 gm Q15M PRN PO DECREASED GLUCOSE; Start 09/02/16 at 10: 30 Dextrose (D50w Syringe) 25 ml Q15M PRN IV DECREASED GLUCOSE; Start 09/02/16 at 10:30 Dextrose (D50w Syringe) 50 ml Q15M PRN IV DECREASED GLUCOSE; Start 09/02/16 at 10:30 Glucagon (Glucagen) 1 mg Q15M PRN IM DECREASED GLUCOSE; Start 09/02/16 at 10:30 Glucose (Glutose) 15 gm Q15M PRN BUCCAL DECREASED GLUCOSE; Start 09/02/16 at 10 :30 Diagnostic Test (Pha) (Accu-Chek) 1 ea 02 XX Last administered on 09/06/16 01: 54; Admin Dose 1 EA; Start 09/03/16 at 02:00 Acetaminophen/ Hydrocodone Bitart ([place] (10325)) 1 tab Q4H PRN PO PAIN Last administered on 09/02/16 22:33; Admin Dose 1 TAB; Start 09/02/16 at 20:30 Acetaminophen/ Hydrocodone Bitart ([place] (10/325)) 2 tab Q4H PRN PO PAIN Last administered on 09/03/16 15:40; Admin Dose 2 TAB; Start 09/03/16 at 04:00 Hydralazine HCl (Apresoline) 10 mg Q4H PRN IV sbp > 160; Start 09/04/16 at 11: 30 Hydromorphone HCl (Dilaudid) 1 mg Q4H PRN IV PAIN Last administered on 00:36; Admin Dose 1 MG; Start 09/04/16 at 12:30 Haloperidol (Haldol) 5 mg Q8H PRN IM PSYCHOSIS Last administered on 09/05/16 18:19; Admin Dose 5 MG; Start 09/05/16 at 11:30 Morphine Sulfate (morphine) 2 mg Q2H PRN IV PAIN; Start 09/05/16 at 17:30 Acetaminophen/ Hydrocodone Bitart ([place] (5/325)) 1 tab Q3H PRN PO PAIN; Start 09/05/16 at 17:30 Acetaminophen (Tylenol Tab) 1,000 mg Q6H PRN PO PAIN AND OR ELEVATED TEMP Last administered on 09/06/16 11:22; Admin Dose 1,000 MG; Start 09/06/16 at 11:30 Polyethylene Glycol (Miralax) 8.5 gm DAILY PO Last administered on 09/08/16 08 :34; Admin Dose 8.5 GM; Start 09/06/16 at 15:00 Atorvastatin Calcium (Lipitor) 20 mg DAILY@21 PO Last administered on 21:39; Admin Dose 20 MG; Start 09/07/16 at 21:00 Metoprolol Tartrate (Lopressor) 75 mg BID PO ; Start 09/09/16 at 21:00 Amlodipine Besylate (Norvasc) 10 mg DAILY PO Last administered on 09/09/16 16: 11; Admin Dose 10 MG; Start 09/09/16 at 16:00 EDINSON PAREDES September 09, 2016 17:59
[2016-09-09] MEDS ORDERED: INSULIN ASPART [NOVOLOG] 3 ML PEN SC SCH (18:00)
[2016-09-09 20:07] VITALS: BP 141/65; RESP 20
[2016-09-09] MEDS: FAMOTIDINE 20 MG TAB PO SCH (21:20)
[2016-09-09] MEDS: ATORVASTATIN 20 MG TAB PO SCH (21:20)
[2016-09-09] MEDS: EZETIMIBE 10 MG TAB PO SCH (21:20)
[2016-09-09] MEDS: METOPROLOL 25 MG TAB PO SCH (21:21)
[2016-09-09] MEDS: INSULIN GLARGINE [LANtus] 3 ML PEN SC SCH (21:26)
[2016-09-10] MEDS: ACCUCHECK AT 2AM (Patients on SS coverage) XX SCH (02:00)
[2016-09-10 08:20] VITALS: BP 138/64; RESP 18
[2016-09-10] MEDS: INSULIN ASPART [NOVOLOG] 3 ML PEN SC SCH ×7 (08:31→20:48)
[2016-09-10] MEDS: POLYETHYLENE GLYCOL 17 GM PACKET PO SCH (08:33)
[2016-09-10] MEDS: FERROUS SULFATE (EC) 325 MG TAB PO SCH (08:34)
[2016-09-10] MEDS: SOLIFENACIN 5 MG TAB PO SCH (08:34)
[2016-09-10] MEDS: CALCIUM CARBONATE 1.25 GM TAB PO SCH (08:34)
[2016-09-10] MEDS: AMLODIPINE 10 MG TAB PO SCH (08:35)
[2016-09-10] MEDS: CHOLECALCIFEROL 1,000 UNIT TAB PO SCH (08:35)
[2016-09-10] MEDS: METOPROLOL 25 MG TAB PO SCH (08:36)
[2016-09-10] MEDS: DOCUSATE SODIUM 100 MG CAP PO SCH ×3 (08:36→20:47)
[2016-09-10] MEDS: LOSARTAN 50 MG TAB PO SCH (08:36)
[2016-09-10] MEDS: ENOXAPARIN 30 MG/0.3 ML SYG SC SCH (08:40)
[2016-09-10 10:20] LABS: POTASSIUM 3.1 mmol/L (3.5-5.1)
[2016-09-10 10:23] LABS: CREATININE 0.79 mg/dl (0.44-1.00)
[2016-09-10 10:24] LABS: CALCIUM 9.2 mg/dl (8.4-10.2)
[2016-09-10 10:36] LABS: INR 1.11; PROTIME 14.3 Sec (12.2-14.2); PT RATIO 1.1
--- NOTE | 2016-09-10 12:56 | CONS ---
Date/Time of Note Date/Time of Note DATE: 09/10/16 TIME: 12:54 Assessment/Plan Assessment/Plan Additional Assessment/Plan 1. Coronary artery disease status post myocardial infarction. 2. Obesity. 3. Urinary incontinence. 4. Anxiety disorder. 5. Bilateral carotid artery stenosis. 6. Osteoporosis. 7. Alzheimer disease. 8. History of pelvic fracture s/p ORIF Hypertensive Increased Metoprolol Continue Norvasc Continue losartan Continue Lipitor and Zetia Continue Insulin Continue GI and DVT Prophylaxis Consultation Date/Type/Reason Admit Date/Time September 02, 2016 at 08:37 Type of Consultation: Cardiology Referring Provider: ANGELA DURHAM Exam/Review of Systems Vital Signs Vitals Vital Signs Date Time Temp Pulse Resp B/P Pulse Ox O2 Delivery O2 Flow Rate FiO2 09/10/16 08:20 98.9 97 18 138/64 93 09/06/16 16:00 Room Air Intake and Output 09/09/16 09/09/16 09/10/16 15:00 23:00 07:00 Intake Total 1120 ml 200 ml Output Total 400 ml 550 ml Balance 720 ml -350 ml Exam Constitutional: alert Head: atraumatic, normocephalic Neck: non-tender, supple Respiratory: clear to auscultation Cardiovascular: regular rate and rhythm Gastrointestinal: nl liver, spleen, soft Extremities: normal pulses Results Result Diagram: 09/08/16 0515 09/10/16 0943 Results 24 hrs Laboratory Tests Test 09/09/16 17:25 09/09/16 21:19 09/10/16 07:57 09/10/16 09:43 Bedside Glucose 270 H 159 189 Prothrombin Time 14.3 H Prothrombin Time Ratio 1.1 INR International Normalized Ratio 1.11 Sodium Level 138 Potassium Level 3.1 L Chloride Level 107 Carbon Dioxide Level 29 Anion Gap 5 L Blood Urea Nitrogen 20 Creatinine 0.79 Glucose Level 208 Calcium Level 9.2 Test 09/10/16 12:04 Bedside Glucose 146 Medications Medications Current Medications Lorazepam (Ativan) 0.5 mg Q6H PRN IV ANXIETY Last administered on 09/05/16 06: 38; Admin Dose 0.5 MG; Start 09/02/16 at 10:00 Ondansetron HCl (Zofran Inj) 4 mg Q6H PRN IV NAUSEA AND/OR VOMITING; Start at 10:00 Acetaminophen (Tylenol Tab) 650 mg Q6H PRN PO PAIN LEVEL 1-3 OR FEVER Last administered on 09/09/16 13:31; Admin Dose 650 MG; Start 09/02/16 at 10:00 Magnesium Hydroxide (Milk Of Mag) 30 ml DAILY PRN PO CONSTIPATION Last administered on 09/06/16 14:27; Admin Dose 30 ML; Start 09/02/16 at 10:00 Bisacodyl (Dulcolax) 5 mg DAILY PRN PO CONSTIPATION Last administered on 14:39; Admin Dose 5 MG; Start 09/02/16 at 10:00 Famotidine (Pepcid) 20 mg Q24H PO Last administered on 09/09/16 21:20; Admin Dose 20 MG; Start 09/02/16 at 21:00 Enoxaparin Sodium (Lovenox) 30 mg DAILY SC Last administered on 09/10/16 08:40 ; Admin Dose 30 MG; Start 09/03/16 at 09:00 Calcium Carbonate (Oyster Shell Calcium) 0.5 gm DAILY PO Last administered on 08:34; Admin Dose 0.5 GM; Start 09/03/16 at 09:00 Docusate Sodium (Colace) 100 mg TID PO Last administered on 09/10/16 08:36; Admin Dose 100 MG; Start 09/02/16 at 13:00 EZETIMIBE (Zetia) 10 mg HS PO Last administered on 09/09/16 21:20; Admin Dose 10 MG; Start 09/02/16 at 21:00 Ferrous Sulfate (Ferrous Sulfate (Ec)) 325 mg DAILY PO Last administered on 08:34; Admin Dose 325 MG; Start 09/03/16 at 09:00 Solifenacin (Vesicare) 5 mg DAILY PO Last administered on 09/10/16 08:34; Admin Dose 5 MG; Start 09/03/16 at 09:00 Losartan Potassium (Cozaar) 100 mg DAILY PO Last administered on 09/10/16 08: 36; Admin Dose 100 MG; Start 09/03/16 at 09:00 Cholecalciferol (Vitamin D) 1,000 unit DAILY PO Last administered on 09/10/16 08:35; Admin Dose 1,000 UNIT; Start 09/03/16 at 09:00 Miscellaneous Information 1 ea NOTE XX ; Start 09/02/16 at 10:30 Glucose (Glutose) 15 gm Q15M PRN PO DECREASED GLUCOSE; Start 09/02/16 at 10:30 Glucose (Glutose) 22.5 gm Q15M PRN PO DECREASED GLUCOSE; Start 09/02/16 at 10: 30 Dextrose (D50w Syringe) 25 ml Q15M PRN IV DECREASED GLUCOSE; Start 09/02/16 at 10:30 Dextrose (D50w Syringe) 50 ml Q15M PRN IV DECREASED GLUCOSE; Start 09/02/16 at 10:30 Glucagon (Glucagen) 1 mg Q15M PRN IM DECREASED GLUCOSE; Start 09/02/16 at 10:30 Glucose (Glutose) 15 gm Q15M PRN BUCCAL DECREASED GLUCOSE; Start 09/02/16 at 10 :30 Diagnostic Test (Pha) (Accu-Chek) 1 ea 02 XX Last administered on 09/06/16 01: 54; Admin Dose 1 EA; Start 09/03/16 at 02:00 Acetaminophen/ Hydrocodone Bitart ([place] (10/325)) 1 tab Q4H PRN PO PAIN Last administered on 09/02/16 22:33; Admin Dose 1 TAB; Start 09/02/16 at 20:30 Acetaminophen/ Hydrocodone Bitart ([place] (10/325)) 2 tab Q4H PRN PO PAIN Last administered on 09/03/16 15:40; Admin Dose 2 TAB; Start 09/03/16 at 04:00 Hydralazine HCl (Apresoline) 10 mg Q4H PRN IV sbp > 160; Start 09/04/16 at 11: 30 Hydromorphone HCl (Dilaudid) 1 mg Q4H PRN IV PAIN Last administered on 00:36; Admin Dose 1 MG; Start 09/04/16 at 12:30 Haloperidol (Haldol) 5 mg Q8H PRN IM PSYCHOSIS Last administered on 09/05/16 18:19; Admin Dose 5 MG; Start 09/05/16 at 11:30 Morphine Sulfate (morphine) 2 mg Q2H PRN IV PAIN; Start 09/05/16 at 17:30 Acetaminophen/ Hydrocodone Bitart ([place] (5/325)) 1 tab Q3H PRN PO PAIN; Start 09/05/16 at 17:30 Acetaminophen (Tylenol Tab) 1,000 mg Q6H PRN PO PAIN AND OR ELEVATED TEMP Last administered on 09/06/16 11:22; Admin Dose 1,000 MG; Start 09/06/16 at 11:30 Polyethylene Glycol (Miralax) 8.5 gm DAILY PO Last administered on 09/10/16 08 :33; Admin Dose 8.5 GM; Start 09/06/16 at 15:00 Atorvastatin Calcium (Lipitor) 20 mg DAILY@21 PO Last administered on 21:20; Admin Dose 20 MG; Start 09/07/16 at 21:00 Metoprolol Tartrate (Lopressor) 75 mg BID PO Last administered on 09/10/16 08: 36; Admin Dose 75 MG; Start 09/09/16 at 21:00 Amlodipine Besylate (Norvasc) 10 mg DAILY PO Last administered on 09/10/16 08: 35; Admin Dose 10 MG; Start 09/09/16 at 16:00 Insulin Glargine (Lantus) 18 unit DAILY@20 SC Last administered on 09/09/16 21 :26; Admin Dose 18 UNIT; Start 09/09/16 at 20:00 MICHAEL DOWD M.D. September 10, 2016 12:56
[2016-09-10] MEDS: METOPROLOL 100 MG TAB PO SCH ×2 (13:31→20:48)
--- NOTE | 2016-09-10 14:41 | PN ---
Date/Time of Note Date/Time of Note DATE: 09/10/16 TIME: 14:35 Assessment/Plan VTE Prophylaxis VTE Prophylaxis Intervention: LMWH Lines/Catheters IV Catheter Type (from Nrs): Saline Lock Urinary Cath still in place: Yes Reason Cath still needed: other (indicate) (Severe debility) Assessment/Plan Assessment/Plan 1. Status post mechanical fall with right femoral intratrochanteric and the proximal femoral shaft fracture. * Patient is status post surgical repair September 05, 2016 * Recovery progress very slow from PT notes / needs SNF 2. Post op Acute blood loss anemia s/p PRBC transfusion 2. Essential hypertension. controlled, pain control 3. Type 2 diabetes mellitus. The patient will be continued on sliding scale insulin along with basal insulin and premeal insulin. 4. Dyslipidemia. on statin 5. 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 6. Osteoporosis. The patient will be maintained on vitamin D supplements. 7. Leukocytosis. Most probably reactive in origin. Improving. 8. Confusion likely secondary to dementia DISPO: * Case mgt working on placement * Confusion makes patient at high fall risk /strict fall precautions * Start low dose Seroquel at bedtime. * Continue supportive care * DVT prophylaxis. Subcutaneous Lovenox. * GI prophylaxis; pepcid Subjective 24 Hr Interval Summary Free Text/Dictation Patient seen and examined. Nursing reports no acute overnight events. Patient with episodes of confusion. Patient is unable to ambulate but wants to get out of bed to use the bathroom. Does not seem to understand even with educational sign language interpreter. Exam/Review of Systems Vital Signs Vitals Vital Signs Date Time Temp Pulse Resp B/P Pulse Ox O2 Delivery O2 Flow Rate FiO2 09/10/16 08:20 98.9 97 18 138/64 93 09/06/16 16:00 Room Air Intake and Output 09/09/16 09/09/16 09/10/16 15:00 23:00 07:00 Intake Total 1120 ml 200 ml Output Total 400 ml 550 ml Balance 720 ml -350 ml Exam Constitutional: Alert and confused No distress Head: atraumatic, normocephalic Eyes: PERRL, No icteric ENMT: mucosa pink and moist Neck: non-tender, supple Respiratory: clear to auscultation, No labored breathing Cardiovascular: regular rate and rhythm, No murmurs/extra sounds Gastrointestinal: bowel sounds, non-tender, soft Extremities: No edema Neurological: No focal weakness Results Result Diagram: 09/08/16 0515 09/10/16 0943 Results 24 hrs Laboratory Tests Test 09/09/16 17:25 09/09/16 21:19 09/10/16 07:57 09/10/16 09:43 Bedside Glucose 270 H 159 189 Prothrombin Time 14.3 H Prothrombin Time Ratio 1.1 INR International Normalized Ratio 1.11 Sodium Level 138 Potassium Level 3.1 L Chloride Level 107 Carbon Dioxide Level 29 Anion Gap 5 L Blood Urea Nitrogen 20 Creatinine 0.79 Glucose Level 208 Calcium Level 9.2 Test 09/10/16 12:04 Bedside Glucose 146 Medications Medications Current Medications Lorazepam (Ativan) 0.5 mg Q6H PRN IV ANXIETY Last administered on 09/05/16 06: 38; Admin Dose 0.5 MG; Start 09/02/16 at 10:00 Ondansetron HCl (Zofran Inj) 4 mg Q6H PRN IV NAUSEA AND/OR VOMITING; Start at 10:00 Acetaminophen (Tylenol Tab) 650 mg Q6H PRN PO PAIN LEVEL 1-3 OR FEVER Last administered on 09/09/16 13:31; Admin Dose 650 MG; Start 09/02/16 at 10:00 Magnesium Hydroxide (Milk Of Mag) 30 ml DAILY PRN PO CONSTIPATION Last administered on 09/06/16 14:27; Admin Dose 30 ML; Start 09/02/16 at 10:00 Bisacodyl (Dulcolax) 5 mg DAILY PRN PO CONSTIPATION Last administered on 14:39; Admin Dose 5 MG; Start 09/02/16 at 10:00 Famotidine (Pepcid) 20 mg Q24H PO Last administered on 09/09/16 21:20; Admin Dose 20 MG; Start 09/02/16 at 21:00 Enoxaparin Sodium (Lovenox) 30 mg DAILY SC Last administered on 09/10/16 08:40 ; Admin Dose 30 MG; Start 09/03/16 at 09:00 Calcium Carbonate (Oyster Shell Calcium) 0.5 gm DAILY PO Last administered on 08:34; Admin Dose 0.5 GM; Start 09/03/16 at 09:00 Docusate Sodium (Colace) 100 mg TID PO Last administered on 09/10/16 13:31; Admin Dose 100 MG; Start 09/02/16 at 13:00 EZETIMIBE (Zetia) 10 mg HS PO Last administered on 09/09/16 21:20; Admin Dose 10 MG; Start 09/02/16 at 21:00 Ferrous Sulfate (Ferrous Sulfate (Ec)) 325 mg DAILY PO Last administered on 08:34; Admin Dose 325 MG; Start 09/03/16 at 09:00 Solifenacin (Vesicare) 5 mg DAILY PO Last administered on 09/10/16 08:34; Admin Dose 5 MG; Start 09/03/16 at 09:00 Losartan Potassium (Cozaar) 100 mg DAILY PO Last administered on 09/10/16 08: 36; Admin Dose 100 MG; Start 09/03/16 at 09:00 Cholecalciferol (Vitamin D) 1,000 unit DAILY PO Last administered on 09/10/16 08:35; Admin Dose 1,000 UNIT; Start 09/03/16 at 09:00 Miscellaneous Information 1 ea NOTE XX ; Start 09/02/16 at 10:30 Glucose (Glutose) 15 gm Q15M PRN PO DECREASED GLUCOSE; Start 09/02/16 at 10:30 Glucose (Glutose) 22.5 gm Q15M PRN PO DECREASED GLUCOSE; Start 09/02/16 at 10: 30 Dextrose (D50w Syringe) 25 ml Q15M PRN IV DECREASED GLUCOSE; Start 09/02/16 at 10:30 Dextrose (D50w Syringe) 50 ml Q15M PRN IV DECREASED GLUCOSE; Start 09/02/16 at 10:30 Glucagon (Glucagen) 1 mg Q15M PRN IM DECREASED GLUCOSE; Start 09/02/16 at 10:30 Glucose (Glutose) 15 gm Q15M PRN BUCCAL DECREASED GLUCOSE; Start 09/02/16 at 10 :30 Diagnostic Test (Pha) (Accu-Chek) 1 ea 02 XX Last administered on 09/06/16 01: 54; Admin Dose 1 EA; Start 09/03/16 at 02:00 Acetaminophen/ Hydrocodone Bitart ([place] ()) 1 tab Q4H PRN PO PAIN Last administered on 09/02/16 22:33; Admin Dose 1 TAB; Start 09/02/16 at 20:30 Acetaminophen/ Hydrocodone Bitart ([place] (10/325)) 2 tab Q4H PRN PO PAIN Last administered on 09/03/16 15:40; Admin Dose 2 TAB; Start 09/03/16 at 04:00 Hydralazine HCl (Apresoline) 10 mg Q4H PRN IV sbp > 160; Start 09/04/16 at 11: 30 Hydromorphone HCl (Dilaudid) 1 mg Q4H PRN IV PAIN Last administered on 00:36; Admin Dose 1 MG; Start 09/04/16 at 12:30 Haloperidol (Haldol) 5 mg Q8H PRN IM PSYCHOSIS Last administered on 09/05/16 18:19; Admin Dose 5 MG; Start 09/05/16 at 11:30 Morphine Sulfate (morphine) 2 mg Q2H PRN IV PAIN; Start 09/05/16 at 17:30 Acetaminophen/ Hydrocodone Bitart ([place] (5/325)) 1 tab Q3H PRN PO PAIN; Start 09/05/16 at 17:30 Acetaminophen (Tylenol Tab) 1,000 mg Q6H PRN PO PAIN AND OR ELEVATED TEMP Last administered on 09/06/16 11:22; Admin Dose 1,000 MG; Start 09/06/16 at 11:30 Polyethylene Glycol (Miralax) 8.5 gm DAILY PO Last administered on 09/10/16 08 :33; Admin Dose 8.5 GM; Start 09/06/16 at 15:00 Atorvastatin Calcium (Lipitor) 20 mg DAILY@21 PO Last administered on 21:20; Admin Dose 20 MG; Start 09/07/16 at 21:00 Amlodipine Besylate (Norvasc) 10 mg DAILY PO Last administered on 09/10/16 08: 35; Admin Dose 10 MG; Start 09/09/16 at 16:00 Insulin Glargine (Lantus) 18 unit DAILY@20 SC Last administered on 09/09/16 21 :26; Admin Dose 18 UNIT; Start 09/09/16 at 20:00 Metoprolol Tartrate (Lopressor) 100 mg BID PO Last administered on 5/29/17at 13 :31; Admin Dose 100 MG; Start 09/10/16 at 13:00 ANGELA DURHAM September 10, 2016 14:41
[2016-09-10] MEDS: ACETAMINOPHEN 325 MG TAB PO SCH ×2 (17:36→20:53)
[2016-09-10 19:38] VITALS: BP 122/84; RESP 18
[2016-09-10] MEDS: ATORVASTATIN 20 MG TAB PO SCH (20:47)
[2016-09-10] MEDS: QUETIAPINE 25 MG TAB PO SCH (20:47)
[2016-09-10] MEDS: EZETIMIBE 10 MG TAB PO SCH (20:48)
[2016-09-10] MEDS: FAMOTIDINE 20 MG TAB PO SCH (20:48)
[2016-09-10] MEDS: INSULIN GLARGINE [LANtus] 3 ML PEN SC SCH (20:53)
[2016-09-11] MEDS: ACCUCHECK AT 2AM (Patients on SS coverage) XX SCH (02:00)
[2016-09-11] MEDS: ACETAMINOPHEN 325 MG TAB PO SCH ×5 (03:00→20:52)
[2016-09-11 05:50] LABS: INR 1.02; PROTIME 13.4 Sec (12.2-14.2)
[2016-09-11 05:55] LABS: POTASSIUM 3.5 mmol/L (3.5-5.1)
[2016-09-11 05:58] LABS: CREATININE 0.79 mg/dl (0.44-1.00)
[2016-09-11 07:15] VITALS: BP 144/67; RESP 18
[2016-09-11] MEDS: CALCIUM CARBONATE 1.25 GM TAB PO SCH (08:24)
[2016-09-11] MEDS: POLYETHYLENE GLYCOL 17 GM PACKET PO SCH (08:25)
[2016-09-11] MEDS: SOLIFENACIN 5 MG TAB PO SCH (08:25)
[2016-09-11] MEDS: DOCUSATE SODIUM 100 MG CAP PO SCH ×3 (08:25→20:53)
[2016-09-11] MEDS: CHOLECALCIFEROL 1,000 UNIT TAB PO SCH (08:26)
[2016-09-11] MEDS: METOPROLOL 100 MG TAB PO SCH ×2 (08:26→20:52)
[2016-09-11] MEDS: FERROUS SULFATE (EC) 325 MG TAB PO SCH (08:27)
[2016-09-11] MEDS: LOSARTAN 50 MG TAB PO SCH (08:27)
[2016-09-11] MEDS: AMLODIPINE 10 MG TAB PO SCH (08:27)
[2016-09-11] MEDS: INSULIN ASPART [NOVOLOG] 3 ML PEN SC SCH ×7 (08:36→20:37)
[2016-09-11] MEDS: ENOXAPARIN 30 MG/0.3 ML SYG SC SCH (08:36)
--- NOTE | 2016-09-11 09:23 | CONS ---
Date/Time of Note Date/Time of Note DATE: 09/11/16 TIME: 09:21 Assessment/Plan Assessment/Plan Additional Assessment/Plan 1.Pre-op-for Hip fx- No ischemia by lexiscan/NL EF. NO cardiac contraindication to proceeding to oR on current medications without further noninvasive evaluation at moderate risk. NL EF by echo and no sig valve abnl. Now Post-op s/ p LE ORIF - tolerated procedure well, con't rehab 2. s/p fall-? mechanical - no tachy-kassandra symptoms noted 3. H/O cad/SC - no CP, r/o SC, doubt ischemia 4.HTN - well Rx, con't to keep euvolemic 5.Dyslipidemia - on Rx stable Consultation Date/Type/Reason Admit Date/Time September 02, 2016 at 08:37 Type of Consultation: Cardiology Referring Provider: ANGELA DURHAM 24 HR Interval Summary Free Text/Dictation No acute events - BP in good range - no CP, doubt ischemia ROS: No fever, no chills, no nausea, no vomiting, no diarrhea/constipation No recent weight changes No chest pain, no PND, no orthopnea No dizziness, blurred vision No thirst, no heat or cold intolerance Exam/Review of Systems Vital Signs Vitals Vital Signs Date Time Temp Pulse Resp B/P Pulse Ox O2 Delivery O2 Flow Rate FiO2 09/11/16 07:15 97.8 98 18 144/67 96 Intake and Output 09/10/16 09/10/16 09/11/16 15:00 23:00 07:00 Intake Total 1040 ml 100 ml Output Total 400 ml 300 ml Balance 640 ml -200 ml Exam General: WN/WD/NAD, AOx 2-3 HEENT: Unicetric/atraumatic/EOMI (follows commands) NECK: JVD elevated, no thyromegaly Lymph: no lymphadenopathy HEART: regular with no S3, II/ systolic murmur at apex LUNGS: Coarse sounds ABD: soft, NT, ND, +BS : Intact Neuro: non focal SKIN: chronic changes EXT: trace edema Results Result Diagram: 09/08/16 0515 09/11/16 0520 Results 24 hrs Laboratory Tests Test 09/10/16 09:43 09/10/16 12:04 09/10/16 17:30 09/10/16 20:45 Prothrombin Time 14.3 H Prothrombin Time Ratio 1.1 INR International Normalized Ratio 1.11 Sodium Level 138 Potassium Level 3.1 L Chloride Level 107 Carbon Dioxide Level 29 Anion Gap 5 L Blood Urea Nitrogen 20 Creatinine 0.79 Glucose Level 208 Calcium Level 9.2 Bedside Glucose 146 182 132 Test 09/11/16 05:20 09/11/16 07:54 09/11/16 08:20 Prothrombin Time 13.4 Prothrombin Time Ratio 1.0 INR International Normalized Ratio 1.02 Sodium Level 141 Potassium Level 3.5 Chloride Level 110 Carbon Dioxide Level 28 Anion Gap 7 L Blood Urea Nitrogen 22 H Creatinine 0.79 Glucose Level 227 H Calcium Level 9.0 Lab Scanned Report BLOOD TRANSFUSION Bedside Glucose 219 Medications Medications Current Medications Lorazepam (Ativan) 0.5 mg Q6H PRN IV ANXIETY Last administered on 09/05/16 06: 38; Admin Dose 0.5 MG; Start 09/02/16 at 10:00 Ondansetron HCl (Zofran Inj) 4 mg Q6H PRN IV NAUSEA AND/OR VOMITING; Start at 10:00 Magnesium Hydroxide (Milk Of Mag) 30 ml DAILY PRN PO CONSTIPATION Last administered on 09/06/16 14:27; Admin Dose 30 ML; Start 09/02/16 at 10:00 Bisacodyl (Dulcolax) 5 mg DAILY PRN PO CONSTIPATION Last administered on 14:39; Admin Dose 5 MG; Start 09/02/16 at 10:00 Famotidine (Pepcid) 20 mg Q24H PO Last administered on 09/10/16 20:48; Admin Dose 20 MG; Start 09/02/16 at 21:00 Enoxaparin Sodium (Lovenox) 30 mg DAILY SC Last administered on 09/11/16 08:36 ; Admin Dose 30 MG; Start 09/03/16 at 09:00 Calcium Carbonate (Oyster Shell Calcium) 0.5 gm DAILY PO Last administered on 08:24; Admin Dose 0.5 GM; Start 09/03/16 at 09:00 Docusate Sodium (Colace) 100 mg TID PO Last administered on 09/11/16 08:25; Admin Dose 100 MG; Start 09/02/16 at 13:00 EZETIMIBE (Zetia) 10 mg HS PO Last administered on 09/10/16 20:48; Admin Dose 10 MG; Start 09/02/16 at 21:00 Ferrous Sulfate (Ferrous Sulfate (Ec)) 325 mg DAILY PO Last administered on 08:27; Admin Dose 325 MG; Start 09/03/16 at 09:00 Solifenacin (Vesicare) 5 mg DAILY PO Last administered on 09/11/16 08:25; Admin Dose 5 MG; Start 09/03/16 at 09:00 Losartan Potassium (Cozaar) 100 mg DAILY PO Last administered on 09/11/16 08: 27; Admin Dose 100 MG; Start 09/03/16 at 09:00 Cholecalciferol (Vitamin D) 1,000 unit DAILY PO Last administered on 09/11/16 08:26; Admin Dose 1,000 UNIT; Start 09/03/16 at 09:00 Miscellaneous Information 1 ea NOTE XX ; Start 09/02/16 at 10:30 Glucose (Glutose) 15 gm Q15M PRN PO DECREASED GLUCOSE; Start 09/02/16 at 10:30 Glucose (Glutose) 22.5 gm Q15M PRN PO DECREASED GLUCOSE; Start 09/02/16 at 10: 30 Dextrose (D50w Syringe) 25 ml Q15M PRN IV DECREASED GLUCOSE; Start 09/02/16 at 10:30 Dextrose (D50w Syringe) 50 ml Q15M PRN IV DECREASED GLUCOSE; Start 09/02/16 at 10:30 Glucagon (Glucagen) 1 mg Q15M PRN IM DECREASED GLUCOSE; Start 09/02/16 at 10:30 Glucose (Glutose) 15 gm Q15M PRN BUCCAL DECREASED GLUCOSE; Start 09/02/16 at 10 :30 Diagnostic Test (Pha) (Accu-Chek) 1 ea 02 XX Last administered on 09/06/16 01: 54; Admin Dose 1 EA; Start 09/03/16 at 02:00 Acetaminophen/ Hydrocodone Bitart ([place] (10/325)) 1 tab Q4H PRN PO PAIN Last administered on 09/02/16 22:33; Admin Dose 1 TAB; Start 09/02/16 at 20:30 Acetaminophen/ Hydrocodone Bitart ([place] (10/325)) 2 tab Q4H PRN PO PAIN Last administered on 09/03/16 15:40; Admin Dose 2 TAB; Start 09/03/16 at 04:00 Hydralazine HCl (Apresoline) 10 mg Q4H PRN IV sbp > 160; Start 09/04/16 at 11: 30 Hydromorphone HCl (Dilaudid) 1 mg Q4H PRN IV PAIN Last administered on 00:36; Admin Dose 1 MG; Start 09/04/16 at 12:30 Haloperidol (Haldol) 5 mg Q8H PRN IM PSYCHOSIS Last administered on 09/05/16 18:19; Admin Dose 5 MG; Start 09/05/16 at 11:30 Morphine Sulfate (morphine) 2 mg Q2H PRN IV PAIN; Start 09/05/16 at 17:30 Acetaminophen/ Hydrocodone Bitart ([place] (5/325)) 1 tab Q3H PRN PO PAIN; Start 09/05/16 at 17:30 Polyethylene Glycol (Miralax) 8.5 gm DAILY PO Last administered on 09/11/16 08 :25; Admin Dose 8.5 GM; Start 09/06/16 at 15:00 Atorvastatin Calcium (Lipitor) 20 mg DAILY@21 PO Last administered on 20:47; Admin Dose 20 MG; Start 09/07/16 at 21:00 Amlodipine Besylate (Norvasc) 10 mg DAILY PO Last administered on 09/11/16 08: 27; Admin Dose 10 MG; Start 09/09/16 at 16:00 Insulin Glargine (Lantus) 18 unit DAILY@20 SC Last administered on 09/10/16 20 :53; Admin Dose 18 UNIT; Start 09/09/16 at 20:00 Metoprolol Tartrate (Lopressor) 100 mg BID PO Last administered on 09/11/16 08 :26; Admin Dose 100 MG; Start 09/10/16 at 13:00 Acetaminophen (Tylenol Tab) 650 mg Q6H PRN PO PAIN LEVEL 1-3 OR FEVER; Start at 14:00 Acetaminophen (Tylenol Tab) 650 mg Q6H PO Last administered on 09/11/16 08:26 ; Admin Dose 650 MG; Start 09/10/16 at 15:00; Stop 09/12/16 at 14:59 Quetiapine Fumarate (Seroquel) 25 mg QHS PO Last administered on 09/10/16t 20: 47; Admin Dose 25 MG; Start 09/10/16 at 21:00 SHAILESH SAINI MD September 11, 2016 09:23
--- NOTE | 2016-09-11 10:22 | PN ---
Date/Time of Note Date/Time of Note DATE: 09/11/16 TIME: 10:20 Assessment/Plan VTE Prophylaxis VTE Prophylaxis Intervention: LMWH Lines/Catheters IV Catheter Type (from Nrs): Saline Lock Urinary Cath still in place: Yes Reason Cath still needed: other (indicate) Assessment/Plan Assessment/Plan 1. Status post mechanical fall with right femoral intratrochanteric and the proximal femoral shaft fracture. * Patient is status post surgical repair September 05, 2016 * Recovery progress very slow from PT notes / needs SNF 2. Post op Acute blood loss anemia s/p PRBC transfusion 2. Essential hypertension. controlled, pain control 3. Type 2 diabetes mellitus. The patient will be continued on sliding scale insulin along with basal insulin and premeal insulin. 4. Dyslipidemia. on statin 5. 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 6. Osteoporosis. The patient will be maintained on vitamin D supplements. 7. Leukocytosis. Most probably reactive in origin. Improving. 8. Confusion likely secondary to dementia DISPO: * Started on seroquel yesterday, seems to be tolerating well, closely monitor * Case mgt working on placement * Continue strict fall precautions * Continue supportive care * DVT prophylaxis. Subcutaneous Lovenox. * GI prophylaxis; pepcid Subjective 24 Hr Interval Summary Free Text/Dictation sleeping comfortably Exam/Review of Systems Vital Signs Vitals Vital Signs Date Time Temp Pulse Resp B/P Pulse Ox O2 Delivery O2 Flow Rate FiO2 09/11/16 07:15 97.8 98 18 144/67 96 Intake and Output 09/10/16 09/10/16 09/11/16 15:00 23:00 07:00 Intake Total 1040 ml 100 ml Output Total 400 ml 300 ml Balance 640 ml -200 ml Exam Constitutional: Arousable No distress Head: atraumatic, normocephalic Eyes: PERRL, No icteric ENMT: mucosa pink and moist Neck: non-tender, supple Respiratory: clear to auscultation, No labored breathing Cardiovascular: regular rate and rhythm, No murmurs/extra sounds Gastrointestinal: bowel sounds, non-tender, soft Extremities: No edema Neurological: No focal weakness Results Result Diagram: 09/08/16 0515 09/11/16 0520 Results 24 hrs Laboratory Tests Test 09/10/16 12:04 09/10/16 17:30 09/10/16 20:45 09/11/16 05:20 Bedside Glucose 146 182 132 Prothrombin Time 13.4 Prothrombin Time Ratio 1.0 INR International Normalized Ratio 1.02 Sodium Level 141 Potassium Level 3.5 Chloride Level 110 Carbon Dioxide Level 28 Anion Gap 7 L Blood Urea Nitrogen 22 H Creatinine 0.79 Glucose Level 227 H Calcium Level 9.0 Test 09/11/16 07:54 09/11/16 08:20 Lab Scanned Report BLOOD TRANSFUSION Bedside Glucose 219 Medications Medications Current Medications Lorazepam (Ativan) 0.5 mg Q6H PRN IV ANXIETY Last administered on 09/05/16 06: 38; Admin Dose 0.5 MG; Start 09/02/16 at 10:00 Ondansetron HCl (Zofran Inj) 4 mg Q6H PRN IV NAUSEA AND/OR VOMITING; Start at 10:00 Magnesium Hydroxide (Milk Of Mag) 30 ml DAILY PRN PO CONSTIPATION Last administered on 09/06/16 14:27; Admin Dose 30 ML; Start 09/02/16 at 10:00 Bisacodyl (Dulcolax) 5 mg DAILY PRN PO CONSTIPATION Last administered on 14:39; Admin Dose 5 MG; Start 09/02/16 at 10:00 Famotidine (Pepcid) 20 mg Q24H PO Last administered on 09/10/16 20:48; Admin Dose 20 MG; Start 09/02/16 at 21:00 Enoxaparin Sodium (Lovenox) 30 mg DAILY SC Last administered on 09/11/16 08:36 ; Admin Dose 30 MG; Start 09/03/16 at 09:00 Calcium Carbonate (Oyster Shell Calcium) 0.5 gm DAILY PO Last administered on 08:24; Admin Dose 0.5 GM; Start 09/03/16 at 09:00 Docusate Sodium (Colace) 100 mg TID PO Last administered on 09/11/16 08:25; Admin Dose 100 MG; Start 09/02/16 at 13:00 EZETIMIBE (Zetia) 10 mg HS PO Last administered on 09/10/16 20:48; Admin Dose 10 MG; Start 09/02/16 at 21:00 Ferrous Sulfate (Ferrous Sulfate (Ec)) 325 mg DAILY PO Last administered on 08:27; Admin Dose 325 MG; Start 09/03/16 at 09:00 Solifenacin (Vesicare) 5 mg DAILY PO Last administered on 09/11/16 08:25; Admin Dose 5 MG; Start 09/03/16 at 09:00 Losartan Potassium (Cozaar) 100 mg DAILY PO Last administered on 09/11/16 08: 27; Admin Dose 100 MG; Start 09/03/16 at 09:00 Cholecalciferol (Vitamin D) 1,000 unit DAILY PO Last administered on 09/11/16 08:26; Admin Dose 1,000 UNIT; Start 09/03/16 at 09:00 Miscellaneous Information 1 ea NOTE XX ; Start 09/02/16 at 10:30 Glucose (Glutose) 15 gm Q15M PRN PO DECREASED GLUCOSE; Start 09/02/16 at 10:30 Glucose (Glutose) 22.5 gm Q15M PRN PO DECREASED GLUCOSE; Start 09/02/16 at 10: 30 Dextrose (D50w Syringe) 25 ml Q15M PRN IV DECREASED GLUCOSE; Start 09/02/16 at 10:30 Dextrose (D50w Syringe) 50 ml Q15M PRN IV DECREASED GLUCOSE; Start 09/02/16 at 10:30 Glucagon (Glucagen) 1 mg Q15M PRN IM DECREASED GLUCOSE; Start 09/02/16 at 10:30 Glucose (Glutose) 15 gm Q15M PRN BUCCAL DECREASED GLUCOSE; Start 09/02/16 at 10 :30 Diagnostic Test (Pha) (Accu-Chek) 1 ea 02 XX Last administered on 09/06/16 01: 54; Admin Dose 1 EA; Start 09/03/16 at 02:00 Acetaminophen/ Hydrocodone Bitart ([place] (10/325)) 1 tab Q4H PRN PO PAIN Last administered on 09/02/16 22:33; Admin Dose 1 TAB; Start 09/02/16 at 20:30 Acetaminophen/ Hydrocodone Bitart ([place] (10/325)) 2 tab Q4H PRN PO PAIN Last administered on 09/03/16 15:40; Admin Dose 2 TAB; Start 09/03/16 at 04:00 Hydralazine HCl (Apresoline) 10 mg Q4H PRN IV sbp > 160; Start 09/04/16 at 11: 30 Hydromorphone HCl (Dilaudid) 1 mg Q4H PRN IV PAIN Last administered on 00:36; Admin Dose 1 MG; Start 09/04/16 at 12:30 Haloperidol (Haldol) 5 mg Q8H PRN IM PSYCHOSIS Last administered on 09/05/16 18:19; Admin Dose 5 MG; Start 09/05/16 at 11:30 Morphine Sulfate (morphine) 2 mg Q2H PRN IV PAIN; Start 09/05/16 at 17:30 Acetaminophen/ Hydrocodone Bitart ([place] (5/325)) 1 tab Q3H PRN PO PAIN; Start 09/05/16 at 17:30 Polyethylene Glycol (Miralax) 8.5 gm DAILY PO Last administered on 09/11/16 08 :25; Admin Dose 8.5 GM; Start 09/06/16 at 15:00 Atorvastatin Calcium (Lipitor) 20 mg DAILY@21 PO Last administered on 20:47; Admin Dose 20 MG; Start 09/07/16 at 21:00 Amlodipine Besylate (Norvasc) 10 mg DAILY PO Last administered on 09/11/16 08: 27; Admin Dose 10 MG; Start 09/09/16 at 16:00 Insulin Glargine (Lantus) 18 unit DAILY@20 SC Last administered on 09/10/16 20 :53; Admin Dose 18 UNIT; Start 09/09/16 at 20:00 Metoprolol Tartrate (Lopressor) 100 mg BID PO Last administered on 09/11/16 08 :26; Admin Dose 100 MG; Start 09/10/16 at 13:00 Acetaminophen (Tylenol Tab) 650 mg Q6H PRN PO PAIN LEVEL 1-3 OR FEVER; Start at 14:00 Acetaminophen (Tylenol Tab) 650 mg Q6H PO Last administered on 09/11/16 08:26 ; Admin Dose 650 MG; Start 09/10/16 at 15:00; Stop 09/12/16 at 14:59 Quetiapine Fumarate (Seroquel) 25 mg QHS PO Last administered on 09/10/16 20: 47; Admin Dose 25 MG; Start 09/10/16 at 21:00 ANGELA DURHAM September 11, 2016 10:22
[2016-09-11 20:21] VITALS: BP 179/77; RESP 18
[2016-09-11] MEDS: INSULIN GLARGINE [LANtus] 3 ML PEN SC SCH (20:35)
[2016-09-11] MEDS: QUETIAPINE 25 MG TAB PO SCH (20:51)
[2016-09-11] MEDS: ATORVASTATIN 20 MG TAB PO SCH (20:52)
[2016-09-11] MEDS: FAMOTIDINE 20 MG TAB PO SCH (20:53)
[2016-09-11] MEDS: EZETIMIBE 10 MG TAB PO SCH (20:53)
[2016-09-11 22:00] VITALS: BP 142/70
[2016-09-12] MEDS: ACCUCHECK AT 2AM (Patients on SS coverage) XX SCH (02:00)
[2016-09-12] MEDS: ACETAMINOPHEN 325 MG TAB PO SCH ×2 (03:21→08:48)
[2016-09-12 06:29] LABS: INR 1.01; POTASSIUM 4.3 mmol/L (3.5-5.1); PROTIME 13.3 Sec (12.2-14.2)
[2016-09-12 06:31] LABS: CREATININE 0.85 mg/dl (0.44-1.00)
[2016-09-12 06:32] LABS: CALCIUM 9.2 mg/dl (8.4-10.2)
[2016-09-12 07:27] VITALS: BP 116/56; RESP 16
[2016-09-12] MEDS: INSULIN ASPART [NOVOLOG] 3 ML PEN SC SCH ×3 (08:00→12:08)
[2016-09-12] MEDS: AMLODIPINE 10 MG TAB PO SCH (08:46)
[2016-09-12] MEDS: DOCUSATE SODIUM 100 MG CAP PO SCH ×2 (08:46→13:00)
[2016-09-12] MEDS: SOLIFENACIN 5 MG TAB PO SCH (08:47)
[2016-09-12] MEDS: METOPROLOL 100 MG TAB PO SCH (08:47)
[2016-09-12] MEDS: LOSARTAN 50 MG TAB PO SCH (08:47)
[2016-09-12] MEDS: CALCIUM CARBONATE 1.25 GM TAB PO SCH (08:47)
[2016-09-12] MEDS: FERROUS SULFATE (EC) 325 MG TAB PO SCH (08:47)
[2016-09-12] MEDS: CHOLECALCIFEROL 1,000 UNIT TAB PO SCH (08:47)
[2016-09-12] MEDS: POLYETHYLENE GLYCOL 17 GM PACKET PO SCH (08:48)
[2016-09-12] MEDS: ENOXAPARIN 30 MG/0.3 ML SYG SC SCH (08:57)
--- NOTE | 2016-09-12 10:35 | PDOCDIS ---
Discharge Instructions DIAGNOSIS Discharge Diagnosis: R hip fracture CONDITION Patient Condition: Stable HOME CARE INSTRUCTIONS: Special Diet: Carb Control ACTIVITY: Activity Restrictions: No Weight Bearing (R hip) OTHER ORDERS: Other Orders: * NON WEIGHT BEARING R HIP TILL CLEARED BY DR KWAN * Follow up with DR KWAN in 2 weeks Name, Degree: Scott Kwan MD Specialty: Orthopedic Surgery Comments: Office Address: [address] [place] [address] Office Office ANGELA DURHAM September 12, 2016 10:35
[2016-09-12] MEDS ORDERED: ACET325T40 PO (10:41)
[2016-09-12] MEDS ORDERED: AMLO-147 PO (10:41)
[2016-09-12] MEDS ORDERED: ATOR20TA65 PO (10:41)
[2016-09-12] MEDS ORDERED: ENOX30DI8 SC (10:41)
[2016-09-12] MEDS ORDERED: POLY17PO6 PO (10:41)
[2016-09-12] MEDS ORDERED: LEVOFLOXACIN 500MG/D5W (PMX) 100 ML IVPB SCH (11:00)
[2016-09-12] MEDS ORDERED: MAGNESIUM SULFATE 1 GM/D5W 100 ML IVPB ONE (12:00)
[2016-09-12] MEDS ORDERED: INSULIN ASPART [NOVOLOG] 3 ML PEN SC SCH (12:15)
--- NOTE | 2016-09-12 13:18 | CONS ---
Date/Time of Note Date/Time of Note DATE: 09/12/16 TIME: 13:16 Assessment/Plan Assessment/Plan Chief Complaint/Hosp Course Imp: 1.Pre-op-for Hip fx- No ischemia by lexiscan/NL EF. NO cardiac contraindication to proceeding to oR on current medications without further noninvasive evaluation at moderate risk. NL EF by echo and no sig valve abnl. Now Post-op s/ p LE ORIF 2. s/p fall-? mechanical 3. H/O cad/[place] 4.HTN 5.Dyslipidemia Recc: -Continue BB/ARB/CCB -Continue statin -Continue pain control -Routine post-op care -Follow BP/HR closely which have been somewhat labile Problems: Consultation Date/Type/Reason Admit Date/Time September 02, 2016 at 08:37 Initial Consult Date 09/02/2016 Type of Consultation: Cardiology Reason for Consultation HTN Referring Provider: ANGELA DURHAM Exam/Review of Systems Vital Signs Vitals Vital Signs Date Time Temp Pulse Resp B/P Pulse Ox O2 Delivery O2 Flow Rate FiO2 09/12/16 07:27 98.6 86 16 116/56 94 Intake and Output 09/11/16 09/11/16 09/12/16 15:00 23:00 07:00 Intake Total 1120 ml 400 ml Output Total 350 ml 800 ml Balance 770 ml -400 ml Exam Review of Systems: CONSTITUTIONAL: No fevers, chills. PULMONARY: No sob CARDIOVASCULAR: No chest pain/palpitations GASTROINTESTINAL: No nausea/vomiting. GENITOURINARY: No hematuria/dysuria. MUSCULOSKELETAL: No myagias/arthalgias. PSYCHIATRIC: The patient denies depression. NEUROLOGIC: No weakness Constitutional: alert Psych: no complaints Head: normocephalic ENMT: mucosa pink and moist Neck: jvd (8 cm water), supple Respiratory: diminished breath sounds (at bases/B) Cardiovascular: regular rate and rhythm Gastrointestinal: non-tender, soft Musculoskeletal: muscle tone (normal) Extremities: edema (none) Neurological: other (No focal deficits) Results Result Diagram: 09/08/16 0515 09/12/16 0535 Results 24 hrs Laboratory Tests Test 09/11/16 17:18 09/11/16 20:32 09/12/16 05:30 09/12/16 05:35 Bedside Glucose 202 169 Magnesium Level 1.8 Prothrombin Time 13.3 Prothrombin Time Ratio 1.0 INR International Normalized Ratio 1.01 Sodium Level 142 Potassium Level 4.3 Chloride Level 109 Carbon Dioxide Level 30 Anion Gap 7 L Blood Urea Nitrogen 19 Creatinine 0.85 Glucose Level 194 Calcium Level 9.2 Test 09/12/16 07:48 09/12/16 08:58 09/12/16 11:54 Bedside Glucose 215 254 H Lab Scanned Report BLOOD TRANSFUSION Medications Medications Current Medications Lorazepam (Ativan) 0.5 mg Q6H PRN IV ANXIETY Last administered on 09/05/16 06: 38; Admin Dose 0.5 MG; Start 09/02/16 at 10:00 Ondansetron HCl (Zofran Inj) 4 mg Q6H PRN IV NAUSEA AND/OR VOMITING; Start at 10:00 Magnesium Hydroxide (Milk Of Mag) 30 ml DAILY PRN PO CONSTIPATION Last administered on 09/06/16 14:27; Admin Dose 30 ML; Start 09/02/16 at 10:00 Bisacodyl (Dulcolax) 5 mg DAILY PRN PO CONSTIPATION Last administered on 14:39; Admin Dose 5 MG; Start 09/02/16 at 10:00 Famotidine (Pepcid) 20 mg Q24H PO Last administered on 09/11/16 20:53; Admin Dose 20 MG; Start 09/02/16 at 21:00 Enoxaparin Sodium (Lovenox) 30 mg DAILY SC Last administered on 09/12/16 08:57 ; Admin Dose 30 MG; Start 09/03/16 at 09:00 Calcium Carbonate (Oyster Shell Calcium) 0.5 gm DAILY PO Last administered on 08:47; Admin Dose 0.5 GM; Start 09/03/16 at 09:00 Docusate Sodium (Colace) 100 mg TID PO Last administered on 09/12/16 08:46; Admin Dose 100 MG; Start 09/02/16 at 13:00 EZETIMIBE (Zetia) 10 mg HS PO Last administered on 09/11/16 20:53; Admin Dose 10 MG; Start 09/02/16 at 21:00 Ferrous Sulfate (Ferrous Sulfate (Ec)) 325 mg DAILY PO Last administered on 08:47; Admin Dose 325 MG; Start 09/03/16 at 09:00 Solifenacin (Vesicare) 5 mg DAILY PO Last administered on 09/12/16 08:47; Admin Dose 5 MG; Start 09/03/16 at 09:00 Losartan Potassium (Cozaar) 100 mg DAILY PO Last administered on 09/12/16 08: 47; Admin Dose 100 MG; Start 09/03/16 at 09:00 Cholecalciferol (Vitamin D) 1,000 unit DAILY PO Last administered on 09/12/16 08:47; Admin Dose 1,000 UNIT; Start 09/03/16 at 09:00 Miscellaneous Information 1 ea NOTE XX ; Start 09/02/16 at 10:30 Glucose (Glutose) 15 gm Q15M PRN PO DECREASED GLUCOSE; Start 09/02/16 at 10:30 Glucose (Glutose) 22.5 gm Q15M PRN PO DECREASED GLUCOSE; Start 09/02/16 at 10: 30 Dextrose (D50w Syringe) 25 ml Q15M PRN IV DECREASED GLUCOSE; Start 09/02/16 at 10:30 Dextrose (D50w Syringe) 50 ml Q15M PRN IV DECREASED GLUCOSE; Start 09/02/16 at 10:30 Glucagon (Glucagen) 1 mg Q15M PRN IM DECREASED GLUCOSE; Start 09/02/16 at 10:30 Glucose (Glutose) 15 gm Q15M PRN BUCCAL DECREASED GLUCOSE; Start 09/02/16 at 10 :30 Diagnostic Test (Pha) (Accu-Chek) 1 ea 02 XX Last administered on 09/06/16 01: 54; Admin Dose 1 EA; Start 09/03/16 at 02:00 Acetaminophen/ Hydrocodone Bitart ([place] (10/325)) 1 tab Q4H PRN PO PAIN Last administered on 09/02/16 22:33; Admin Dose 1 TAB; Start 09/02/16 at 20:30 Acetaminophen/ Hydrocodone Bitart ([place] (10/325)) 2 tab Q4H PRN PO PAIN Last administered on 09/03/16 15:40; Admin Dose 2 TAB; Start 09/03/16 at 04:00 Hydralazine HCl (Apresoline) 10 mg Q4H PRN IV sbp > 160; Start 09/04/16 at 11: 30 Hydromorphone HCl (Dilaudid) 1 mg Q4H PRN IV PAIN Last administered on 00:36; Admin Dose 1 MG; Start 09/04/16 at 12:30 Haloperidol (Haldol) 5 mg Q8H PRN IM PSYCHOSIS Last administered on 09/05/16 18:19; Admin Dose 5 MG; Start 09/05/16 at 11:30 Morphine Sulfate (morphine) 2 mg Q2H PRN IV PAIN; Start 09/05/16 at 17:30 Acetaminophen/ Hydrocodone Bitart ([place] (5/325)) 1 tab Q3H PRN PO PAIN; Start 09/05/16 at 17:30 Polyethylene Glycol (Miralax) 8.5 gm DAILY PO Last administered on 09/12/16 08 :48; Admin Dose 8.5 GM; Start 09/06/16 at 15:00 Atorvastatin Calcium (Lipitor) 20 mg DAILY@21 PO Last administered on 20:52; Admin Dose 20 MG; Start 09/07/16 at 21:00 Amlodipine Besylate (Norvasc) 10 mg DAILY PO Last administered on 09/12/16 08: 46; Admin Dose 10 MG; Start 09/09/16 at 16:00 Metoprolol Tartrate (Lopressor) 100 mg BID PO Last administered on 09/12/16 08 :47; Admin Dose 100 MG; Start 09/10/16 at 13:00 Acetaminophen (Tylenol Tab) 650 mg Q6H PRN PO PAIN LEVEL 1-3 OR FEVER; Start at 14:00 Acetaminophen (Tylenol Tab) 650 mg Q6H PO Last administered on 09/12/16 08:48 ; Admin Dose 650 MG; Start 09/10/16 at 15:00; Stop 09/12/16 at 14:59 Quetiapine Fumarate (Seroquel) 25 mg QHS PO Last administered on 09/11/16 20: 51; Admin Dose 25 MG; Start 09/10/16 at 21:00 Insulin Glargine 20 unit 20 unit DAILY@20 SC ; Start 09/12/16 at 20:00 Levofloxacin/ Dextrose (Levaquin 500mg/ D5W 100 ml (Pmx)) 100 ml @ 100 mls/hr Q24H IVPB Last administered on 5/31/17at 11:14; Admin Dose 100 MLS/HR; Start at 11:00 AMANDA DICK September 12, 2016 13:18
[2016-09-12] MEDS ORDERED: ACETAMINOPHEN 325 MG TAB PO PRN (14:00)
[2016-09-12] MEDS ORDERED: NOVO3I SC (14:19)
[2016-09-12] MEDS ORDERED: LANT3I SC (14:19)
[2016-09-12] MEDS ORDERED: METO-407 PO (14:19)
[2016-09-12] MEDS ORDERED: QUET25TA33 PO (14:19)
[2016-09-12] MEDS ORDERED: FER325 PO (14:19)
[2016-09-12] MEDS ORDERED: INSULIN GLARGINE [LANtus] 3 ML PEN SC SCH (20:00)
--- NOTE | 2016-09-13 12:07 | DS ---
Date/Time of Note Date/Time of Note DATE: 09/13/16 TIME: 11:59 Discharge Summary Admission/Discharge Info Admit Date/Time September 02, 2016 at 08:37 Discharge Date/Time September 12, 2016 at 16:55 Final Diagnosis 1. Status post mechanical fall with right femoral intratrochanteric and the proximal femoral shaft fracture. * Patient is status post surgical repair September 05, 2016 * Recovery progress very slow from PT notes / needs SNF 2. Post op Acute blood loss anemia s/p PRBC transfusion 2. Essential hypertension. controlled, pain control 3. Type 2 diabetes mellitus. 4. Dyslipidemia. on statin 5. 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 6. Osteoporosis. The patient will be maintained on vitamin D supplements. 7. Leukocytosis / reactive. resolved 8. Acute on Confusion likely secondary to dementia 9. H/o CAD / MT 10. Klebsiella UTI Patient Condition: Stable Hospital Course The patient was admitted after mechanical fallAnd she was found on x-ray to have a comminuted right intertrochanteric proximal femoral shaft fractures. She was seen by cardiology for cardiac clearance and she underwent a nuclear medicine stress test that showed a normal study with no evidence of perfusion defect or wall motion abnormalities and the left ventricle ejection fraction at stress greater than 70%. Based on this she was cleared for surgery and eventually underwent manipulative reduction of left hip on intramedullary nail placement and placement of fixation device on September 06, 2016. Her postoperative course was however complicated by her previous dementia. Patient was confused a lot and tried to ambulate or get out of bed and she required close monitoring. She however sustained no falls. We tried to stay away from opioids and mood altering medications as much as possible as this seemed to affect her adversely but eventually she was started on low-dose Seroquel at bedtime which greatly improved her disposition. She did have some Haldol as needed prior to surgery and we really did not use this postoperatively. At this time she has begun working with physical therapy even though she has not become ambulant as of yet. She is being discharged to [facility] where she will continue to get rehabilitation and total nursing care. Comorbidities were also managed aggressively per medical records. The patient developed an anemia perioperatively and was transfused 2 units of packed packed red cells. Her diabetes control was also titrated for improved control. She was also found to have a urinary tract infection for which she was treated with IV antibiotics and will be continued on oral antibiotics. For further information and clarification please review the patient's chart. At this time patient has been assessed and remains in stable condition for discharge. Home Meds Active Scripts Insulin Glargine* (Lantus*) 100 Unit/Ml Soln, 20 UNIT SC DAILY@20 for 30 Days Prov:09/12/16 Insulin Aspart* (Novolog Insulin Pen*) 100 Unit/Ml Soln, 8 UNIT SC WITH MEALS for 30 Days Prov:09/12/16 Quetiapine Fumarate* (Quetiapine Fumarate*) 25 Mg Tablet, 25 MG PO QHS for 30 Days, TAB Prov:09/12/16 Metoprolol Tartrate* (Lopressor*) 100 Mg Tablet, 100 MG PO BID for 30 Days, TAB Prov:09/12/16 Ferrous Sulfate* (Ferrous Sulfate*) 325 Mg Tabec, 325 MG PO BID for 30 Days, TAB Prov:09/12/16 Amlodipine Besylate* (Amlodipine Besylate*) 10 Mg Tablet, 10 MG PO DAILY for 30 Days, TAB Prov:09/12/16 Polyethylene Glycol* (Miralax*) 17 Gm Powd.pack, 8.5 GM PO DAILY for 30 Days Prov:09/12/16 Acetaminophen (MAPAP) 325 Mg Tablet, 650 MG PO Q6H Y for PAIN, #60 TAB Prov:09/12/16 Atorvastatin Calcium (Atorvastatin Calcium) 20 Mg Tablet, 20 MG PO DAILY@21 for 30 Days, TAB Prov:09/12/16 Enoxaparin Sodium (Enoxaparin Sodium) 30 Mg/0.3 Ml Syringe, 30 MG SC DAILY for 14 Days till patient is ambulant Prov:09/12/16 Clonidine Hcl* (Clonidine Hcl*) 0.2 Mg Tablet, 0.2 MG PO Q8 Y for SBP>170, #30 TAB Prov:EDINSON PAREDES 03/21/16 Docusate Sodium* (Colace*) 100 Mg Capsule, 100 MG PO TID, #30 Prov:RUDY CARRIZALES MD 01/19/15 Reported Medications Omeprazole* (Omeprazole*) 20 Mg Capsule.dr, 20 MG PO DAILY, #30 CAP 03/18/16 Meclizine Hcl* (Antivert*) 12.5 Mg Tab, 12.5 MG PO Q8H Y for VERTIGO, #30 TAB 03/18/16 Ezetimibe* (Zetia*) 10 Mg Tablet, 10 MG PO HS, TAB 03/18/16 Calcium Carbonate (Oysco-500) 500 Mg Tablet, 500 MG PO DAILY, TAB 03/18/16 Cholecalciferol (Vitamin D3) (Vitamin D3) 50,000 Unit Capsule, 48285 UNIT PO WEEKLY, CAP 03/18/16 Solifenacin* (Vesicare*) 5 Mg Tablet, 5 MG PO DAILY, TAB 03/18/16 Zolpidem Tartrate* (Ambien*) 5 Mg Tablet, 10 MG PO HS Y for INSOMNIA, TAB 01/31/14 Olmesartan Medoxomil (Benicar) 40 Mg Tablet, 40 MG PO DAILY, TAB 01/31/14 Discontinued Reported Medications Rosuvastatin Calcium* (Crestor*) 20 Mg Tablet, 20 MG PO QHS, #30 TAB 03/18/16 Lorazepam* (Lorazepam*) 1 Mg Tablet, 1 MG PO QPM, TAB 01/31/14 Lorazepam* (Lorazepam*) 1 Mg Tablet, 0.5 MG PO QAM, TAB 01/31/14 Sennosides* (Senna*) 8.6 Mg Capsule, 17.2 MG PO BID, CAP 01/31/14 Amlodipine Besylate* (Norvasc*) 5 Mg Tablet, 5 MG PO DAILY, TAB 01/31/14 Metoprolol Succinate* (Toprol XL*) 25 Mg Tab.sr.24h, 25 MG PO DAILY, TAB 01/31/14 Glimepiride* (Glimepiride*) 2 Mg Tablet, 2 MG PO BID, TAB 01/31/14 Discontinued Scripts Hydrocodone Bit-Acetaminophen* ([place]*) 5-325 Mg Tab, 1 TAB PO Q6 Y for PAIN, # 16 TAB Prov:RUDY CARRIZALES MD 01/19/15 Follow-up Plan Continued follow-up is assigned physician at the [facility] facility. Primary Care Provider Janes Narvaez Time spent on discharge: > 30 minutes ANGELA DURHAM Sep 13, 2016 12:07
== END 2016-09-12 16:55 | DRG 481 ==
LOC: E/R 05:07 → MS2 08:37
PROVIDERS: ADMIT Family Medicine; ATTEND Family Medicine
PROC: 4A02XM4 Measurement of Cardiac Total Activity, External Approach (ICD-10-PCS; 2016-09-02)
PROC: 3E033HZ Introduction of Radioactive Substance into Peripheral Vein, Percutaneous Approach (ICD-10-PCS; 2016-09-02)
PROC: C22G1ZZ Tomographic (Tomo) Nuclear Medicine Imaging of Myocardium using Technetium 99m (Tc-99m) (ICD-10-PCS; 2016-09-02)
PROC: 0QS806Z Reposition Right Femoral Shaft with Intramedullary Internal Fixation Device, Open Approach (ICD-10-PCS; 2016-09-05)
PROC: 0QS606Z Reposition Right Upper Femur with Intramedullary Internal Fixation Device, Open Approach (ICD-10-PCS; principal; 2016-09-05 13:30)
PROC: 30233N1 Transfusion of Nonautologous Red Blood Cells into Peripheral Vein, Percutaneous Approach (ICD-10-PCS; 2016-09-06)
DX: S72.141A Displaced intertrochanteric fracture of right femur, initial encounter for closed fracture (principal); N39.0 Urinary tract infection, site not specified; G30.9 Alzheimer's disease, unspecified; D62 Acute posthemorrhagic anemia; I10 Essential (primary) hypertension; E11.9 Type 2 diabetes mellitus without complications; F02.80 Dementia in other diseases classified elsewhere, unspecified severity, without behavioral disturbance, psychotic disturbance, mood disturbance, and anxiety; B96.1 Klebsiella pneumoniae [K. pneumoniae] as the cause of diseases classified elsewhere; S72.301A Unspecified fracture of shaft of right femur, initial encounter for closed fracture; I25.10 Atherosclerotic heart disease of native coronary artery without angina pectoris; E78.5 Hyperlipidemia, unspecified; Z91.81 History of falling; D72.829 Elevated white blood cell count, unspecified; D17.5 Benign lipomatous neoplasm of intra-abdominal organs; R32 Unspecified urinary incontinence; F41.9 Anxiety disorder, unspecified; E66.9 Obesity, unspecified; Z68.31 Body mass index [BMI] 31.0-31.9, adult; I65.23 Occlusion and stenosis of bilateral carotid arteries; Z87.81 Personal history of (healed) traumatic fracture; I25.2 Old myocardial infarction; W18.30XA Fall on same level, unspecified, initial encounter; M81.0 Age-related osteoporosis without current pathological fracture; Y92.009 Unspecified place in unspecified non-institutional (private) residence as the place of occurrence of the external cause
CPT/HCPCS: 36430; 71010; 73500; 73510; 73530; 78452; 80048; 80053; 80061; 81001; 82306; 82652; 82962; 83735; 83880; 84100; 84439; 84443; 84484; 85025; 85610; 85730; 86850; 86900; 86901; 86920; 87086; 93005; 93017; 93306; 96374; 96375; 96376; 97110; 97162; 97530; A9500; A9505; C1713; J0360; J0690; J1170; J1630; J1650; J1815; J1956; J2060; J2270; J2274; J2370; J2405; J2785; J3010; J3475; J3480; J7030; J7042; J7050; J7121; P9016

== ENCOUNTER 2016-10-13 22:12 | Emergency (ER) | payer MEDICARE, OTHER ==
[~2016-10-13] VITALS: Ht 144.8 cm; Wt 56.8 kg
[~2016-10-13 22:12] MED LIST changes: +ACET325T40 PO; +AMLO-147 PO; -AMLO5TAB4 PO; +ATOR20TA65 PO; +ENOX30DI8 SC; -GLIM2TAB PO; -HYDR-3498 PO; +LANT3I SC; -LORA1TAB PO; +METO-407 PO; -METO25TA7 PO; +NOVO3I SC; +POLY17PO6 PO; +QUET25TA33 PO; -ROSU20TA PO; -SENN8.6C3 PO
[2016-10-13 22:14] VITALS: Ht 144.8 cm; Wt 56.8 kg
--- NOTE | 2016-10-13 22:19 | ERA ---
ER Documentation Chief Complaint Date/Time DATE: 10/13/16 TIME: 22:17 Chief Complaint Right lower back pain HPI The patient is a 81-year-old female, presenting to the ER because of right low back pain. She had right hip and right femur surgery on September [address] Roberts. She has been receiving physical therapy but has not been able to walk. She denies any new trauma, denies fever, chills, neck pain, chest pain, dyspnea, abdominal pain, vomiting, dysuria she complains of constipation. She does not smoke or drink Past medical history: Hypertension, diabetes mellitus, dyslipidemia, CAD, left upper quadrant benign tumor, dementia Past surgical history: Appendectomy, cholecystectomy, right wrist ROS All systems reviewed and are negative except as per history of present illness. Medications Home Meds Active Scripts Tramadol HCl (Tramadol HCl) 50 Mg Tablet, 50 MG PO Q6, #10 TAB Prov:MEDARDO GOODMAN MD 10/14/16 Insulin Glargine* (Lantus*) 100 Unit/Ml Soln, 20 UNIT SC DAILY@20 for 30 Days Prov:ANGELA DURHAM 09/12/16 Insulin Aspart* (Novolog Insulin Pen*) 100 Unit/Ml Soln, 8 UNIT SC WITH MEALS for 30 Days Prov:ANGELA DURHAM 09/12/16 Quetiapine Fumarate* (Quetiapine Fumarate*) 25 Mg Tablet, 25 MG PO QHS for 30 Days, TAB Prov:ANGELA DURHAM 09/12/16 Metoprolol Tartrate* (Lopressor*) 100 Mg Tablet, 100 MG PO BID for 30 Days, TAB Prov:ANGELA DURHAM 09/12/16 Ferrous Sulfate* (Ferrous Sulfate*) 325 Mg Tabec, 325 MG PO BID for 30 Days, TAB Prov:ANGELA DURHAM Bonifacio 09/12/16 Amlodipine Besylate* (Amlodipine Besylate*) 10 Mg Tablet, 10 MG PO DAILY for 30 Days, TAB Prov:ANGELA DURHAM 09/12/16 Polyethylene Glycol* (Miralax*) 17 Gm Powd.pack, 8.5 GM PO DAILY for 30 Days Prov:ANGELA DURHAM 09/12/16 Acetaminophen (MAPAP) 325 Mg Tablet, 650 MG PO Q6H Y for PAIN, #60 TAB Prov:ANGELA DURHAM. 09/12/16 Atorvastatin Calcium (Atorvastatin Calcium) 20 Mg Tablet, 20 MG PO DAILY@21 for 30 Days, TAB Prov:ANGELA DURHAM. 09/12/16 Enoxaparin Sodium (Enoxaparin Sodium) 30 Mg/0.3 Ml Syringe, 30 MG SC DAILY for 14 Days till patient is ambulant Prov:ANGELA DURHAM. 09/12/16 Clonidine Hcl* (Clonidine Hcl*) 0.2 Mg Tablet, 0.2 MG PO Q8 Y for SBP>170, #30 TAB Prov:EDINSON PAREDES 03/21/16 Docusate Sodium* (Colace*) 100 Mg Capsule, 100 MG PO TID, #30 Prov:RUDY CARRIZALES MD 01/19/15 Reported Medications Omeprazole* (Omeprazole*) 20 Mg Capsule.dr, 20 MG PO DAILY, #30 CAP 03/18/16 Meclizine Hcl* (Antivert*) 12.5 Mg Tab, 12.5 MG PO Q8H Y for VERTIGO, #30 TAB 03/18/16 Ezetimibe* (Zetia*) 10 Mg Tablet, 10 MG PO HS, TAB 03/18/16 Calcium Carbonate (Oysco-500) 500 Mg Tablet, 500 MG PO DAILY, TAB 03/18/16 Cholecalciferol (Vitamin D3) (Vitamin D3) 50,000 Unit Capsule, 93975 UNIT PO WEEKLY, CAP 03/18/16 Solifenacin* (Vesicare*) 5 Mg Tablet, 5 MG PO DAILY, TAB 03/18/16 Zolpidem Tartrate* (Ambien*) 5 Mg Tablet, 10 MG PO HS Y for INSOMNIA, TAB 01/31/14 Olmesartan Medoxomil (Benicar) 40 Mg Tablet, 40 MG PO DAILY, TAB 01/31/14 Allergies Allergies: Coded Allergies: aspirin (Verified Allergy, Mild, 01/31/14) ibuprofen (Verified Allergy, Unknown, 01/31/14) PMhx/Soc History of Surgery: Yes (Cataract, Appendectomy, Lap. Sara, Right Colle's fracture) Anesthesia Reaction: No Hx Neurological Disorder: No Hx Respiratory Disorders: No Hx Cardiac Disorders: Yes (HTN) Hx Psychiatric Problems: No Hx Miscellaneous Medical Probl: Yes (HTN, DM2, dyslipidemia, CAD, multiple falls, L pubic rami fx 03/2016) Hx Alcohol Use: No Hx Substance Use: No Hx Tobacco Use: No Physical Exam Vitals Vital Signs Date Time Temp Pulse Resp B/P Pulse Ox O2 Delivery O2 Flow Rate FiO2 10/14/16 00:37 81 16 129/78 96 Room Air 10/13/16 22:14 98.2 69 18 144/97 96 Physical Exam Const: No acute distress. Head: Atraumatic. Eyes: Normal Conjunctiva. ENT: Normal External Ears, Nose and Mouth. Neck: Full range of motion. No meningismus. Resp: Clear to auscultation bilaterally. Cardio: Regular rate and rhythm. Abd: Soft, non distended, normal bowel sounds, non tender. Skin: No petechiae or rashes. Back: No midline or flank tenderness. Ext: No cyanosis, or edema. Mildly tender at the proximal right femur incision, no erythema, no crepitus. She is unable to elevate right leg well after surgery Neur: Awake and alert. No focal deficit Psych: Normal Mood and Affect. Result Diagram: 10/13/16224810/13/162248 Results 24 hrs Laboratory Tests Test 10/13/16 22:49 10/13/16 23:06 White Blood Count 12.610^3/ul Red Blood Count 3.5810^6/ul Hemoglobin 11.1g/dl Hematocrit 34.3% Mean Corpuscular Volume 95.8fl Mean Corpuscular Hemoglobin 31.0pg Mean Corpuscular Hemoglobin Concent 32.4g/dl Red Cell Distribution Width 14.9% Platelet Count 53054^3/UL Mean Platelet Volume 9.4fl Neutrophils % 57.2% Lymphocytes % 33.3% Monocytes % 7.6% Eosinophils % 1.4% Basophils % 0.2% Nucleated Red Blood Cells % 0.0/100WBC Neutrophils # 7.210^3/ul Lymphocytes # 4.210^3/ul Monocytes # 1.010^3/ul Eosinophils # 0.210^3/ul Basophils # 0.010^3/ul Nucleated Red Blood Cells # 0.010^3/ul Sodium Level 136mmol/L Potassium Level 4.0mmol/L Chloride Level 102mmol/L Carbon Dioxide Level 24mmol/L Anion Gap 14 Blood Urea Nitrogen 16mg/dl Creatinine 0.80mg/dl Glucose Level 213mg/dl Calcium Level 9.7mg/dl Total Bilirubin 0.1mg/dl Direct Bilirubin 0.00mg/dl Indirect Bilirubin 0.1mg/dl Aspartate Amino Transf (AST/SGOT) 20IU/L Alanine Aminotransferase (ALT/SGPT) 28IU/L Alkaline Phosphatase 71IU/L Total Protein 7.1g/dl Albumin 4.4g/dl Globulin 2.70g/dl Albumin/Globulin Ratio 1.62 Lipase 111U/L Bedside Urine pH (LAB) 6.5 Bedside Urine Protein (LAB) Negative Bedside Urine Glucose (UA) Negative Bedside Urine Ketones (LAB) Negative Bedside Urine Blood Negative Bedside Urine Nitrite (LAB) Negative Bedside Urine Leukocyte Esterase (L Negative Current Medications Medications (Trade) Dose Ordered Sig/Roxie Route PRN Reason Start Time Stop Time Status Last Admin Dose Admin Alprazolam (Xanax) 0.25 mg ONCE ONCE PO 10/14/16 00:00 10/14/16 00:01 DC 10/13/16 23:55 Procedures/[place] [id number] Radiology Main Line: [phone] DIAGNOSTIC IMAGING REPORT Patient: CYNTHIA RAMIREZ : 1935 Age: 81 Sex: F MR #: [id number] DOS: 10/13/16 2242 Ordering MD: MEDARDO GOODMAN MD Location: E/R Room/Bed: PROCEDURE: Right hip. CLINICAL INDICATION: Pain. TECHNIQUE: Two views of the right hip were obtained. COMPARISON: 09/05/2016. FINDINGS: There is comminuted right subtrochanteric fracture status post fixation with intramedullary bob and proximal screw. Alignment is unchanged from the prior study. There is mild narrowing of the right hip joint space. There is diffuse demineralization. There are fractures of the left superior and inferior pubic rami. IMPRESSION: Comminuted right subtrochanteric fracture status post fixation, unchanged. Osteopenia. Fractures of the left superior inferior pubic rami. .Judson Burr MD, MD Date Time Electronically viewed and signed by .Judson Burr MD, MD on 10/14/2016 00:39 .T/ CC: MEDARDO GOODMAN MD [place] [id number] Radiology Main Line: [phone] DIAGNOSTIC IMAGING REPORT Patient: CYNTHIA RAMIREZ : 1935 Age: 81 Sex: F MR #: [id number] DOS: 10/13/16 2242 Ordering MD: MEDARDO GOODMAN MD Location: E/R Room/Bed: PROCEDURE: Right femur. CLINICAL INDICATION: Pain. TECHNIQUE: 4 views of the right femur were performed. COMPARISON: 09/05/2016. FINDINGS: There is comminuted right subtrochanteric fracture status post fixation with intramedullary bob and proximal screw. Alignment is unchanged from the prior study. There is mild narrowing of the right hip joint space. There is diffuse demineralization. IMPRESSION: Comminuted right subtrochanteric fracture status post fixation, unchanged. Osteopenia. .Judson Burr MD, MD Date Time Electronically viewed and signed by .Judson Burr MD, MD on 10/14/2016 00:40 .T/ CC: MEDARDO GOODMAN MD MEDICAL MAKING DECISION: The patient is a 81-year-old female, presenting with acute postoperative pain. She was treated with Xanax 0.25 mg p.o. for anxiety with good response. The differential diagnoses considered include but are not limited to cellulitis , abscess, compartment syndrome, DVT Departure Diagnosis: Primary Impression: Postoperative pain Additional Impression: Anemia Condition: Good Comments She was discharged with [facility] I discussed the findings with the patient. I advised the patient to follow-up with the primary physician and orthopedist Dr. Roberts in about 1-2 days, sooner if needed and return if any concern. MEDARDO GOODMAN MD Oct 13, 2016 22:19
[2016-10-13 23:03] LABS: URINE BLOOD (Dip) POC Negative (NEGATIVE)
[2016-10-13 23:18] LABS: BASOPHILS % 0.2 % (0.0-2.0); EOSINOPHILS # 0.2 10^3/ul (0.0-0.5); EOSINOPHILS % 1.4 % (0.0-7.0); HEMATOCRIT 34.3 % (37.0-47.0); HEMOGLOBIN 11.1 g/dl (12.0-16.0); LYMPHOCYTES # 4.2 10^3/ul (0.8-2.9); LYMPHOCYTES % 33.3 % (15.0-51.0); MEAN CORPUSCULAR HGB CONC 32.4 g/dl (32.0-37.0); MEAN CORPUSCULAR VOLUME 95.8 fl (82.0-101.0); MEAN PLATELET VOLUME 9.4 fl (7.4-10.4); MONOCYTES % 7.6 % (0.0-11.0); NEUTROPHIL # 7.2 10^3/ul (1.6-7.5); NEUTROPHILS % 57.2 % (39.0-77.0); PLATELET COUNT 310 10^3/UL (140-415); RED BLOOD COUNT 3.58 10^6/ul (4.20-5.40); RED CELL DISTRIBUTION WIDTH 14.9 % (11.5-14.5); WHITE BLOOD COUNT 12.6 10^3/ul (4.8-10.8)
[2016-10-13 23:25] LABS: ADD SCAN DIFF NO
[2016-10-13 23:38] LABS: ALBUMIN 4.4 g/dl (3.3-4.9); ALBUMIN/GLOBULIN RATIO 1.62; BILIRUBIN,INDIRECT 0.1 mg/dl (0-1.1); BILIRUBIN,TOTAL 0.1 mg/dl (0.2-1.3); CALCIUM 9.7 mg/dl (8.4-10.2); CREATININE 0.8 mg/dl (0.44-1.00); TOTAL PROTEIN 7.1 g/dl (6.1-8.1)
[2016-10-14] MEDS ORDERED: ALPRAZOLAM 0.25 MG TAB PO ONE
--- NOTE | 2016-10-14 00:39 | RADRPT ---
PROCEDURE: Right hip. CLINICAL INDICATION: Pain. TECHNIQUE: Two views of the right hip were obtained. COMPARISON: 09/05/2016. FINDINGS: There is comminuted right subtrochanteric fracture status post fixation with intramedullary bob and proximal screw. Alignment is unchanged from the prior study. There is mild narrowing of the right hip joint space. There is diffuse demineralization. There are fractures of the left superior and i nferior pubic rami. IMPRESSION: Comminuted right subtrochanteric fracture status post fixation, unchanged. Osteopenia. Fractures of the left superior inferior pubic rami. .Judson Burr MD, MD Date Time Electronically viewed and signed by .Judson Burr MD, MD on 10/14/2016 00:39 .T/
--- NOTE | 2016-10-14 00:40 | RADRPT ---
PROCEDURE: Right femur. CLINICAL INDICATION: Pain. TECHNIQUE: 4 views of the right femur were performed. COMPARISON: 09/05/2016. FINDINGS: There is comminuted right subtrochanteric fracture status post fixation with intramedullary bob and proximal screw. Alignment is unchanged from the prior study. There is mild narrowing of the right hip joint space. There is diffuse demineralization. IMPRESSION: Comminuted right subtrochanteric fracture status post fixation, unchanged. Osteopenia. .Judson Burr MD, Date Time Electronically viewed and signed by .Judson Burr MD, on 10/14/2016 00:40 .T/
[2016-10-14] MEDS ORDERED: TRAM50TA2 PO (01:37)
[2016-10-14 03:00] VITALS: BP 122/53; PULSE 75; RESP 16; TEMP 98.7
== END 2016-10-14 02:55 | disposition home or self-care (01) ==
LOC: E/R 22:12
DX: G89.18 Other acute postprocedural pain (principal); I10 Essential (primary) hypertension; E11.9 Type 2 diabetes mellitus without complications; I25.10 Atherosclerotic heart disease of native coronary artery without angina pectoris; Z79.4 Long term (current) use of insulin
CPT/HCPCS: 36415; 73510; 73550; 80053; 81003; 83690; 85025; 99284; P9612

== ENCOUNTER 2016-12-31 13:58 | Emergency (ER) | payer MEDICARE, OTHER ==
[~2016-12-31] VITALS: Ht 149.9 cm; Wt 54.5 kg
[~2016-12-31 13:58] MED LIST changes: +TRAM50TA2 PO
[2016-12-31 14:05] VITALS: Ht 149.9 cm; Wt 54.5 kg
--- NOTE | 2016-12-31 14:12 | ERA ---
ER Documentation Chief Complaint Date/Time DATE: 12/31/16 TIME: 14:12 Chief Complaint BROUGHT IN VIA EMS DUE TO BILATERAL LOWER EXTREMITIES SWELLING HPI The patient is a 81-year-old female, presenting because she is unable to urinate since last night, very anxious. She denies fever, chills, headache, neck pain, chest pain, dyspnea, abdominal pain, vomiting. She complains of bilateral lower extremity swelling since August 2016 after right hip surgery. She denies hemoptysis, hematemesis. She does not smoke or drink Past medical history: Diabetes mellitus, hypertension, anxiety Past surgical history : right hip replacement ROS All systems reviewed and are negative except as per history of present illness. Medications Home Meds Reported Medications Pantoprazole* (Pantoprazole*) 40 Mg Tablet.dr, 40 MG PO AC BREAKFAST, TAB 12/31/16 Glimepiride* (Glimepiride*) 1 Mg Tablet, 1 MG PO WITH BREAKFAST DINNE, TAB 12/31/16 Amlodipine Besylate* (Amlodipine Besylate*) 10 Mg Tablet, 10 MG PO DAILY, #30 TAB 12/31/16 Metoprolol Succinate* (Toprol XL*) 25 Mg Tab.sr.24h, 25 MG PO DAILY, #30 TAB 12/31/16 Furosemide* (Furosemide*) 20 Mg Tablet, 20 MG PO DAILY, #60 TAB 12/31/16 Trazodone Hcl* (Trazodone Hcl*) 100 Mg Tablet, 100 MG PO QHS, #30 TAB 12/31/16 Calcium Carbonate/Vitamin D3 (OYSTER SHELL CALCIUM TABLET) 1 Each Tablet, 500 MG PO BID, TAB 12/31/16 Docusate Sodium* (Colace*) 100 Mg Capsule, 100 MG PO TID, #60 CAP 12/31/16 Olmesartan Medoxomil (Benicar) 40 Mg Tablet, 40 MG PO DAILY, #30 TAB 12/31/16 Ezetimibe* (Zetia*) 10 Mg Tablet, 10 MG PO HS, TAB 12/31/16 Ergocalciferol (Vitamin D2) (VITAMIN D2) 50,000 Unit Capsule, 36481 UNIT PO Q7D , CAP 12/31/16 Tramadol Hcl* (Ultram*) 50 Mg Tablet, 50 MG PO DAILY Y for PAIN, TAB 12/31/16 Lorazepam* (Lorazepam*) 0.5 Mg Tablet, 0.5 MG PO BID Y for ANXIETY, TAB 12/31/16 Metformin Hcl* (Metformin Hcl*) 500 Mg Tablet, 500 MG PO WITH BREAKFAST DINNE, # 60 TAB 12/31/16 Discontinued Reported Medications Omeprazole* (Omeprazole*) 20 Mg Capsule.dr, 20 MG PO DAILY, #30 CAP 03/18/16 Meclizine Hcl* (Antivert*) 12.5 Mg Tab, 12.5 MG PO Q8H Y for VERTIGO, #30 TAB 03/18/16 Ezetimibe* (Zetia*) 10 Mg Tablet, 10 MG PO HS, TAB 03/18/16 Calcium Carbonate (Oysco-500) 500 Mg Tablet, 500 MG PO DAILY, TAB 03/18/16 Cholecalciferol (Vitamin D3) (Vitamin D3) 50,000 Unit Capsule, 28408 UNIT PO WEEKLY, CAP 03/18/16 Solifenacin* (Vesicare*) 5 Mg Tablet, 5 MG PO DAILY, TAB 03/18/16 Zolpidem Tartrate* (Ambien*) 5 Mg Tablet, 10 MG PO HS Y for INSOMNIA, TAB 01/31/14 Olmesartan Medoxomil (Benicar) 40 Mg Tablet, 40 MG PO DAILY, TAB 01/31/14 Discontinued Scripts Tramadol HCl (Tramadol HCl) 50 Mg Tablet, 50 MG PO Q6, #10 TAB Prov:MEDARDO GOODMAN MD 10/14/16 Insulin Glargine* (Lantus*) 100 Unit/Ml Soln, 20 UNIT SC DAILY@20 for 30 Days Prov:ANGELA DURHAM 09/12/16 Insulin Aspart* (Novolog Insulin Pen*) 100 Unit/Ml Soln, 8 UNIT SC WITH MEALS for 30 Days Prov:ANGELA DURHAM 09/12/16 Quetiapine Fumarate* (Quetiapine Fumarate*) 25 Mg Tablet, 25 MG PO QHS for 30 Days, TAB Prov:ANGELA DURHAM 09/12/16 Metoprolol Tartrate* (Lopressor*) 100 Mg Tablet, 100 MG PO BID for 30 Days, TAB Prov:ANGELA DURHAM 09/12/16 Ferrous Sulfate* (Ferrous Sulfate*) 325 Mg Tabec, 325 MG PO BID for 30 Days, TAB Prov:HERMINIO,BOLATITO M. 09/12/16 Amlodipine Besylate* (Amlodipine Besylate*) 10 Mg Tablet, 10 MG PO DAILY for 30 Days, TAB Prov:ANGELA DURHAM. 09/12/16 Polyethylene Glycol* (Miralax*) 17 Gm Powd.pack, 8.5 GM PO DAILY for 30 Days Prov:ANGELA DURHAM 09/12/16 Acetaminophen (MAPAP) 325 Mg Tablet, 650 MG PO Q6H Y for PAIN, #60 TAB Prov:ANGELA DURHAM. 09/12/16 Atorvastatin Calcium (Atorvastatin Calcium) 20 Mg Tablet, 20 MG PO DAILY@21 for 30 Days, TAB Prov:ANGELA DURHAM . 09/12/16 Enoxaparin Sodium (Enoxaparin Sodium) 30 Mg/0.3 Ml Syringe, 30 MG SC DAILY for 14 Days till patient is ambulant Prov:ANGELA DURHAM 09/12/16 Clonidine Hcl* (Clonidine Hcl*) 0.2 Mg Tablet, 0.2 MG PO Q8 Y for SBP>170, #30 TAB Prov:EDINSON PAREDES 03/21/16 Docusate Sodium* (Colace*) 100 Mg Capsule, 100 MG PO TID, #30 Prov:RUDY CARRIZALES MD 01/19/15 Allergies Allergies: Coded Allergies: aspirin (Verified Allergy, Mild, 12/31/16) ibuprofen (Verified Allergy, Unknown, 12/31/16) PMhx/Soc History of Surgery: Yes (Cataract, Appendectomy, Lap. Sara, Right Colle's fracture R hip fx) Anesthesia Reaction: No Hx Neurological Disorder: No Hx Respiratory Disorders: No Hx Cardiac Disorders: Yes (HTN) Hx Psychiatric Problems: No Hx Miscellaneous Medical Probl: Yes (HTN, DM2, dyslipidemia, CAD, multiple falls, L pubic rami fx 03/2016) Hx Alcohol Use: No Hx Substance Use: No Hx Tobacco Use: No Physical Exam Vitals Vital Signs Date Time Temp Pulse Resp B/P Pulse Ox O2 Delivery O2 Flow Rate FiO2 12/31/16 19:11 75 20 164/86 100 Room Air 12/31/16 14:05 98.5 94 18 137/86 98 Physical Exam Const: No acute distress. Head: Atraumatic. Eyes: Normal Conjunctiva. ENT: Normal External Ears, Nose and Mouth. Neck: Full range of motion. No meningismus. Resp: Clear to auscultation bilaterally. Cardio: Regular rate and rhythm. Abd: Soft, distended Urinary bladder, normal bowel sounds, non tender. Skin: No petechiae or rashes. Back: No midline or flank tenderness. Ext: No cyanosis, or minimal bilateral leg edema.No calf tenderness Neur: Awake and alert. No focal deficit Psych: Normal Mood and Affect. Result Diagram: 12/31/16 1432 12/31/16 1432 Results 24 hrs Laboratory Tests Test 12/31/16 14:32 12/31/16 15:04 White Blood Count 10.810^3/ul Red Blood Count 3.8210^6/ul Hemoglobin 12.1g/dl Hematocrit 35.1% Mean Corpuscular Volume 91.9fl Mean Corpuscular Hemoglobin 31.7pg Mean Corpuscular Hemoglobin Concent 34.5g/dl Red Cell Distribution Width 13.7% Platelet Count 98620^3/UL Mean Platelet Volume 9.5fl Neutrophils % 44.8% Lymphocytes % 46.6% Monocytes % 6.5% Eosinophils % 1.4% Basophils % 0.2% Nucleated Red Blood Cells % 0.0/100WBC Neutrophils # 4.910^3/ul Lymphocytes # 5.010^3/ul Monocytes # 0.710^3/ul Eosinophils # 0.210^3/ul Basophils # 0.010^3/ul Nucleated Red Blood Cells # 0.010^3/ul Prothrombin Time 12.9Sec Prothrombin Time Ratio 1.0 INR International Normalized Ratio 0.97 Activated Partial Thromboplast Time 27.0Sec D-Dimer 2470.62ng/ml D-Dimer Comment Sodium Level 140mmol/L Potassium Level 3.4mmol/L Chloride Level 107mmol/L Carbon Dioxide Level 18mmol/L Anion Gap 18 Blood Urea Nitrogen 24mg/dl Creatinine 1.00mg/dl Glucose Level 136mg/dl Calcium Level 10.2mg/dl Total Bilirubin 0.1mg/dl Direct Bilirubin 0.00mg/dl Indirect Bilirubin 0.1mg/dl Aspartate Amino Transf (AST/SGOT) 18IU/L Alanine Aminotransferase (ALT/SGPT) 20IU/L Alkaline Phosphatase 62IU/L B-Type Natriuretic Peptide 133PG/ML Total Protein 7.6g/dl Albumin 4.4g/dl Globulin 3.20g/dl Albumin/Globulin Ratio 1.37 Lipase 116U/L Bedside Urine pH (LAB) 5.5 Bedside Urine Protein (LAB) Negative Bedside Urine Glucose (UA) Negative Bedside Urine Ketones (LAB) Negative Bedside Urine Blood Negative Bedside Urine Nitrite (LAB) Negative Bedside Urine Leukocyte Esterase (L Negative Current Medications Medications (Trade) Dose Ordered Sig/Roxie Route PRN Reason Start Time Stop Time Status Last Admin Dose Admin Alprazolam (Xanax) 0.25 mg ONCE ONCE PO 12/31/16 14:30 12/31/16 14:31 DC 12/31/16 14:27 IV Flush 10 ml 10 ml STK-MED ONCE .ROUTE 12/31/16 16:33 12/31/16 16:34 DC 12/31/16 16:33 Sodium Chloride (NS) 100 ml @ ud STK-MED ONCE .ROUTE 12/31/16 16:33 12/31/16 16:34 DC 12/31/16 16:33 Iodixanol (Visipaque Locm) 100 ml STK-MED ONCE .ROUTE 12/31/16 16:33 12/31/16 16:34 DC 12/31/16 16:33 Procedures/[place] [id number] Radiology Main Line: [phone] DIAGNOSTIC IMAGING REPORT Patient: CYNTHIA RAMIREZ : 1935 Age: 81 Sex: F MR #: [id number] DOS: 12/31/16 [facility]3 Ordering MD: MEDARDO GOODMAN MD Location: E/R Room/Bed: PROCEDURE: Ultrasound of the bilateral lower extremity venous system. CLINICAL INDICATION: Bilateral leg pain and swelling, deep venous thrombosis TECHNIQUE: Cleaning scale with and without compression, color doppler, spectral doppler of the venous system of the bilateral lower extremities was performed. Venous augmentation maneuvers were utilized. COMPARISON: 03/18/2016 FINDINGS: Right: Common femoral vein: Patent. Femoral vein: Patent. Popliteal vein: Patent. Calf veins: Patent. No soft tissue abnormalities are identified. Left: Common femoral vein: Chronic nonocclusive thrombus is present. Femoral vein: Patent. Popliteal vein: Patent. Calf veins: Patent. No soft tissue abnormalities are identified. IMPRESSION: Chronic appearing nonocclusive deep venous thrombus within the left common femoral vein, not seen on the previous examination dated 03/18/2016. RPTAT: AADD .Tj Hackett MD, MD Date Time Electronically viewed and signed by .Tj Hackett MD, MD on 12/31/2016 15:28 .B/ CC: MEDARDO GOODMAN MD [place] [id number] Radiology Main Line: [phone] DIAGNOSTIC IMAGING REPORT Patient: CYNTHIA RAMIREZ : 1935 Age: 81 Sex: F MR #: [id number] DOS: 12/31/16 1413 Ordering MD: MEDARDO GOODMAN MD Location: E/R Room/Bed: PROCEDURE: XR Chest. CLINICAL INDICATION: Abdominal pain TECHNIQUE: AP view of the chest was performed. COMPARISON: 01/31/2014 FINDINGS: Cardiac silhouette is enlarged. Aortic atherosclerotic calcifications are present. There are low lung volumes. There is crowding of the central markings. No focal consolidation or pleural effusion is identified. The osseous structures are intact. IMPRESSION: Crowding of the markings centrally with no definite focal consolidation or pleural effusion. Cardiomegaly and aortic atherosclerosis. RPTAT: QQ .Stefania Lawrence MD, MD Date Time Electronically viewed and signed by .Stefania Lawrence MD, MD on 12/31/2016 14:52 .M/ CC: MEDARDO GOODMAN MD [place] [address] Radiology Main Line: [phone] DIAGNOSTIC IMAGING REPORT Patient: CYNTHIA RAMIREZ : 1935 Age: 81 Sex: F MR #: [id number] [facility] #: [id number] DOS: 12/31/16 1558 Ordering MD: MEDARDO GOODMAN MD Location: E/R Room/Bed: PROCEDURE: CTA Chest and pulmonary angiogram. CLINICAL INDICATION: Chest pain and shortness of breath. TECHNIQUE: CT scan of the chest and CT pulmonary angiogram was performed on a multidetector high-resolution CT scanner. High-resolution thin slice coronal and sagittal imaging was obtained from the axial source images. 3-D volumetric rendered post processing was performed as well. The patient was examined following the uncomplicated intravenous administration of 100 cc of Omnipaque- 350. The images were reviewed on a PACS workstation. The total exam CTDI equals 35.21, and 15 and the total exam DLP equals 511.95 mGy-cm. One or more of the following dose reduction techniques were used: Automated exposure control. Adjustment of the mA and/or kV according to patient size. Use of iterative reconstruction technique. COMPARISON: CT chest 03/18/2016 FINDINGS: CT chest: Scattered small pulmonary nodules are again seen in bilateral lungs including a 4 mm nodule in the left lung base laterally on image 4-61, 3 mm nodule in the right middle lobe and right upper lobe. No focal opacification, effusion, pneumothorax, edema, or new nodules are seen. The central tracheobronchial tree is clear. The mediastinum is unremarkable without evidence for mass or lymphadenopathy. The vascular structures of the mediastinum are normal in course and caliber. The heart size is normal without pericardial thickening or effusion. The axillary, subpectoral, and supraclavicular regions are unremarkable. There is approximately 1.7 cm mildly enhancing nodule abutting the inferior pole of the left thyroid lobe, unchanged. Imaging obtained through the upper abdomen is remarkable for approximately 8.2 x 6.1 cm mixed density fatty and soft tissue mass in the region of the left adrenal gland. The right adrenal gland is unremarkable. The surrounding chest wall is unremarkable. The osseous structures are remarkable for degenerative spondylosis of the spine. CT pulmonary angiogram: No thrombus, clot, filling defect, or pulmonary web is identified. The pulmonary arteries are normal in caliber and morphology. No filling defect is present to suggest pulmonary embolism. There is no evidence for pulmonary arterial hypertension. IMPRESSION: 1. No evidence of major pulmonary embolism. The evaluation of the lower lobe pulmonary artery branches is very limited due to significant breathing artifacts. 2. Normal caliber thoracic aorta with extensive atherosclerotic calcifications. No aortic dissection. 3. Unchanged scattered small pulmonary nodules. 4. Aortic and coronary artery vascular calcifications. 5. Unchanged large fat and soft tissue mass centered in the left adrenal gland most consistent with adrenal myelolipoma. 6. Stable size of the left thyroid exophytic nodule. RPTAT: BB .Natalie Newton MD, MD Date Time Electronically viewed and signed by .Natalie Newton MD, MD on 12/31/2016 17:02 .O/ CC: MEDARDO GOODMAN MD MEDICAL MAKING DECISION: The patient is a 81-year-old female, presenting with acute urinary retention, acute hypokalemia, acute anxiety, chronic left leg DVT. She was treated with Xanax of 45 mg p.o. for her acute anxiety and Gonzalez catheter to drain about 1 L of saline and potassium chloride 40 mg p.o. for acute hypokalemia with good response. The differential diagnoses considered include but are not limited to renal insufficiency, hepatic insufficiency, DVT, cystitis Departure Diagnosis: Primary Impression: Urinary retention Additional Impressions: Hypokalemia Anxiety Chronic deep vein thrombosis (DVT) Condition: Good Comments She was treated with a Gonzalez catheter and referred to see the on-call urologist Dr. Fernandez in the morning and advised to return if any concern MEDARDO GOODMAN MD Dec 31, 2016 14:12
[2016-12-31] MEDS ORDERED: ALPRAZOLAM 0.25 MG TAB PO ONE (14:30)
[2016-12-31 14:45] LABS: ABNORMAL IP MESSAGE 1; BASOPHILS % 0.2 % (0.0-2.0); EOSINOPHILS # 0.2 10^3/ul (0.0-0.5); EOSINOPHILS % 1.4 % (0.0-7.0); HEMATOCRIT 35.1 % (37.0-47.0); HEMOGLOBIN 12.1 g/dl (12.0-16.0); LYMPHOCYTES % 46.6 % (15.0-51.0); MEAN CORPUSCULAR HEMOGLOBIN 31.7 pg (29.0-33.0); MEAN CORPUSCULAR HGB CONC 34.5 g/dl (32.0-37.0); MEAN CORPUSCULAR VOLUME 91.9 fl (82.0-101.0); MEAN PLATELET VOLUME 9.5 fl (7.4-10.4); MONOCYTE # 0.7 10^3/ul (0.3-0.9); MONOCYTES % 6.5 % (0.0-11.0); NEUTROPHIL # 4.9 10^3/ul (1.6-7.5); NEUTROPHILS % 44.8 % (39.0-77.0); PLATELET COUNT 277 10^3/UL (140-415); RED BLOOD COUNT 3.82 10^6/ul (4.20-5.40); RED CELL DISTRIBUTION WIDTH 13.7 % (11.5-14.5); WHITE BLOOD COUNT 10.8 10^3/ul (4.8-10.8)
--- NOTE | 2016-12-31 14:53 | RADRPT ---
PROCEDURE: XR Chest. CLINICAL INDICATION: Abdominal pain TECHNIQUE: AP view of the chest was performed. COMPARISON: 01/31/2014 FINDINGS: Cardiac silhouette is enlarged. Aortic atherosclerotic calcifications are present. There are low lung volumes. There is crowding of the central markings. No focal consolidation or ple ural effusion is identified. The osseous structures are intact. IMPRESSION: Crowding of the markings centrally with no definite focal consolidation or pleural effusion. Cardiomegaly and aortic atherosclerosis. RPTAT: QQ .Stefania Lawrence MD, Date Time Electronically viewed and signed by .Stefania Lawrence MD, on 12/31/2016 14:52 .M/
[2016-12-31 14:58] LABS: URINE BLOOD (Dip) POC Negative (NEGATIVE)
[2016-12-31 15:06] LABS: ALBUMIN 4.4 g/dl (3.3-4.9); ALBUMIN/GLOBULIN RATIO 1.37; BILIRUBIN,INDIRECT 0.1 mg/dl (0-1.1); BILIRUBIN,TOTAL 0.1 mg/dl (0.2-1.3); CALCIUM 10.2 mg/dl (8.4-10.2); POTASSIUM 3.4 mmol/L (3.5-5.1); TOTAL PROTEIN 7.6 g/dl (6.1-8.1)
[2016-12-31 15:17] LABS: D-DIMER 2470.62 ng/ml (<460)
[2016-12-31 15:23] LABS: POSITIVE DIFF @See below
--- NOTE | 2016-12-31 15:28 | RADRPT ---
PROCEDURE: Ultrasound of the bilateral lower extremity venous system. CLINICAL INDICATION: Bilateral leg pain and swelling, deep venous thrombosis TECHNIQUE: Cleaning scale with and without compression, color doppler, spectral doppler of the venous system of the bilateral lower extremities was performed. Venous augmentation maneuvers were utilized . COMPARISON: 03/18/2016 FINDINGS: Right: Common femoral vein: Patent. Femoral vein: Patent. Popliteal vein: Patent. Calf veins: Patent. No soft tissue abnormalities are identified. Left: Common femoral vein: Chronic nonocclusive thrombus is present. Femoral vein: Patent. Popliteal vein: Patent. Calf veins: Patent. No soft tissue abnormalities are identified. IMPRESSION: Chronic appearing nonocclusive deep venous thrombus within the left common femoral vein, not seen on the previous examination dated 03/18/2016. RPTAT: AADD .Tj Hackett MD, Date Time Electronically viewed and signed by .Tj Hackett MD, on 12/31/2016 15:28 .B/
[2016-12-31] MEDS ORDERED: METF500T4 PO (16:05)
[2016-12-31] MEDS ORDERED: LORA0.5T PO (16:05)
[2016-12-31] MEDS ORDERED: ERGO500037 PO (16:06)
[2016-12-31] MEDS ORDERED: TRAM-40 PO (16:06)
[2016-12-31] MEDS ORDERED: OLME40TA14 PO (16:07)
[2016-12-31] MEDS ORDERED: DOCU-144 PO (16:07)
[2016-12-31] MEDS ORDERED: EZET10TA3 PO (16:07)
[2016-12-31] MEDS ORDERED: TRAZ100T15 PO (16:09)
[2016-12-31] MEDS ORDERED: CALC-516 PO (16:09)
[2016-12-31] MEDS ORDERED: FURO20TA3 PO (16:10)
[2016-12-31] MEDS ORDERED: METO-335 PO (16:10)
[2016-12-31] MEDS ORDERED: GLIM1TAB2 PO (16:11)
[2016-12-31] MEDS ORDERED: AMLO-147 PO (16:11)
[2016-12-31] MEDS ORDERED: PANT40TA4 PO (16:11)
[2016-12-31] MEDS ORDERED: IODIXANOL LOCM 100 ML BTL ONE (16:33)
[2016-12-31] MEDS ORDERED: SOD CHLORIDE 0.9% 100 ML ONE (16:33)
[2016-12-31 16:34] LABS: INR 0.97; PROTIME 12.9 Sec (12.2-14.2)
--- NOTE | 2016-12-31 17:03 | RADRPT ---
PROCEDURE: CTA Chest and pulmonary angiogram. CLINICAL INDICATION: Chest pain and shortness of breath. TECHNIQUE: CT scan of the chest and CT pulmonary angiogram was performed on a multidetector high-r esolution CT scanner. High-resolution thin slice coronal and sagittal imaging was obtained from the axial source images. 3-D volumetric rendered post processing was performed as well. The patient w as examined following the uncomplicated intravenous administration of 100 cc of Omnipaque-350. The images were reviewed on a PACS workstation. The total exam CTDI equals 35.21, and 15 and the total e xam DLP equals 511.95 mGy-cm. One or more of the following dose reduction techniques were used: Automated exposure control. Adjustment of the mA and/or kV according to patient size. Use of iterative reconstruction technique. COMPARISON: CT chest 03/18/2016 FINDINGS: CT chest: Scattered small pulmonary nodules are again seen in bilateral lungs including a 4 mm nodule in the l eft lung base laterally on image 4-61, 3 mm nodule in the right middle lobe and right upper lobe. N o focal opacification, effusion, pneumothorax, edema, or new nodules are seen. The central tracheob ronchial tree is clear. The mediastinum is unremarkable without evidence for mass or lymphadenopathy. The vascular structur es of the mediastinum are normal in course and caliber. The heart size is normal without pericardia l thickening or effusion. The axillary, subpectoral, and supraclavicular regions are unremarkable. There is approximately 1.7 cm mildly enhancing nodule abutting the inferior pole of the left thyroi d lobe, unchanged. Imaging obtained through the upper abdomen is remarkable for approximately 8.2 x 6.1 cm mixed densit y fatty and soft tissue mass in the region of the left adrenal gland. The right adrenal gland is un remarkable. The surrounding chest wall is unremarkable. The osseous structures are remarkable for degenerative spondylosis of the spine. CT pulmonary angiogram: No thrombus, clot, filling defect, or pulmonary web is identified. The pulmonary arteries are emir l in caliber and morphology. No filling defect is present to suggest pulmonary embolism. There is no evidence for pulmonary arterial hypertension. IMPRESSION: 1. No evidence of major pulmonary embolism. The evaluation of the lower lobe pulmonary artery branc hes is very limited due to significant breathing artifacts. 2. Normal caliber thoracic aorta with extensive atherosclerotic calcifications. No aortic dissectio n. 3. Unchanged scattered small pulmonary nodules. 4. Aortic and coronary artery vascular calcifications. 5. Unchanged large fat and soft tissue mass centered in the left adrenal gland most consistent with adrenal myelolipoma. 6. Stable size of the left thyroid exophytic nodule. RPTAT: BB .Natalie Newton MD, Date Time Electronically viewed and signed by .Natalie Newton MD, on 12/31/2016 17:02 .O/
[2016-12-31 19:11] VITALS: BP 164/86; PULSE 75; RESP 20
== END 2016-12-31 19:11 | disposition home or self-care (01) ==
LOC: E/R 13:58
DX: R33.9 Retention of urine, unspecified (principal); E87.6 Hypokalemia; F41.9 Anxiety disorder, unspecified; I10 Essential (primary) hypertension; E11.9 Type 2 diabetes mellitus without complications; I25.10 Atherosclerotic heart disease of native coronary artery without angina pectoris; R06.02 Shortness of breath; I82.512 Chronic embolism and thrombosis of left femoral vein; Z79.84 Long term (current) use of oral hypoglycemic drugs; Z96.641 Presence of right artificial hip joint
CPT/HCPCS: 36415; 71010; 71275; 80053; 81003; 83690; 83880; 85025; 85378; 85610; 85730; 93970; 99285; Q9967